=== PATIENT | female | born 1950 | race Caucasian/White ===

== ENCOUNTER → 2016-03-19 | Outpatient (CLI) | payer OTHER, BC ==
[~2016-03-19] MED LIST: ATOR-14 PO; CALC500C3 PO; CLON1TAB3 PO; GLC/500 PO; LOSA100T2 PO; MULT-190 PO; MULTTAB58 PO; OMEP40CA PO; PRED20TA2 PO; ROPI0.5T15 PO; VENL75CA73 PO
--- NOTE | 2016-03-20 06:54 | PAP/PSG TECHNICIAN REPORT ---
[facility] Maintenance Chief Polysomnogram Report Study name: None Report date: 03/20/2016 Study date: 03/19/2016 Referring Physician: JENNIFER CAPUTO M.D. Name: SHAYNA PADRON Interpreting Physician: Johann Pittman M.D. Date of : 1950 Maintenance Chief: Tamika Wood, PSGT. Sex: Female Age: 65 StudyType: PSG/C-PAP Weight: 257.4 lbs Height: 65 years, Height 5' 8" BMI: 39.13 Medications: Clonazepam 1 mg, Omeprazole 40 mg, Atorvastatin 10 mg, Venlafaxine ER 75 mg, Losartan HCTZ 100-25 mg, Metformin 500 mg, Tums. Patient History 65 yr. old female presents [facility] for a diagnostic titration sleep study, pt. has been using c-pap for 15 years. Pt. is on the pressure of 18 cm h20 and is still feeling fatigue and daytime sleepiness. Parameters Monitored NPSG: E1-M2, E2-M1, Fp1-M2, Fp2-M1, F3-M2, F4-M2, F4-M1, C3-M2, C4-M2, C4-M1, O1-M2, O2-M2, O2-M1, T3-M2, T4-M1, P3-M2, P4-M1, CHIN1, CHIN2, HR, EKG, Legs, PFLOW, SNOR, FLOW, CFLOW, Tidal Volume, THOR, ABDO, SpO2, PLTH, CPRESS, ETCO2 Wave, ETCO2, pH Sleep Architecture Sleep Stages Time at Lights Off 10:44:15 PM STAGES Time (min.) TST (%) Time at Lights On 5:33:45 AM Wake 154.5 -- Total Recording Time (TRT) 410.50 min. N1 83.0 33 Total Sleep Period (TSP) 382.5 min. N2 157.5 62 Total Sleep Time (TST) 255.0min. N3 0.0 0 Awake Time 154.5 min. REM 14.5 6 Wake after Sleep Onset 127.5 min. Sleep Efficiency (SE) 62 % Sleep Onset Latency (SHAWN) 27.0 min. Number of Stage 1 Shifts None Awakenings 17 Stage Changes 54 Number of REM periods 2 REM 14.5 6 REM Latency 305.5 min. NREM 240.5 94 Body Position Analysis Supine Right Left Side Prone Vertical Total Sleep Time (min.) 80.0 75.8 139.2 214.97 0.0 0.0 Total Sleep Time (%) 16% 30% 55% 84 0% N/A% Total Sleep Time REM (min.) 0.0 0.0 14.5 None 0.0 0.0 Total Sleep Time NREM (min.) 40.0 75.8 124.7 None 0.0 0.0 Intermittent Wake (min.) 40.0 35.9 78.6 None 0.0 0.0 Total Sleep Period (%) 20% None None None None None Arousals Myoclonus (PLM) * Events Count Index Events Count Index Spontaneous 40 9 Events Awake (PLMW) 6 2.3 Respiratory 10 2.4 Events Asleep w/ Arousal (PLMA) 47 11.1 PLM 46 11 Events Asleep w/o Arousal (PLMS) 312 73.4 Snoring 15 4 Total Asleep 359 84.5 Total 109 26 Total 365 53 Respiratory Analysis * CA OA MA CH H RERA Total Count 0 0 0 0 39 0 39 Index 0.0 0.0 0.0 0 9.2 0 9.2 Mean Duration 0.0 0.0 0.0 0.00 25.7 0.0 25.7 Longest Duration 0.0 0.0 0.0 0.00 0.0 0.0 48.8 Respiratory Event Summary Total Supine ~Supine Right Left Prone REM NREM Apneas Count 0 0 0 0 0 N/A 0 0 Index 0.0 0 0 0.0 0.0 N/A 0 0 Hypopneas (4% Desat) Count 39 29 10 6 4 N/A 0 39 Index 9.2 43.5 3 4.8 1.7 N/A 0.0 9.7 Apneas & All Hypopneas Count 39 29 10 6 4 N/A 0 39 Index 9.2 43 3 5 2 N/A 0.0 9.7 Respiratory Events (Forest Pathology Professor+All Hyp+RERA) Count 39 29 10 6 4 N/A 0 39 Index 9.2 43 3 4.8 1.7 N/A 0.0 9.7 Respiratory Related Arousal Count 10 29 4 4 0 N/A 0 10 Index 2.4 9 1 3 0 N/A 0 2 Snoring Analysis Supine Right Left Prone REM NREM Total Snore duration 11.0 min Snores count 243 143 55 N/A 0 441 441 Snore mean duration 1.5 Sec Snores index 364 113 24 N/A 0.0 110.0 103.8 TST with snoring (%) 4.3% Desaturation Event Summary: Minimum %SpO2 Event Count Mean/Min/Max Duration(sec.) Desaturation Index % Time In Bed > 90 43 29.7 / 9.3 / 59.3 6.6 98.1 86 - 90 0 N/A 0.0 1.8 81 - 85 0 N/A 0.0 0.1 76 - 80 0 N/A 0.0 0.0 71 - 75 0 N/A 0.0 0.0 66 - 70 0 N/A 0.0 0.0 61 - 65 0 N/A 0.0 0.0 56 - 60 0 N/A 0.0 0.0 51 - 55 0 N/A 0.0 0.0 < 50 0 N/A 0.0 0.0 Total REM NREM Awake <50% 0.0 min. 0.0 min. 0.0 min. 0.0 min. 51 - 60% 0.0 min. 0.0 min. 0.0 min. 0.0 min. 61 - 70% 0.0 min. 0.0 min. 0.0 min. 0.0 min. 71 - 80% 0.0 min. 0.0 min. 0.0 min. 0.0 min. 81 - 90% 7.6 min. 0.0 min. 1.1 min. 6.6 min. 91 - 100% 392.5 min. 14.5 min. 238.3 min. 139.7 min. Average 94 95 94 94 Minimum SpO2 81 94 89 81 Desaturation Event Index 6.3 0.0 10.7 0.4 # Desat. Events below 89% N/A N/A N/A N/A Time(%) with Saturation below 89% 0.5 0.0 0.0 0.5 Time(min.) with Saturation below 89% 1.9 0.0 0.0 1.9 Heart Rate Analysis End Tidal CO2 Analysis Min (bpm) Max (bpm) Average (bpm) TSP (mins) % of TSP Awake 68 167 80 Above 55 mmHg 0.0 0.0 NREM 66 92 80 50-55 mmHg 0.0 0.0 REM 74 88 79 45-50 mmHg 255.0 100.0 Overall 66 92 80 40-45 mmHg 0.0 0.0 35-40 mmHg 0.0 0.0 30-35 mmHg 0.0 0.0 Average ETCO2 0.0 Supplemental O2 Values Minimum O2 level: None Value Start Time End Time Maintenance Chief Comments PAP Study: Mrs. Padron slept in the right, left, and supine positions. No cardiac arrhythmia, PLM's noted. No bruxism noted. CPAP was initiated at +4 CMH2O and up-titrated to an optimal level of +[id number], which nearly eliminated all respiratory events and snoring. Pt. was up to use the restroom once.Pt. was restless and moved legs throughput study, her sleep was very fragmented. She was increased often when test started for comfort and snoring. may benefit another test after her leg medication is adjusted. rolled to her back the last 45 minutes of the test she started to snore and have respiratory events at that time. The final report will be interpreted and signed by a sleep physician. The completed physician report will then be placed in the patient medical record. Therapy Event: Therapy (cm H20) 0 8 10 12 14 15 Total Time at Pressure (min.) 0.9 6.5 9.5 74.1 292.0 26.4 TST at Pressure (min.) 0.0 0.0 0.0 45.6 183.0 26.4 # Periods 1 1 1 1 1 1 Sleep Onset (min.) N/A N/A N/A 10.0 0.0 0.0 REM Onset (min.) N/A N/A N/A N/A 241.4 N/A Sleep Efficiency % 0 0 0 61 62 100 Wakefulness (%) 100.0 100.0 100.0 38.4 37.3 0.0 Wakefulness (min.) 0.9 6.5 9.5 28.5 109.0 0.0 NREM 1 (%) 0.0 0.0 0.0 6.1 24.0 31.8 NREM 1 (min.) 0.0 0.0 0.0 4.5 70.1 8.4 NREM 2 (%) 0.0 0.0 0.0 55.5 33.7 68.2 NREM 2 (min.) 0.0 0.0 0.0 41.1 98.4 18.0 NREM 3 (%) 0.0 0.0 0.0 0.0 0.0 0.0 NREM 3 (min.) 0.0 0.0 0.0 0.0 0.0 0.0 REM (%) 0.0 0.0 0.0 0.0 5.0 0.0 REM (min.) 0.0 0.0 0.0 0.0 14.5 0.0 # Arousals N/A N/A N/A 34 58 17 Arousal Index N/A N/A N/A 44.7 19.0 38.6 # Snore N/A N/A N/A 143 98 200 Snore Index N/A N/A N/A 188.1 32.1 454.4 AHI N/A N/A N/A 7.9 6.2 31.8 AHI Supine N/A N/A N/A N/A 66.1 31.8 AHI Non-Supine N/A N/A N/A 7.9 1.4 N/A NREM AHI N/A N/A N/A 7.9 6.8 31.8 REM AHI N/A N/A N/A N/A 0.0 N/A RDI N/A N/A N/A 7.9 6.2 31.8 # Obstructive N/A N/A N/A 0 0 0 # Central Ap N/A N/A N/A 0 0 0 # Mixed N/A N/A N/A 0 0 0 # Hypopneas N/A N/A N/A 6 19 14 RERAS N/A N/A N/A 0 0 0 Total Respiratory Events N/A N/A N/A 6 19 14 Time Below SpO2 89.00% (min.) 0.0 0.0 0.0 0.0 0.0 0.0 Mean NREM SpO2 (%) N/A N/A N/A 94 94 94 Mean REM SpO2 (%) N/A N/A N/A N/A 95 N/A Mean Sleep SpO2 (%) N/A N/A N/A 94 94 94 Min NREM SpO2 (%) N/A N/A N/A 90 89 90 Min REM SpO2 (%) N/A N/A N/A N/A 94 N/A Position Supine (min.) 0.0 0.0 0.0 0.0 13.6 26.4 Position Non-supine (min.) 0.0 0.0 0.0 45.6 169.3 0.0 LM Index Sleep N/A N/A N/A 144.7 72.5 63.6 LM Index NREM N/A N/A N/A 144.7 72.7 63.6 LM Index REM N/A N/A N/A N/A 70.3 N/A Mean Heart Rate (bpm) N/A N/A N/A 85 79 75 Min Heart Rate (bpm) N/A N/A N/A 77 66 68
--- NOTE | 2016-03-24 01:45 | POLYSOMNOGRAPH REPORT ---
CLINICAL DATA: A 65-year-old female with a BMI of 39.13, referred by Dr. Levar Acosta for CPAP titration study. She has been on the CPAP for 15 years at 18 cm of water pressure and is still feeling fatigue and daytime sleepiness. SLEEP ARCHITECTURE: Total sleep period was 382.5 minutes. Total sleep time was 255 minutes divided between 240.5 minutes of non-REM sleep and 14.5 minutes of REM sleep. Sleep onset latency was 27 minutes. REM latency was delayed at 305.5 minutes. Sleep efficiency was reduced at 62%. Wake after sleep onset was elevated at 127.5 minutes. Sleep consisted of stage N1 33%, N2 62%, and REM 6%. AROUSAL DATA: 109 arousals were recorded for an index of 26 per hour. PLM DATA: Markedly elevated limb movements during sleep were noted. There were 359 limb movements during sleep noted for an index of 84.5 per hour with arousal index of 11.1 per hour. RESPIRATORY DATA: AHI was 9.2. There were 39 hypopneic episodes. The mean duration of hypopnea was 25.7 seconds. OXIMETRY DATA: No significant hypoxemia was seen but oxygen daniel was 89% during non-REM sleep. Mean saturation was 94%. EKG: Heart rates ranged from 66-92 beats per minute. No arrhythmias were noted. DRAPERY CUTTER MACHINE'S COMMENTS AND TREATMENT SUMMARY: The patient was started on CPAP at 4 cm of water pressure and was titrated incrementally up to 15 cm of water pressure. She had leg movements throughout the entire study and her sleep was very fragmented. She slept for 183 minutes with her CPAP at 14 cm of water pressure with an AHI of 6.2. However, then she rolled over onto her back and began having apneic episodes again. Her CPAP was taken up to 15 cm of water pressure but she had a residual AHI of 31.8 at the end of the study. It was felt that her sleep was very disrupted because of leg movements. IMPRESSION: Obstructive sleep apnea with incomplete CPAP titration. The patient was taken up to 14 cm of water pressure. However, she rolled over onto her back at the end of the study and had recurrent apneic episodes. There was not enough time to adjust her CPAP at that time. She also had very frequent arousals and awakenings through the night due to severe periodic limb movement disorder which may need to be addressed. RECOMMENDATIONS: The patient should be considered for treatment of PLMD and workup for causes of PLMD. After that has been controlled clinically, a repeat CPAP titration study could be considered to see if her pressure needs adjusted any further. SUADD
== END | disposition home or self-care (01) ==
LOC: C.NEUR 21:00
PROVIDERS: ATTEND Internal Medicine Geriatric Medicine
DX: G47.33 Obstructive sleep apnea (adult) (pediatric) (principal)

== ENCOUNTER → 2016-04-12 | Outpatient (CLI) | payer OTHER, BC ==
[~2016-04-12] MED LIST changes: -PRED20TA2 PO
--- NOTE | 2016-04-12 16:42 | MAMMOGRAPHY REPORT ---
BILATERAL DIGITAL SCREENING MAMMOGRAM WITH CAD: 04/12/2016 CLINICAL HISTORY: Routine screening examination. TECHNIQUE: Bilateral CC, MLO and left cleavage views were obtained. Current study was also evaluat ed with a Computer Aided Detection (CAD) system. COMPARISON: Comparison is made to exams dated: 04/03/2015 mammogram, 04/02/2014 mammogram, 02/12/2013 mammogram, and 02/02/2011 mammogram - [facility]. BREAST COMPOSITION: The tissue of both breasts is almost entirely fatty. FINDINGS: There are minimal vascular calcifications in the breasts. Stable intramammary lymph nodes in each upper outer quadrant. No suspicious mass, architectural distortion or cluster of microcalc ifications is seen. IMPRESSION: ACR BI-RADS CATEGORY 1: NEGATIVE There is no mammographic evidence of malignancy. A 1 year screening mammogram is recommended. The p atient will receive written notification of the results. Approximately 10% of breast cancers are not detected with mammography. A negative mammographic repor t should not delay biopsy if a clinically suggestive mass is present. Sheila Garcia M.D. ay/:04/12/2016 15:40:30 Livestock Speculator: Cyndi ANDUJAR(Fadia)([employer]), [facility] letter sent: Normal 1/2 BI-RADS Code: ACR BI-RADS Category 1: Negative
== END | disposition home or self-care (01) ==
LOC: C.MAMM 10:15
PROVIDERS: ATTEND Internal Medicine Geriatric Medicine
DX: Z12.31 Encounter for screening mammogram for malignant neoplasm of breast (principal)

== ENCOUNTER → 2016-04-15 | Day surgery (SDC) | payer OTHER, BC ==
[2016-04-05 14:48] VITALS: Ht 175.3 cm; Wt 118.2 kg
[~2016-04-15] VITALS: Ht 175.3 cm; Wt 118.2 kg
[~2016-04-15] MED LIST changes: +LIDOCAINE HCL 2% 2 ML VIAL (20MG/ML) ONE; +PROPOFOL IV EMULSION 10 MG/ML 20 ML VIAL IV ONE; +SODIUM CHLORIDE 0.9% 500ML 500 ML IV ONE
[2016-04-15 12:34] VITALS: TEMP 36.5
--- NOTE | 2016-04-15 12:52 | Endo History and Physical ---
History & Physical Date of Service: Apr 15, 2016. Chief Complaint: Crohn's, Hx polyps Referring Physician: Levar Acosta History of Present Illness 65 yo CF who presents for colonoscopy secondary to Crohn's disease and history of colon polyps. Past Medical History Diabetes, Arthritis, Reflux, Sleep Apnea, Hypertension, Depression Past Surgical History Hx Cardiac Surgery: No Hx Internal Defibrillator: No Hx Pacemaker: No Hx Abdominal Surgery: No Hx of Implantable Prosthesis: No Hx Post-Op Nausea and Vomiting: No Hx Cancer Surgery: No Hx Thoracic Surgery: No Hx Orthopedic: Yes (L/R CTR, RT FOOT SURGERY) Hx Urinary Tract Surgery: No Family History Polyp Social History Smoking Status: Never Smoker Hx Substance Use: No Hx Alcohol Use: No Allergies Coded Allergies: Sulfamethoxazole w/Trimethoprim (Verified Allergy, Intermediate, BROKE OUT IN HIVES, 04/05/16) Lisinopril (Verified Allergy, Unknown, UNKNOWN, 04/05/16) Liver (Verified Allergy, Unknown, REDNESS, ITCHING, SWELLING, 04/05/16) Phenylmercuric Nitrate (Verified Allergy, Unknown, REDNESS, ITCHING, SWELLING, 04/05/16) Raloxifene (Verified Allergy, Unknown, UNKNOWN, 04/05/16) Shark Liver Oil (Verified Allergy, Unknown, REDNESS, ITCHING, SWELLING, ) Yeast (Verified Allergy, Unknown, REDNESS, ITCHING, SWELLING, 04/05/16) Azithromycin (Verified Adverse Reaction, Mild, VOMIT, 04/05/16) Amoxicillin (Verified Adverse Reaction, Unknown, GAVE PATIENT C-DIFF, 04/05) Current Medications Reported Home Medications Medications Dose Route/Sig Max Daily Dose Days Date Category Dose Instructions Requip (Ropinirole HCl) 0.5 Mg Tab 0.5 Mg PO HS 04/05/16 Reported Tums (Calcium Carbonate) 500 Mg Chew 2 Tabs PO QAM 04/23/14 Reported Ocuvite Preservision (Multivitamins/Minerals) 1 Tab Tab 1 Tab PO QAM 04/23/14 Reported Prilosec (Omeprazole) 40 Mg Capcr 40 Mg PO QAM 12/02/12 Reported Hyzaar (Losartan Potassium & Hydrochlo) 1 Tab Tab 1 Tab PO QAM 12/02/12 Reported 100/25 MG DOSE Multivitamin (Multiple Vitamin) 1 Tab Tab 1 Tab PO QAM 01/09/12 Reported Glucophage (Metformin Hcl) 500 Mg Tab 500 Mg PO BID 01/09/12 Reported Venlafaxine Extended Rel (Venlafaxine Hcl) 75 Mg Cap 75 Mg PO QPM 01/09/12 Reported Lipitor (Atorvastatin) 10 Mg Tab 10 Mg PO QPM 01/09/12 Reported Klonopin (Clonazepam) 1 Mg Tab 1 Mg PO HS 12/20/10 Reported Vital Signs Weight (Kilograms): 118.18 Height (Feet): 5 Height (Inches): 9 Date Time Temp Pulse Resp B/P Pulse Ox O2 Delivery O2 Flow Rate FiO2 04/15/16 12:34 36.5 86 20 131/57 96 Room Air Physical Exam General Appearance: WD/WN, no apparent distress Respiratory/Chest: Auscultation: breath sounds normal Cardiovascular: Heart Auscultation: RRR Abdomen: Bowel Sounds: normal Inspection & Palpation: soft, non-distended, no tenderness, guarding & rebound Assessment and Plan Assessment: 65 yo CF who presents for colonoscopy secondary to Crohn's disease and history of colon polyps. Plan: Proceed with colonoscopy.
--- NOTE | 2016-04-15 13:37 | GI REPORT ---
Procedure Date: 04/15/2016 12:49 PM Procedure: Colonoscopy Indications: Follow-up of Crohn's disease Medicines: Monitored Anesthesia Care Complications: No immediate complications. Estimated Blood Loss: Estimated blood loss: none. Procedure: Pre-Anesthesia Assessment: - Prior to the procedure, a History and Physical was performed, and patient medications and allergies were reviewed. The patient's tolerance of previous anesthesia was also reviewed. The risks and benefits of the procedure and the sedation options and risks were discussed with the patient. All questions were answered, and informed consent was obtained. Prior Anticoagulants: The patient has taken no previous anticoagulant or antiplatelet agents. ASA Grade Assessment: III - A patient with severe systemic disease. After reviewing the risks and benefits, the patient was deemed in satisfactory condition to undergo the procedure. After I obtained informed consent, the scope was passed under direct vision. Throughout the procedure, the patient's blood pressure, pulse, and oxygen saturations were monitored continuously. The scope was introduced through the anus and advanced to the terminal ileum. The colonoscopy was performed without difficulty. The patient tolerated the procedure well. The quality of the bowel preparation was good. The ileocecal valve, appendiceal orifice, and rectum were photographed. Findings: Non-bleeding internal hemorrhoids were found during retroflexion. The hemorrhoids were small. The exam was otherwise without abnormality. Impression: - Non-bleeding internal hemorrhoids. - The examination was otherwise normal. - No specimens collected. Recommendation: - Resume previous diet. - Continue present medications. - Repeat colonoscopy in 3 years for surveillance. - Return to primary care physician as previously scheduled. Del Ulrich DO 04/15/2016 1:37:52 PM This report has been signed electronically. Note Initiated On: 04/15/2016 12:49 PM
--- NOTE | 2016-04-15 13:54 | Anesthesiology Progress Note ---
Anesthesia Post Op Note Date & Time Apr 15, 2016 at 13:54 Vital Signs Vital Signs Past 12 Hours Date Time Temp Pulse Resp B/P Pulse Ox O2 Delivery O2 Flow Rate FiO2 04/15/16 13:35 74 18 116/54 96 Room Air 04/15/16 12:34 36.5 86 20 131/57 96 Room Air Notes Mental Status: alert / awake / arousable, participated in evaluation Pt Amnestic to Procedure: Yes Nausea / Vomiting: adequately controlled Pain: adequately controlled Airway Patency, RR, SpO2: stable & adequate BP & HR: stable & adequate Hydration State: stable & adequate Anesthetic Complications: no major complications apparent
--- NOTE | 2016-04-15 14:13 | Discharge Instructions ---
Endoscopy Patient Instructions Date / Procedure(s) Performed Apr 15, 2016. Colonoscopy Allergy Information Coded Allergies: Sulfamethoxazole w/Trimethoprim (Verified Allergy, Intermediate, BROKE OUT IN HIVES, 04/05/16) Lisinopril (Verified Allergy, Unknown, UNKNOWN, 04/05/16) Liver (Verified Allergy, Unknown, REDNESS, ITCHING, SWELLING, 04/05/16) Phenylmercuric Nitrate (Verified Allergy, Unknown, REDNESS, ITCHING, SWELLING, 04/05/16) Raloxifene (Verified Allergy, Unknown, UNKNOWN, 04/05/16) Shark Liver Oil (Verified Allergy, Unknown, REDNESS, ITCHING, SWELLING, ) Yeast (Verified Allergy, Unknown, REDNESS, ITCHING, SWELLING, 04/05/16) Azithromycin (Verified Adverse Reaction, Mild, VOMIT, 04/05/16) Amoxicillin (Verified Adverse Reaction, Unknown, GAVE PATIENT C-DIFF, 04/05) Discharge Date / Findings Apr 15, 2016. Internal hemorrhoids Medication Instructions OK to resume all medications today as prescribed Reported Home Medications Medications Dose Route/Sig Max Daily Dose Days Date Category Dose Instructions Requip (Ropinirole HCl) 0.5 Mg Tab 0.5 Mg PO HS 04/05/16 Reported Tums (Calcium Carbonate) 500 Mg Chew 2 Tabs PO QAM 04/23/14 Reported Ocuvite Preservision (Multivitamins/Minerals) 1 Tab Tab 1 Tab PO QAM 04/23/14 Reported Prilosec (Omeprazole) 40 Mg Capcr 40 Mg PO QAM 12/02/12 Reported Hyzaar (Losartan Potassium & Hydrochlo) 1 Tab Tab 1 Tab PO QAM 12/02/12 Reported 100/25 MG DOSE Multivitamin (Multiple Vitamin) 1 Tab Tab 1 Tab PO QAM 01/09/12 Reported Glucophage (Metformin Hcl) 500 Mg Tab 500 Mg PO BID 01/09/12 Reported Venlafaxine Extended Rel (Venlafaxine Hcl) 75 Mg Cap 75 Mg PO QPM 01/09/12 Reported Lipitor (Atorvastatin) 10 Mg Tab 10 Mg PO QPM 01/09/12 Reported Klonopin (Clonazepam) 1 Mg Tab 1 Mg PO HS 12/20/10 Reported Provider Instructions Activity Restrictions - No exercising or heavy lifting for 24 hours. - Do not drink alcohol the day of the procedure. - Do not drive a car or operate machinery until the day after the procedure. - Do not make any important decisions or sign important papers in 24 hours after the procedure. Following Day: - Return to full activity which may include returning to work/school. Diet Start your diet with liquids and light foods (jello, soup, juice, toast). Then eat your usual diet if not nauseated. Treatment For Common After Affects For mild abdominal pain, bloating, or excessive gas: - Rest - Eat lightly - Lie on right side Follow-Up Information Follow-up with Levar Acosta as scheduled Anesthesia Information What You Should Know You have had a procedure that required some medicine to reduce anxiety and discomfort. This treatment is called moderate sedation. After receiving the treatment, you may be sleepy, but you will be able to breathe on your own. The effects of the treatment may last for several hours. Follow these instructions along with Activity/Diet recommendations noted above: * Do NOT do anything where dizziness or clumsiness would be dangerous. * Rest quietly at home today, then you can be up and about tomorrow. * Have a responsible person stay with you the rest of today. * You may have had an I.V. today. If so, you may take the dressing off later today. Recommendations Call your doctor if: * Trouble breathing * Continuous vomiting for more than 24 hours * Temperature above 101 degrees * Severe abdominal pain or bloating * Pain not relieved by pain medicine ordered * There is increased drainage or redness from any incision * A large amount of rectal bleeding greater than 2-3 tablespoons. (If you had a polyp/s removed or have hemorrhoids, a small amount of blood - from the rectum is to be expected.) * You have any unanswered questions or concerns. IN THE EVENT OF A SERIOUS EMERGENCY, GO TO THE NEAREST EMERGENCY ROOM Your discharge instructions were prepared by provider Del Ulrich. Patient Instructions Signature Page Jane Padron Patient (or Guardian) Signature/Date: I have read and understand the instructions given to me by my caregivers. Caregiver/RN/Doctor Signature/Date: The above-named patient and/or guardian has received patient instructions on this date. + Original Patient Signature Page (only) stays with chart. Please make copy for patient.
[2016-04-15 14:15] VITALS: BP 163/69; PULSE 74; O2SAT 98
== END | disposition home or self-care (01) ==
LOC: C.GI 12:07
PROVIDERS: ATTEND Internal Medicine
DX: K50.90 Crohn's disease, unspecified, without complications (principal); Z86.010 Personal history of colon polyps; K64.8 Other hemorrhoids; K21.9 Gastro-esophageal reflux disease without esophagitis; E11.9 Type 2 diabetes mellitus without complications; I10 Essential (primary) hypertension; F32.9 Major depressive disorder, single episode, unspecified; G47.30 Sleep apnea, unspecified; Z88.1 Allergy status to other antibiotic agents; Z88.2 Allergy status to sulfonamides; Z88.8 Allergy status to other drugs, medicaments and biological substances

== ENCOUNTER → 2016-05-05 | Outpatient (CLI) | payer OTHER, BC ==
[~2016-05-05] VITALS: Ht 172.7 cm; Wt 119.7 kg
[~2016-05-05] MED LIST changes: -LIDOCAINE HCL 2% 2 ML VIAL (20MG/ML) ONE; -PROPOFOL IV EMULSION 10 MG/ML 20 ML VIAL IV ONE; -SODIUM CHLORIDE 0.9% 500ML 500 ML IV ONE
[2016-05-05 10:35] VITALS: BP 148/81; PULSE 93; Ht 172.7 cm; Wt 119.7 kg
== END | disposition home or self-care (01) ==
LOC: C.NEUR 10:16
PROVIDERS: ATTEND Internal Medicine Pulmonary Disease
DX: G47.33 Obstructive sleep apnea (adult) (pediatric) (principal); G25.81 Restless legs syndrome

== ENCOUNTER → 2016-07-01 | Outpatient (CLI) | payer OTHER, BC ==
[2016-07-01 12:36] LABS: ESTIMATED AVERAGE GLUCOSE 140 mg/dl; HA1C FLAG Normal (Normal)
[2016-07-01 13:07] LABS: BLOOD UREA NITROGEN 14 mg/dl (7-18); BUN/CREATININE RATIO 16.4 (10-20); CARBON DIOXIDE 28 mmol/L (21-32); CHLORIDE 105 mmol/L (98-107); CREATININE 0.86 mg/dl (0.60-1.20); GLUCOSE 109 mg/dl (70-99); POTASSIUM 3.8 mmol/L (3.5-5.1); SODIUM 141 mmol/L (136-145)
[2016-07-01 13:14] LABS: CALCIUM 9.3 mg/dl (8.5-10.1)
== END | disposition home or self-care (01) ==
LOC: C.LAB 10:06
PROVIDERS: ATTEND Internal Medicine Geriatric Medicine
DX: M19.90 Unspecified osteoarthritis, unspecified site (principal); I10 Essential (primary) hypertension; E11.9 Type 2 diabetes mellitus without complications; G25.81 Restless legs syndrome; R91.8 Other nonspecific abnormal finding of lung field; K21.9 Gastro-esophageal reflux disease without esophagitis; Z11.59 Encounter for screening for other viral diseases

== ENCOUNTER → 2016-07-07 | Outpatient (CLI) | payer OTHER, BC ==
[~2016-07-07] VITALS: Ht 175.3 cm; Wt 121.0 kg
[2016-07-07 11:38] VITALS: BP 134/82; PULSE 80; Ht 175.3 cm; Wt 121.0 kg
== END | disposition home or self-care (01) ==
LOC: C.NEUR 10:26
PROVIDERS: ATTEND Internal Medicine Pulmonary Disease
DX: G47.33 Obstructive sleep apnea (adult) (pediatric) (principal); G25.81 Restless legs syndrome

== ENCOUNTER → 2017-02-08 | Outpatient (CLI) | payer OTHER, BC ==
[2017-02-08 14:43] LABS: MANUAL MICROSCOPIC REQUIRED? NO; REVIEW REQ? NO; URINE APPEARANCE CLEAR (CLEAR); URINE BILIRUBIN NEG (NEG); URINE COLOR YELLOW; URINE EPITHELIAL CELL AUTO >30 /lpf (0-5); URINE NITRITE NEG (NEG); URINE PH 5.5 (4.5-7.5); URINE SPECIFIC GRAVITY 1.017 (1.000-1.030); UROBILINOGEN NEG (NEG); ZZUR CULT IF INDIC CLEAN CATCH NO
== END | disposition home or self-care (01) ==
LOC: C.LAB 12:50
PROVIDERS: ATTEND Internal Medicine Geriatric Medicine
DX: R31.0 Gross hematuria (principal)

== ENCOUNTER → 2017-02-14 | Outpatient (CLI) | payer OTHER, BC ==
[2017-02-14 11:11] LABS: BASO % 0.3 %; BASO ABS # 0.04 K/uL (0-0.2); COMPLETE YES; HEMATOCRIT 41.8 % (37-47); IG% 0.4 %; LYMPH % 20.9 %; LYMPH ABS # 3.02 K/uL (1.2-3.4); MEAN CELL VOLUME 89.9 fL (80-100); MEAN CORPUSCULAR HEMOGLOBIN 30.1 pg (25-34); MEAN CORPUSCULAR HGB CONC 33.5 g/dl (32-36); MEAN PLATELET VOLUME 9.2 fL (7.4-10.4); MONO % 10.4 %; PLATELET COUNT 418 K/uL (130-400); RED BLOOD COUNT 4.65 M/uL (4.2-5.4); WHITE BLOOD COUNT 14.42 K/uL (4.8-10.8)
[2017-02-14 11:40] LABS: ESTIMATED AVERAGE GLUCOSE 137 mg/dl; HA1C FLAG Normal (Normal)
[2017-02-14 12:47] LABS: ALB/GLOB RATIO 0.8 (0.9-2); ALT/SGPT 26 U/L (12-78); AST/SGOT 10 U/L (15-37); BLOOD UREA NITROGEN 22 mg/dl (7-18); BUN/CREATININE RATIO 22.9 (10-20); CALCIUM 8.8 mg/dl (8.5-10.1); CARBON DIOXIDE 28 mmol/L (21-32); CHLORIDE 102 mmol/L (98-107); CREATININE 0.96 mg/dl (0.60-1.20); GLUCOSE 135 mg/dl (70-99); POTASSIUM 3.7 mmol/L (3.5-5.1); SODIUM 135 mmol/L (136-145)
[2017-02-14 12:58] LABS: ALKALINE PHOSPHATASE 102 U/L (45-117); CHOLESTEROL 152 mg/dl (0-200); CHOLESTEROL/HDL RATIO 2.8; HDL CHOLESTEROL 54 mg/dl; LDL CHOLESTEROL CALCULATED 52 mg/dl; TRIGLYCERIDES 228 mg/dl (0-150); VERY LOW DENSITY LIPOPROT CALC 46 mg/dl
== END | disposition home or self-care (01) ==
LOC: C.LAB 10:30
PROVIDERS: ATTEND Internal Medicine Geriatric Medicine
DX: M19.90 Unspecified osteoarthritis, unspecified site (principal); I10 Essential (primary) hypertension; K50.90 Crohn's disease, unspecified, without complications; E78.5 Hyperlipidemia, unspecified; E11.9 Type 2 diabetes mellitus without complications

== ENCOUNTER → 2017-02-17 | Outpatient (CLI) | payer OTHER, BC ==
[~2017-02-17] MED LIST changes: +OPTIRAY 320 IV PRN
--- NOTE | 2017-02-17 08:59 | DIAGNOSTIC IMAGING REPORT ---
CT ABD/PELVIS COMBO CLINICAL HISTORY: R31.0 Gross hematuria COMPARISON STUDY: 12/18/2012 TECHNIQUE: Unenhanced images were obtained through the abdomen and pelvis. The patient was injected with 50 cc of Optiray 320. After and September, the patient was reimaged in a dynamic helical fashion during the additional intravenous administration of 69 cc of Optiray 320. A dose lowering technique was utilized adhering to the principles of ALARA. CT DOSE: 2154.84 mGycm FINDINGS: Lower chest: The heart is mildly enlarged. There is no focal basilar pulmonary consolidation. There is a low suspicion 4 millimeter right lower lobe pulmonary nodule. In a low risk patient, no further follow-up is indicated. Liver: There are relatively stable hypodense hepatic lesions, most consistent with cysts. The portal vein appears patent. Gallbladder: Unremarkable. Spleen: Normal in size and attenuation. Pancreas: Unremarkable. Adrenal glands: Unremarkable. Kidneys: No renal, ureteral, or bladder calculi are visualized. There is a 1 cm right renal cyst. 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 There is a to small to characterize 4 mm mid pole left renal hypodense lesion likely representing a cyst. No collecting system filling defects are visualized. No ureteral lesions are delineated. Bowel: There are no transition zones to indicate bowel obstruction. There is no acute diverticulitis. There is no evidence of acute appendicitis. Peritoneum: There is no intraperitoneal free air or abdominal ascites. There is a fat-containing of focal hernia Vasculature: The abdominal aorta is normal in course and caliber. There is a retroaortic left renal vein Adenopathy: None. Pelvic viscera: There is a nabothian gland cyst present. No bladder lesions are visualized. Skeletal structures: No destructive osseous lesions are seen. IMPRESSION: 1. No renal, ureteral, or bladder calculi identified 2. No uroepithelial lesions are visualized 3. 1 cm right renal cyst. 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 Stable hepatic hypodense lesions, consistent with cysts Electronically signed by: Zackary Aponte M.D. 02/17/2017 8:58 AM Dictated Date/Time: 02/17/2017 8:49 AM
== END | disposition home or self-care (01) ==
LOC: C.CTS 08:12
PROVIDERS: ATTEND Internal Medicine Geriatric Medicine
DX: R31.0 Gross hematuria (principal); N28.1 Cyst of kidney, acquired; D30.02 Benign neoplasm of left kidney; K76.9 Liver disease, unspecified

== ENCOUNTER → 2017-03-10 | Outpatient (CLI) | payer OTHER, BC ==
[~2017-03-10] MED LIST changes: +CLON1TAB10 PO; -CLON1TAB3 PO; -OPTIRAY 320 IV PRN
== END | disposition home or self-care (01) ==
LOC: C.PAPS 13:24
PROVIDERS: ATTEND Obstetrics & Gynecology
DX: Z12.4 Encounter for screening for malignant neoplasm of cervix (principal)

== ENCOUNTER → 2017-03-16 | Outpatient (CLI) | payer OTHER, BC ==
[~2017-03-16] MED LIST changes: -CLON1TAB10 PO; +CLON1TAB3 PO
--- NOTE | 2017-03-17 06:01 | PAP/PSG TECHNICIAN REPORT ---
[facility] Lawn Specialist Polysomnogram Report Study name: None Report date: 03/17/2017 Study date: 03/16/2017 Referring Physician: JENNIFER CAPUTO M.D. Name: SHAYNA PADRON Interpreting Physician: Johann Pittman M.D. Date of : 1950 Lawn Specialist: Suad Moon RPSGT. Sex: Female Age: 66 Study Type: PSG PAP Weight: 237 lbs Height: 66 years, Height 5' 9" Neck Circum: BMI: 34.99 Medications: CLONAZEPAM 1 MG, VENLAFAXINE 75 MG, PEG 3350/ELECTROLYTES 240 GM, ATORVASTATIN 10 MG, OMEPRAZOLE 40 MG, MULTI VIT, LOSARTAN-HCTZ 100-25 MG, VOLTAREN, DOXYCYCLINE HYCLATE 100 MG, FLONASE, NITROFURANTOIN MONOHYD MACRO, METFORMIN 500 MG, OCUVITE, TUMS Patient History 66 yr-old female here for a CPAP update study. She has been using CPAP for about 15 years. She is still experiencing daytime sleepiness and fatigue. She is back to assess pressure settings. Her [place] scale is 15. The test was started on room air and 4 CMH2O. ETCO2 testing was not utilized during this study. Room 1 Parameters Monitored NPSG: E1-M2, E2-M1, Fp1-M2, Fp2-M1, F3-M2, F4-M2, F4-M1, C3-M2, C4-M2, C4-M1, O1-M2, O2-M2, O2-M1, T3-M2, T4-M1, P3-M2, P4-M1, CHIN1, CHIN2, HR, EKG, Legs, PFLOW, SNOR, FLOW, CFLOW, Tidal Volume, THOR, ABDO, SpO2, PLTH, CPRESS, ETCO2 Wave, ETCO2, pH Sleep Architecture Sleep Stages Time at Lights Off 10:38:48 PM STAGES Time (min.) TST (%) Time at Lights On 5:35:48 AM Wake 56.5 -- Total Recording Time (TRT) 416.50 min. N1 75.0 21 Total Sleep Period (TSP) 414.5 min. N2 202.0 56 Total Sleep Time (TST) 360.0min. N3 0.0 0 Awake Time 56.5 min. REM 83.0 23 Wake after Sleep Onset 54.5 min. Sleep Efficiency (SE) 86 % Sleep Onset Latency (SHAWN) 2.5 min. Number of Stage 1 Shifts None Awakenings 29 Stage Changes 137 Number of REM periods 5 REM 83.0 23 REM Latency 183.5 min. NREM 277.0 77 Body Position Analysis Supine Right Left Side Prone Vertical Total Sleep Time (min.) 40.4 233.1 87.5 320.57 0.0 0.0 Total Sleep Time (%) 11% 65% 24% 89 0% N/A% Total Sleep Time REM (min.) 32.5 50.5 0.0 None 0.0 0.0 Total Sleep Time NREM (min.) 6.9 182.6 87.5 None 0.0 0.0 Intermittent Wake (min.) 0.9 20.8 34.8 None 0.0 0.0 Total Sleep Period (%) 10% None None None None None Arousals Myoclonus (PLM) * Events Count Index Events Count Index Spontaneous 26 4 Events Awake (PLMW) 70 74.3 Respiratory 30 5.2 Events Asleep w/ Arousal (PLMA) 63 10.5 PLM 63 11 Events Asleep w/o Arousal (PLMS) 513 85.5 Snoring 11 2 Total Asleep 576 96.0 Total 130 22 Total 646 93 Respiratory Analysis * CA OA MA CH H RERA Total Count 3 0 0 0 37 6 40 Index 0.5 0.0 0.0 0 6.2 1 7.7 Mean Duration 11.1 0.0 0.0 0.00 21.2 16.3 19.9 Longest Duration 13.1 0.0 0.0 0.00 0.0 19.0 46.7 Respiratory Event Summary Total Supine ~Supine Right Left Prone REM NREM Apneas Count 3 1 2 2 0 N/A 3 0 Index 0.5 2 0 0.5 0.0 N/A 2 0 Hypopneas (4% Desat) Count 37 4 33 29 4 N/A 0 37 Index 6.2 6.1 6 7.5 2.7 N/A 0.0 8.0 Apneas & All Hypopneas Count 40 5 35 31 4 N/A 3 37 Index 6.7 8 7 8 3 N/A 2.2 8.0 Respiratory Events (Cooler Servicer+All Hyp+RERA) Count 40 5 41 37 4 N/A 3 37 Index 7.7 8 8 9.5 2.7 N/A 2.2 9.3 Respiratory Related Arousal Count 30 5 29 26 3 N/A 0 31 Index 5.2 3 5 7 2 N/A 0 7 Snoring Analysis Supine Right Left Prone REM NREM Total Snore duration 16.0 min Snores count 23 550 57 N/A 7 623 630 Snore mean duration 1.5 Sec Snores index 35 142 39 N/A 5.1 134.9 105.0 TST with snoring (%) 4.4% Desaturation Event Summary: Minimum %SpO2 Event Count Mean/Min/Max Duration(sec.) Desaturation Index % Time In Bed > 90 74 25.5 / 5.8 / 52.3 11.6 94.6 86 - 90 2 9.8 / 5.8 / 13.8 5.5 5.4 81 - 85 0 N/A 0.0 0.0 76 - 80 0 N/A 0.0 0.0 71 - 75 0 N/A 0.0 0.0 66 - 70 0 N/A 0.0 0.0 61 - 65 0 N/A 0.0 0.0 56 - 60 0 N/A 0.0 0.0 51 - 55 0 N/A 0.0 0.0 < 50 0 N/A 0.0 0.0 Total REM NREM Awake <50% 0.0 min. 0.0 min. 0.0 min. 0.0 min. 51 - 60% 0.0 min. 0.0 min. 0.0 min. 0.0 min. 61 - 70% 0.0 min. 0.0 min. 0.0 min. 0.0 min. 71 - 80% 0.0 min. 0.0 min. 0.0 min. 0.0 min. 81 - 90% 21.7 min. 0.1 min. 16.7 min. 4.9 min. 91 - 100% 382.8 min. 82.9 min. 259.9 min. 39.9 min. Average 93 94 93 93 Minimum SpO2 85 90 85 86 Desaturation Event Index 10.7 1.4 10.4 26.5 # Desat. Events below 89% 10 N/A 6 4 Time(%) with Saturation below 89% 0.5 0.0 0.2 0.3 Time(min.) with Saturation below 89% 1.9 0.0 0.9 1.0 Time (mins) REM (mins) NREM (mins) % of TST SpO2 Below 90% 25 1 N24 1.3 SpO2 Below 88% 3 0 0 0 Heart Rate Analysis Min (bpm) Max (bpm) Average (bpm) Awake 51 93 77 NREM 60 91 76 REM 62 95 76 Overall 60 95 76 Supplemental O2 Values Minimum O2 level: None Value Start Time End Time Lawn Specialist Comments Ms. Padron slept in the right, supine, and left positions. No cardiac arrhythmias were noted. Many PLMs and many arousals from leg movements were noted. No bruxism noted. CPAP was initiated at +4 CMH2O and up-titrated to a level of +14 CMH2O, Cflex 2. She started the test using her older style [employer] full face mask that fits under the chin. Due to high mask leak, she was then switched to a Quattro Air full face mask size medium from [employer]. She awoke to use the restroom two times during the night. Ms. Padron stated that she slept ok. The final report will be interpreted and signed by a sleep physician. The completed physician report will then be placed in the patient medical record. Therapy Event: Therapy (cm H20) 4 7 9 10 11 12 14 Total Time at Pressure (min.) 0.1 102.7 62.3 22.5 173.2 20.6 35.1 TST at Pressure (min.) 0.0 83.8 58.8 21.0 143.2 18.6 34.6 # Periods 1 1 1 1 1 1 1 Sleep Onset (min.) N/A 2.4 0.0 0.0 0.0 0.0 0.0 REM Onset (min.) N/A N/A N/A 20.4 0.0 N/A 0.1 Sleep Efficiency % 0 81 94 93 82 90 98 Wakefulness (%) 100.0 18.4 5.6 6.7 17.3 9.7 1.4 Wakefulness (min.) 0.1 18.9 3.5 1.5 30.0 2.0 0.5 NREM 1 (%) 0.0 20.2 14.0 31.1 18.3 27.8 2.8 NREM 1 (min.) 0.0 20.8 8.7 7.0 31.8 5.7 1.0 NREM 2 (%) 0.0 61.4 80.4 53.0 36.4 62.5 3.2 NREM 2 (min.) 0.0 63.0 50.1 11.9 63.0 12.9 1.1 NREM 3 (%) 0.0 0.0 0.0 0.0 0.0 0.0 0.0 NREM 3 (min.) 0.0 0.0 0.0 0.0 0.0 0.0 0.0 REM (%) 0.0 0.0 0.0 9.3 28.0 0.0 92.5 REM (min.) 0.0 0.0 0.0 2.1 48.4 0.0 32.5 # Arousals N/A 31 20 21 46 11 1 Arousal Index N/A 22.2 20.4 59.9 19.3 35.5 1.7 # Snore N/A 293 206 50 53 21 7 Snore Index N/A 209.9 210.2 142.7 22.2 67.7 12.1 AHI N/A 7.9 8.2 11.4 4.6 16.1 1.7 AHI Supine N/A N/A N/A N/A 138.3 41.1 1.7 AHI Non-Supine N/A 7.9 8.2 11.4 4.2 8.4 N/A NREM AHI N/A 7.9 8.2 12.7 5.7 16.1 0.0 REM AHI N/A N/A N/A 0.0 2.5 N/A 1.8 RDI N/A 10.7 9.2 14.3 4.6 16.1 1.7 # Obstructive N/A 0 0 0 0 0 0 # Central Ap N/A 0 0 0 2 0 1 # Mixed N/A 0 0 0 0 0 0 # Hypopneas N/A 11 8 4 9 5 0 RERAS N/A 4 1 1 0 0 0 Total Respiratory Events N/A 15 9 5 11 5 1 Time Below SpO2 89.00% (min.) 0.0 0.1 0.3 0.0 0.0 0.5 0.0 Mean NREM SpO2 (%) N/A 92 93 94 94 93 95 Mean REM SpO2 (%) N/A N/A N/A 92 94 N/A 94 Mean Sleep SpO2 (%) N/A 92 93 94 94 93 94 Min NREM SpO2 (%) N/A 86 85 89 88 86 92 Min REM SpO2 (%) N/A N/A N/A 91 90 N/A 91 Position Supine (min.) 0.0 0.0 0.0 0.0 0.4 4.4 34.6 Position Non-supine (min.) 0.0 83.8 58.8 21.0 142.8 14.2 0.0 LM Index Sleep N/A 164.7 79.6 174.1 67.0 141.8 5.2 LM Index NREM N/A 164.7 79.6 190.1 95.6 141.8 0.0 LM Index REM N/A N/A N/A 28.8 11.2 N/A 5.5 Mean Heart Rate (bpm) N/A 79 78 80 73 73 74 Min Heart Rate (bpm) N/A 68 69 68 60 62 63 CPAP REPORT Therapy Detail Time / Page # Comment CPAP 4 cm H2O Full Face Mask Flex Pressure Relief Humidifier on 10:35:26 PM / pg. 173 CPAP 7 cm H2O Full Face Mask Flex Pressure Relief Humidifier on 10:38:54 PM / pg. 180 INCREASED PRESSURE AT HER REQUEST FOR MORE AIR. SHE IS USED TO A HIGH CPAP PRESSURE AT HOME. CPAP 9 cm H2O Full Face Mask Flex Pressure Relief Humidifier on 12:21:34 AM / pg. 385 INCREASED FOR HYPOPNEAS AND SNORING CPAP 10 cm H2O Full Face Mask Flex Pressure Relief Humidifier on 1:24:22 AM / pg. 511 INCREASED FOR HYPOPNEAS CPAP 11 cm H2O Full Face Mask Flex Pressure Relief Humidifier on 1:46:53 AM / pg. 556 INCREASED FOR HYPOPNEAS CPAP 12 cm H2O Full Face Mask Flex Pressure Relief Humidifier on 4:40:04 AM / pg. 902 INCREASED FOR HYPOPNEAS CPAP 14 cm H2O Full Face Mask Flex Pressure Relief Humidifier on 5:00:41 AM / pg. 943 INCREASED FOR HYPOPNEAS WHILE SUPINE
--- NOTE | 2017-03-17 16:08 | POLYSOMNOGRAPH REPORT ---
CLINICAL DATA: A 66-year-old female with a BMI of [address] Levar Acosta for a CPAP titration study. She has been on CPAP for 15 years and is still having excessive daytime sleepiness and fatigue. Her [place] sleepiness score is 15/24. SLEEP ARCHITECTURE: Total sleep period was 414.5 minutes. Total sleep time was 360 minutes divided between 277 minutes of non-REM sleep and 83 minutes of REM sleep. Sleep onset latency was 2.5 minutes. REM latency was 182.5 minutes. Sleep efficiency was 86%. Wake after sleep onset was 54.5 minutes. Sleep consisted of stage N1 21%, stage N2 56%, and REM 23%. AROUSAL DATA: One hundred and thirty arousals were recorded for an index of 22 per hour. Sixty three were due to PLMs. PERIODIC LIMB MOVEMENT DATA: Severe PLMD was noted. There were 576 limb movements during sleep noted for an index of 96 per hour with arousal index of 10.5 per hour. RESPIRATORY DATA: The AHI was 6.7. There were 3 central apneic episodes. The longest duration of apnea was 13.1 seconds. There were 37 hypopneic episodes. The mean duration of hypopnea was 21 seconds. OXIMETRY DATA: Mild nocturnal hypoxemia was seen. Oxygen daniel was 85% during non-REM sleep and mean saturation 93%. Time below 88% was 3 minutes. ECHOCARDIOGRAM: Heart rates ranged from 60-95 beats per minute. No arrhythmias were noted. PSYCHIATRIC SOCIAL WORKER SUPERVISOR'S COMMENTS AND TREATMENT SUMMARY: The patient slept in the right, left, and supine positions. Many arousals were seen through the night due to PLM events. The patient started with her previous facemask but it was then switched to a Quattro full face mask size medium from [employer]. She was titrated up to 14 cm of water pressure, C-Flex setting 2. At her final pressure setting, she slept for 34.6 minutes with an AHI of 1.7. IMPRESSION: 1. Obstructive sleep apnea/hypopnea corrected with CPAP 14 cm of water, C-flex 2 Quattro Air full facemask size medium from [employer]. 2. Severe periodic limb movement disorder with frequent arousals. RECOMMENDATIONS: The patient's CPAP should be changed to 14 cm of water pressure, C-Flex setting 2 with the current facemask. If she continues to have sleep-related symptoms, evaluation and treatment for periodic limb movement disorder of sleep (PLMD) may be of benefit. Clinical correlation is needed. MTDD
== END | disposition home or self-care (01) ==
LOC: C.NEUR 21:00
PROVIDERS: ATTEND Internal Medicine Geriatric Medicine
DX: G47.33 Obstructive sleep apnea (adult) (pediatric) (principal); G47.61 Periodic limb movement disorder

== ENCOUNTER → 2017-03-24 | Outpatient (CLI) | payer OTHER, BC | END | disposition home or self-care (01) | LOC: C.PATHSPEC 16:52 | PROVIDERS: ATTEND Urology | DX: R31.9 Hematuria, unspecified (principal) ==

== ENCOUNTER → 2017-04-14 | Outpatient (CLI) | payer OTHER, BC ==
--- NOTE | 2017-04-14 14:34 | MAMMOGRAPHY REPORT ---
BILATERAL DIGITAL SCREENING MAMMOGRAM TOMOSYNTHESIS WITH CAD: 04/14/2017 CLINICAL HISTORY: Routine screening. Patient has no complaints. TECHNIQUE: Breast tomosynthesis in addition to standard 2D mammography was performed. Current study was also evaluated with a Computer Aided Detection (CAD) system. COMPARISON: Comparison is made to exams dated: 04/12/2016 mammogram, 04/03/2015 mammogram, 04/02/2014 m ammogram, 02/12/2013 mammogram, 02/10/2012 mammogram, and 02/02/2011 mammogram - [facility]. BREAST COMPOSITION: The tissue of both breasts is almost entirely fatty. FINDINGS: No suspicious masses, calcifications, or areas of architectural distortion are noted in ei ther breast. There has been no significant interval change compared to prior exams. IMPRESSION: ACR BI-RADS CATEGORY 1: NEGATIVE There is no mammographic evidence of malignancy. A 1 year screening mammogram is recommended. The pa tient will receive written notification of the results. Approximately 10% of breast cancers are not detected with mammography. A negative mammographic report should not delay biopsy if a clinically suggestive mass is present. Valery Figueroa M.D. ah/:04/14/2017 13:16:01 [employer]ault Worker: Anh ANDUJAR(Fadia)(M), [facility] letter sent: Normal 1/2 BI-RADS Code: ACR BI-RADS Category 1: Negative
== END | disposition home or self-care (01) ==
LOC: C.MAMM 10:50
PROVIDERS: ATTEND Internal Medicine Geriatric Medicine
DX: Z12.31 Encounter for screening mammogram for malignant neoplasm of breast (principal)

== ENCOUNTER → 2017-05-03 | Outpatient (CLI) | payer OTHER, BC ==
--- NOTE | 2017-05-03 14:49 | DIAGNOSTIC IMAGING REPORT ---
R KNEE 1 OR 2 VIEWS ROUTINE, L KNEE 1 OR 2 VIEWS ROUTINE CLINICAL HISTORY: Bilateral knee pain. COMPARISON STUDY: Right knee 08/01/2014. FINDINGS: Moderate cartilage space narrowing within the medial compartment of the right knee. Large tricompartmental marginal osteophytes within the right knee. Severe cartilage space narrowing with [id number] articulation within the right patellofemoral compartment. There is associated subchondral cystic change at this location. Small right knee effusion. Mild cartilage space narrowing within the lateral compartment of the left knee. Moderate sized tricompartmental osteophytes within the left knee. No significant left knee effusion. IMPRESSION: 1. No fractures within the right or left knee. 2. Bilateral knee osteoarthritis, right greater than left, as described above. 3. Small right knee effusion. Electronically signed by: Tiago Hodge M.D. 05/03/2017 2:48 PM Dictated Date/Time: 05/03/2017 2:45 PM
--- NOTE | 2017-05-03 14:49 | DIAGNOSTIC IMAGING REPORT ---
R KNEE 1 OR 2 VIEWS ROUTINE, L KNEE 1 OR 2 VIEWS ROUTINE CLINICAL HISTORY: Bilateral knee pain. COMPARISON STUDY: Right knee 08/01/2014. FINDINGS: Moderate cartilage space narrowing within the medial compartment of the right knee. Large tricompartmental marginal osteophytes within the right knee. Severe cartilage space narrowing with apsa-kw-qgoy articulation within the right patellofemoral compartment. There is associated subchondral cystic change at this location. Small right knee effusion. Mild cartilage space narrowing within the lateral compartment of the left knee. Moderate sized tricompartmental osteophytes within the left knee. No significant left knee effusion. IMPRESSION: 1. No fractures within the right or left knee. 2. Bilateral knee osteoarthritis, right greater than left, as described above. 3. Small right knee effusion. Electronically signed by: Tiago Hodge M.D. 05/03/2017 2:48 PM Dictated Date/Time: 05/03/2017 2:45 PM
== END | disposition home or self-care (01) ==
LOC: C.RAD 14:10
PROVIDERS: ATTEND Internal Medicine Geriatric Medicine
DX: M25.561 Pain in right knee (principal); M25.562 Pain in left knee; M17.0 Bilateral primary osteoarthritis of knee; M25.461 Effusion, right knee

== ENCOUNTER → 2017-05-10 | Outpatient (CLI) | payer OTHER, BC | END | disposition home or self-care (01) | LOC: C.LABSPEC 10:45 | PROVIDERS: ATTEND Urology | DX: R31.29 Other microscopic hematuria (principal) ==

== ENCOUNTER → 2017-06-17 | Outpatient (CLI) | payer OTHER, BC ==
[2017-06-17 12:24] LABS: BASO % 0.6 %; BASO ABS # 0.06 K/uL (0-0.2); EOS ABS # 2.15 K/uL (0-0.5); HEMATOCRIT 39.7 % (37-47); HEMOGLOBIN 13.2 g/dL (12.0-16.0); IG# 0.02 K/uL (0.00-0.02); LYMPH % 23.2 %; LYMPH ABS # 2.16 K/uL (1.2-3.4); MEAN CELL VOLUME 87.8 fL (80-100); MEAN CORPUSCULAR HEMOGLOBIN 29.2 pg (25-34); MEAN CORPUSCULAR HGB CONC 33.2 g/dl (32-36); MEAN PLATELET VOLUME 9.2 fL (7.4-10.4); MONO % 9.1 %; MONO ABS # 0.85 K/uL (0.11-0.59); NEUT % 43.9 %; NEUT ABS # 4.09 K/uL (1.4-6.5); PLATELET COUNT 298 K/uL (130-400); RED CELL DISTRIBUTION WIDTH CV 13.8 % (11.5-14.5); RED CELL DISTRIBUTION WIDTH SD 44.4 fL (36.4-46.3); WHITE BLOOD COUNT 9.33 K/uL (4.8-10.8)
== END | disposition home or self-care (01) ==
LOC: C.LAB 10:57
PROVIDERS: ATTEND Physician Assistant Medical
DX: R19.7 Diarrhea, unspecified (principal); G25.81 Restless legs syndrome; R53.83 Other fatigue; D72.829 Elevated white blood cell count, unspecified; R74.8 Abnormal levels of other serum enzymes

== ENCOUNTER → 2017-06-18 | Outpatient (CLI) | payer OTHER, BC | END | disposition home or self-care (01) | LOC: C.LAB 10:17 | PROVIDERS: ATTEND Psychiatry & Neurology Neurology | DX: R19.7 Diarrhea, unspecified (principal); D72.829 Elevated white blood cell count, unspecified ==

== ENCOUNTER → 2017-06-21 | Outpatient (CLI) | payer OTHER, BC ==
--- NOTE | 2017-06-21 09:22 | DIAGNOSTIC IMAGING REPORT ---
ABDOMINAL ULTRASOUND, RIGHT UPPER QUADRANT HISTORY: R10.13 Abdominal pain, epigastric [id number]. COMPARISON: Abdomen and pelvis CT 12/18/2012. FINDINGS: Pancreas: The pancreas demonstrates a normal echotexture. Liver: A 2.1 cm cyst within the left hepatic lobe. The main portal vein is patent. Gallbladder: No gallbladder wall thickening. No gallstones. CBD: 2 mm. Right kidney: No hydronephrosis. IMPRESSION: 1. Normal gallbladder. No gallstones. 2. A 2.1 cm left hepatic lobe cyst. Electronically signed by: Tiago Hodge M.D. 06/21/2017 9:21 AM Dictated Date/Time: 06/21/2017 9:19 AM
== END | disposition home or self-care (01) ==
LOC: C.ULTR 08:06
PROVIDERS: ATTEND Physician Assistant Medical
DX: R10.13 Epigastric pain (principal); K76.89 Other specified diseases of liver

== ENCOUNTER → 2017-07-04 | Outpatient (CLI) | payer OTHER, BC ==
[2017-07-04 13:20] LABS: HEMATOCRIT 39.8 % (37-47); HEMOGLOBIN 13.1 g/dL (12.0-16.0); MEAN CELL VOLUME 88.6 fL (80-100); MEAN CORPUSCULAR HEMOGLOBIN 29.2 pg (25-34); MEAN CORPUSCULAR HGB CONC 32.9 g/dl (32-36); MEAN PLATELET VOLUME 10.2 fL (7.4-10.4); PLATELET COUNT 327 K/uL (130-400); RED CELL DISTRIBUTION WIDTH CV 14.2 % (11.5-14.5); RED CELL DISTRIBUTION WIDTH SD 45.8 fL (36.4-46.3); WHITE BLOOD COUNT 9.24 K/uL (4.8-10.8)
[2017-07-04 13:21] LABS: BASO % 0.9 %; BASO ABS # 0.08 K/uL (0-0.2); EOS % 8.9 %; EOS ABS # 0.82 K/uL (0-0.5); IG# 0.01 K/uL (0.00-0.02); LYMPH % 24.2 %; LYMPH ABS # 2.24 K/uL (1.2-3.4); MONO % 8.5 %; MONO ABS # 0.79 K/uL (0.11-0.59); NEUT % 57.4 %
== END ==
LOC: C.LAB 10:52
PROVIDERS: ATTEND Physician Assistant Medical
DX: D72.829 Elevated white blood cell count, unspecified (principal)

== ENCOUNTER → 2017-07-15 | Outpatient (CLI) | payer OTHER, BC ==
--- NOTE | 2017-07-15 14:43 | DIAGNOSTIC IMAGING REPORT ---
BONE SCAN WHOLE BODY CLINICAL HISTORY: 67 years-old Female presenting with Elevated serum alkaline phosphatase level. TECHNIQUE: Planar anterior and posterior imaging of the whole body was performed 3 hours following the intravenous administration of 25.2 mCi Tc-99m MDP. COMPARISON: Plain radiographs of the bilateral knees from 05/03/[address] of abdomen pelvis from 02/17/2017.. FINDINGS: Radiotracer uptake noted bilaterally at the knee joints, right greater than left. This is most pronounced laterally in the left knee and medial and patellofemoral compartments in the right knee. This correlates to the sites of osteophytic changes on radiograph. Bilateral uptake in the midfoot-forefoot articulations. No prior imaging comparisons of the feet are available. Focal radiotracer uptake along the right lateral aspect of the mid cervical spine with lesser uptake focally at a level below on the left. Focal uptake also noted eccentrically on the right at the L5-S1 level. More diffuse degenerative changes evident in the lower lumbar spine on prior CT. Otherwise expected distribution of radiotracer throughout the axial and appendicular skeleton and genitourinary tract. IMPRESSION: 1. Bilateral radiotracer uptake in the knees consistent with osteoarthritic changes as detailed above. 2. Radiotracer uptake in the midfoot-forefoot articulations also suggests degenerative change. 3. Multifocal uptake in the cervical and lower lumbar spine. This is nonspecific. In the absence of a history of malignancy, this could represent degenerative change. Mild degenerative change was apparent in the lumbar spine on abdomen and pelvis CT from 2016. Correlation with anatomic imaging in the cervical spine may be helpful if there is clinical concern. Electronically signed by: Ashok Castillo M.D. 07/15/2017 2:41 PM Dictated Date/Time: 07/15/2017 2:35 PM
== END | disposition home or self-care (01) ==
LOC: C.NUCL 11:04
PROVIDERS: ATTEND Physician Assistant Medical
DX: R74.8 Abnormal levels of other serum enzymes (principal)

== ENCOUNTER → 2017-07-20 | Outpatient (CLI) | payer OTHER, BC ==
--- NOTE | 2017-07-20 16:27 | DIAGNOSTIC IMAGING REPORT ---
C-SPINE ROUTINE 4 OR 5 VIEWS CLINICAL HISTORY: 67 years-old Female presenting with CHRONIC OSTEOARTHRITIS. TECHNIQUE: Lateral, bilateral oblique, frontal, open-mouth odontoid, and submental views of the cervical spine were obtained. COMPARISON: None. FINDINGS: Normal cervical lordosis. Vertebral bodies maintain normal height and alignment. Intervertebral disc heights are essentially preserved with minimal height loss at C4-5. Mild multilevel degenerative changes with small disc complexes, uncovertebral hypertrophy, and facet arthropathy. No radiographic evidence of fracture or subluxation. The C7 vertebral body is incompletely visualized limiting evaluation in this region. Varying degrees of osseous neural foraminal narrowing at every level, right greater than left. Normal predental interval. The lateral masses of C1 articulate normally with CT though degenerative changes evident. Lung apices clear. IMPRESSION: 1. Multilevel degenerative changes with right greater than left osseous neural foraminal narrowing to varying degrees at every level. This is even better quantified with cross-sectional imaging. 2. No radiographic evidence of acute osseous injury. Electronically signed by: Ashok Castillo M.D. 07/20/2017 4:26 PM Dictated Date/Time: 07/20/2017 4:23 PM
== END | disposition home or self-care (01) ==
LOC: C.RAD 15:28
PROVIDERS: ATTEND Physician Assistant Medical
DX: M19.90 Unspecified osteoarthritis, unspecified site (principal); M50.30 Other cervical disc degeneration, unspecified cervical region; M48.02 Spinal stenosis, cervical region

== ENCOUNTER → 2017-10-05 | Outpatient (CLI) | payer OTHER, BC ==
[~2017-10-05] MED LIST changes: -CLON1TAB3 PO; +CLON1TAB5 PO
--- NOTE | 2017-10-05 13:54 | DIAGNOSTIC IMAGING REPORT ---
CHEST 2 VIEWS ROUTINE HISTORY: 67 years-old Female R05 [id number] acute cough COMPARISON: Chest radiographs 05/25/2014 TECHNIQUE: PA and lateral views of the chest FINDINGS: Cardiac silhouette is within normal limits in size. Mild chronic bilateral interstitial coarsening without pneumothorax, pleural effusion or overt pulmonary edema. Lungs appear mildly hyperinflated. Degenerative changes of the shoulders and spine. IMPRESSION: No acute process. The above report was generated using voice recognition software. It may contain grammatical, syntax or spelling errors. Electronically signed by: Arvin Woodall M.D. 10/05/2017 1:53 PM Dictated Date/Time: 10/05/2017 1:50 PM
== END | disposition home or self-care (01) ==
LOC: C.RAD 13:27
PROVIDERS: ATTEND Physician Assistant Medical
DX: R05 Cough (principal)

== ENCOUNTER 2018-07-21 10:39 | Inpatient (IN) ==
--- NOTE | 2018-07-05 14:08 | PAT Medication Instructions ---
Medication Instructions Date of Service July 05, 2018 Home Medications C,E,zinc,copper [id number] 1 cap PO QAM apple cider vinegar 500 mg PO DAILY atorvastatin 10 mg PO QPM calcium carbonate [Tums] 500 mg PO QAM cholecalciferol (vitamin D3) 2,000 unit PO QAM clonazepam 1 mg PO HS diclofenac sodium [Voltaren] 2 g TOPICAL QID PRN fluocinonide 1 applic TOPICAL UD PRN fluticasone propionate 1 spray INTRANASAL DAILY PRN losartan-hydrochlorothiazide 1 tab PO QAM metformin 500 mg PO BID omeprazole 40 mg PO QAM venlafaxine 37.5 mg PO QPM venlafaxine 75 mg PO QPM STOP taking 2 weeks before surgery (or as soon as possible if surgery is within 2 weeks) C,E,zinc,copper [id number] 1 cap PO QAM apple cider vinegar 500 mg PO DAILY STOP taking 24 hours before surgery diclofenac sodium [Voltaren] 2 g TOPICAL QID PRN fluocinonide 1 applic TOPICAL UD PRN DO NOT take the morning of surgery calcium carbonate [Tums] 500 mg PO QAM cholecalciferol (vitamin D3) 2,000 unit PO QAM losartan-hydrochlorothiazide 1 tab PO QAM metformin 500 mg PO BID fluticasone propionate 1 spray INTRANASAL DAILY PRN Take morning of surgery With a small sip of water, OTHERWISE NOTHING TO EAT OR DRINK AFTER MIDNIGHT: omeprazole 40 mg PO QAM Take evening before surgery atorvastatin 10 mg PO QPM clonazepam 1 mg PO HS fluticasone propionate 1 spray INTRANASAL DAILY PRN (if needed) metformin 500 mg PO BID venlafaxine 37.5 mg PO QPM venlafaxine 75 mg PO QPM Other Notes If you have any questions please call us at [phone] or [phone] or [phone] or [phone]
--- NOTE | 2018-07-05 14:29 | Anesthesiology Consultation ---
Date of Service July 05, 2018 Assessment & Plan (1) Encounter for pre-operative examination: Chart Review Chart Review: Patient seen in Pre Admission Testing Consults Requested medical (Sheila Acosta (07/10 @ 10:30)) Patient was seen by PCPs office on 07/10/18. Per note from the visit, "Preoperative lab work, chest x-ray, EKG, and urinalysis reviewed. Using the revised cardiac risk index, patient is estimated at low risk of adverse outcome with noncardiac surgery." Teaching & Discussion Pre-Anesthesia Teaching/Discussion Notes: Instructed NPO after midnight before surgery, except medications with 15 cc of water. Medication instructions provided according to the PAT guidelines. History Surgery Operation Date: 07/21/18 13:30 Proposed Procedures p Right Total Knee Arthroplasty - Ashok Ross MD Height/Weight Height: 5 ft 7 in Weight: 120.2 kg Allergies Allergy/AdvReac Type Severity Reaction Status Date / Time cocoa butter Allergy Severe Rash Verified 07/05/18 13:39 [From Preparation H] glycerin [From Preparation H] Allergy Severe Rash Verified 07/05/18 13:39 mineral oil Allergy Severe Rash Verified 07/05/18 13:39 [From Preparation H] petrolatum,white Allergy Severe Rash Verified 07/05/18 13:39 [From Preparation H] phenylephrine Allergy Severe Rash Verified 07/05/18 13:39 [From Preparation H] Bactrim Allergy Intermediate BROKE OUT Verified 04/05/16 14:42 IN HIVES sulfamethoxazole Allergy Intermediate BROKE OUT Verified 07/05/18 13:38 IN HIVES trimethoprim Allergy Intermediate BROKE OUT Verified 07/05/18 13:38 IN HIVES raloxifene Allergy Unknown UNKNOWN Verified 04/05/16 14:42 shark liver oil Allergy Unknown REDNESS, Verified 04/05/16 14:43 ITCHING, SWELLING Yeast Allergy Unknown REDNESS, Verified 04/05/16 14:43 ITCHING, SWELLING mivacurium AdvReac Mild VOMIT Verified 04/05/16 14:42 amoxicillin AdvReac Unknown GAVE Verified 04/05/16 14:42 PATIENT C-DIFF azithromycin [From Zithromax] AdvReac Unknown nausea/vomi Verified 07/05/18 13:40 ting benzonatate AdvReac Unknown Vomiting Verified 07/05/18 13:38 [From Tessalon Perles] lisinopril AdvReac Unknown dry cough Verified 07/05/18 13:38 ropinirole AdvReac Unknown unable to Verified 07/05/18 13:39 tolerate Liver Allergy Unknown REDNESS, Uncoded 04/05/16 14:43 ITCHING, SWELLING Phenylmercuric Nitrate Allergy Unknown REDNESS, Uncoded 04/05/16 14:43 ITCHING, SWELLING Medications Home Medications Medication Instructions Recorded Confirmed Last Taken C,E,zinc,copper [id number] 1 cap PO QAM 07/05/18 07/05/18 Unknown [Ocuvite Adult 50 Plus] apple cider vinegar 500 mg PO DAILY 07/05/18 07/05/18 Unknown atorvastatin 10 mg PO QPM 07/05/18 07/05/18 Unknown calcium carbonate [Tums] 500 mg PO QAM 07/05/18 07/05/18 Unknown cholecalciferol (vitamin D3) 2,000 unit PO QAM 07/05/18 07/05/18 Unknown [Vitamin D3] clonazepam 1 mg PO HS 07/05/18 07/05/18 Unknown diclofenac sodium [Voltaren] 2 g TOPICAL QID PRN 07/05/18 07/05/18 Unknown fluocinonide 1 applic TOPICAL UD PRN 07/05/18 07/05/18 Unknown fluticasone propionate 1 spray INTRANASAL DAILY PRN 07/05/18 07/05/18 Unknown losartan-hydrochlorothiazide 1 tab PO QAM 07/05/18 07/05/18 Unknown metformin 500 mg PO BID 07/05/18 07/05/18 Unknown omeprazole 40 mg PO QAM 07/05/18 07/05/18 Unknown venlafaxine 37.5 mg PO QPM 07/05/18 07/05/18 Unknown venlafaxine 75 mg PO QPM 07/05/18 07/05/18 Unknown Past Medical History Medical History Depression Osteoarthritis Diabetes TYPE 2, NIDDM Crohns disease HTN (hypertension) GENESIS (obstructive sleep apnea) CPAP Pneumonia (Resolved) ~6 YEARS AGO Chronic back pain Gout H/O Patella fracture RIGHT PATELLA (JULY 2014) Restless leg syndrome Past Family History Family History Daughter No problems noted. Brother FHx: myocardial infarction, Onset Age: 64 Stroke, Onset Age: 64 Sister FHx: breast cancer Mother FHx: breast cancer Past Surgical History Surgical History History of carpal tunnel release BILATERAL History of cataract surgery BILATERAL History of colonoscopy History of esophagogastroduodenoscopy (EGD) History of tonsillectomy S/P foot surgery, right REPAIR OF MYKEL'S FRACTURE Past Anesthesia History No Hx of Anesthesia Complications and No Family Hx of Anesthesia Complications History of PONV No Motion Sickness Screening History of Motion Sickness: Yes Social History Smoking Status: Never smoker Do You Dip or Chew Tobacco: No Hx Alcohol Use: No Hx Substance Use: No substance use type: does not use Exercise / Class Metabolic Activity III < 4 Walking/Shop/Light housework (Much less due to knee pain. Avoiding stairs. Does get some SOB with activity since gaining weight. Denies CP.) Review of Systems Patient denies chest pain, shortness of breath, cough, wheezing, palpitations. +LEYVA (since increased knee pain and weight gain) +Joint Pain Pain (Knees, Back, Neck, Fingers, Feet, etc) +Acid Reflux (Controlled with medications) Physical Exam Vital Signs BP: 129/75 P: 80 R: 18 T: 97.4 SPO2: 98% on RA Constitutional + morbidly obese ENMT Mouth: + small oral opening Mallampati Class: III Neck normal visual inspection and trachea midline; neck extension not limited Respiratory normal respiratory effort Auscultation: lungs clear to auscultation bilaterally Cardiovascular Rate/Rhythm: regular rate and regular rhythm Heart Sounds: no murmur Vessels: no carotid bruit Neurologic moves all extremities Psychiatric Orientation: alert and oriented x 3 Testing Electrocardiogram Date: 07/05/18 Findings: + NSR @ (72) and + RBBB When compared with ECG of 04/23/14, QRS duration has increased and T wave inversion is no longer evident in lateral leads. Chest X-Ray Date: 07/05/18 Findings: + NAD FINDINGS: Mild stable cardiomegaly. Slight bronchovascular prominence considered chronic. No focal infiltrate. IMPRESSION: Chronic change. No acute process. Laboratory Results 07/05/18 14:44 07/05/18 14:44 Blood Type O Negative 07/05/18 14:44 Antibody Screen NEGATIVE 07/05/18 14:44 PT 10.0 Seconds (9.0-12.0) 07/05/18 14:44 INR 1.0 (0.9-1.1) 07/05/18 14:44 APTT 27.3 Seconds (21.0-31.0) 07/05/18 14:44 Hemoglobin A1c 6.4 % (4.5-5.6) H 07/05/18 14:44 Urine Color Yellow 07/05/18 Unknown Urine Appearance Clear (Clear) 07/05/18 Unknown Urine pH 7.0 (4.5-7.5) 07/05/18 Unknown Ur Specific [place] 1.017 (1.000-1.030) 07/05/18 Unknown Urine Protein Negative (Negative) 07/05/18 Unknown Urine Glucose (UA) Negative (Negative) 07/05/18 Unknown Urine Ketones Negative (Negative) 07/05/18 Unknown Urine Nitrite Negative (Negative) 07/05/18 Unknown Ur Leukocyte Esterase Negative (Negative) 07/05/18 Unknown
--- NOTE | 2018-07-05 15:18 | XRay Report ---
XR chest 2V routine CLINICAL HISTORY: PREOP COMPARISON STUDY: 04/23/2014 FINDINGS: Mild stable cardiomegaly. Slight bronchovascular prominence considered chronic. No focal in filtrate. IMPRESSION: Chronic change. No acute process. The above report was generated using voice recognition software. It may contain grammatical, syntax or spelling errors. Electronically signed by: Ritchie Johnson M.D. 07/05/2018 3:17 PM
[2018-07-05 15:43] LABS: Basophils # (auto) 0.06 K/uL (0-0.2); Basophils % (auto) 0.7 %; Eosinophils # (auto) 0.49 K/uL (0-0.5); Eosinophils % (auto) 5.9 %; Hematocrit (blood only) 40.5 % (37-47); Hemoglobin 13.5 g/dL (12.0-16.0); Immature Granulocytes # (auto) 0.02 K/uL (0.00-0.02); Immature Granulocytes % (auto) 0.2 %; Lymphocytes # (auto) 2.28 K/uL (1.2-3.4); Lymphocytes % (auto) 27.3 %; Mean Corpuscular Hgb Conc 33.3 g/dL (32-36); Mean Corpuscular Volume 89.8 fL (80-100); Mean Platelet Volume 9.4 fL (7.4-10.4); Monocytes # (auto) 0.82 K/uL (0.11-0.59); Monocytes % (auto) 9.8 %; Neutrophils # (auto) 4.67 K/uL (1.4-6.5); Neutrophils % (auto) 56.1 %; Platelet Count 346 K/uL (130-400); RDW Coefficient of Variation 14.6 % (11.5-14.5); RDW Standard Deviation 48.1 fL (36.4-46.3); Red Blood Count 4.51 M/uL (4.2-5.4); White Blood Count 8.34 K/uL (4.8-10.8)
[2018-07-05 15:43] LABS: Appearance Urine Clear (Clear); Bilirubin Urine Negative (Negative); Blood Urine Negative (Negative); Color Urine Yellow; Glucose Urine UA Negative (Negative); Ketones Urine Negative (Negative); Leukocyte Esterase Urine Negative (Negative); Nitrite Urine Negative (Negative); Protein Urine Negative (Negative); Specific Gravity Urine 1.017 (1.000-1.030); Urobilinogen Urine Negative (Negative)
[2018-07-05 15:53] LABS: Partial Thromboplastin Time 27.3 Seconds (21.0-31.0)
[2018-07-05 16:08] LABS: Albumin Level 3.7 gm/dl (3.4-5.0); BUN Creatinine Ratio 16.4 (10-20); Calcium 9.2 mg/dl (8.5-10.1); Creatinine Clr Calc Pharmacy 84.9 ml/min; Est GFR (African American) 82.2; Est GFR (Non-African American) 70.9; Potassium 3.9 mmol/L (3.5-5.1)
[2018-07-06 05:49] LABS: Estimated Average Glucose 137 mg/dl; Hemoglobin A1C 6.4 % (4.5-5.6)
--- NOTE | 2018-07-12 14:20 | History & Physical Report ---
Date of Service July 12, 2018 Assessment & Plan (1) Primary osteoarthritis of right knee: Patient has chronic right knee pain. She has tried and failed multiple conservative measures including cortisone injections and anti-inflammatory medications. Treatment options were discussed and she would like to proceed with surgical intervention. Risks, benefits and alternatives to surgery including but not limited to infection, DVT, pain, stiffness, need for revision surgery, damage to blood vessels, damage to nerves, PE, , were discussed with the patient and they wish to proceed. Plan will be for right total knee arthroplasty. She will plan on going home with home therapy upon discharge from the hospital. She will be on Aspirin 81mg BID x 30 days post operatively for DVT prophylaxis. All questions were answered. She will follow up post operatively. History of Present Illness Chief Complaint: Right knee pain Primary Care Provider: MATA Timmons Patient is a 68 year old female with PMHx significant for HTN, DMII, GENESIS, and GERD who presents with longstanding right knee pain. She was previously a patient of Dr. Acevedo. She has failed conservative measures including corticosteroid injections and anti-inflammatory medications. She would like to proceed with right knee replacement with Dr. Ross. Patient denies headaches, sweats, fevers, chills, double vision, blurred vision, cough, sore throat, dysphagia, chest pain, sob, wheezing, n/v/d/c, numbness, tingling, fatigue, urinary symptoms, mood disorders. ROS positive for right knee pain and stiffness. Allergies Allergy/AdvReac Type Severity Reaction Status Date / Time cocoa butter Allergy Severe Rash Verified 07/05/18 13:39 [From Preparation H] glycerin [From Preparation H] Allergy Severe Rash Verified 07/05/18 13:39 mineral oil Allergy Severe Rash Verified 07/05/18 13:39 [From Preparation H] petrolatum,white Allergy Severe Rash Verified 07/05/18 13:39 [From Preparation H] phenylephrine Allergy Severe Rash Verified 07/05/18 13:39 [From Preparation H] Bactrim Allergy Intermediate BROKE OUT Verified 04/05/16 14:42 IN HIVES sulfamethoxazole Allergy Intermediate BROKE OUT Verified 07/05/18 13:38 IN HIVES trimethoprim Allergy Intermediate BROKE OUT Verified 07/05/18 13:38 IN HIVES raloxifene Allergy Unknown UNKNOWN Verified 04/05/16 14:42 shark liver oil Allergy Unknown REDNESS, Verified 04/05/16 14:43 ITCHING, SWELLING Yeast Allergy Unknown REDNESS, Verified 04/05/16 14:43 ITCHING, SWELLING mivacurium AdvReac Mild VOMIT Verified 04/05/16 14:42 amoxicillin AdvReac Unknown GAVE Verified 04/05/16 14:42 PATIENT C-DIFF azithromycin [From Zithromax] AdvReac Unknown nausea/vomi Verified 07/05/18 13:40 ting benzonatate AdvReac Unknown Vomiting Verified 07/05/18 13:38 [From Tessalon Perles] lisinopril AdvReac Unknown dry cough Verified 07/05/18 13:38 ropinirole AdvReac Unknown unable to Verified 07/05/18 13:39 tolerate Liver Allergy Unknown REDNESS, Uncoded 04/05/16 14:43 ITCHING, SWELLING Phenylmercuric Nitrate Allergy Unknown REDNESS, Uncoded 04/05/16 14:43 ITCHING, SWELLING Home Medications Home Medications Medication Instructions Recorded Confirmed Type C,E,zinc,copper [id number] 1 cap PO QAM 07/05/18 07/05/18 History [Ocuvite Adult 50 Plus] apple cider vinegar 500 mg PO DAILY 07/05/18 07/05/18 History atorvastatin 10 mg PO QPM 07/05/18 07/05/18 History calcium carbonate [Tums] 500 mg PO QAM 07/05/18 07/05/18 History cholecalciferol (vitamin D3) 2,000 unit PO QAM 07/05/18 07/05/18 History [Vitamin D3] clonazepam 1 mg PO HS 07/05/18 07/05/18 History diclofenac sodium [Voltaren] 2 g TOPICAL QID PRN 07/05/18 07/05/18 History fluocinonide 1 applic TOPICAL UD PRN 07/05/18 07/05/18 History fluticasone propionate 1 spray INTRANASAL DAILY PRN 07/05/18 07/05/18 History losartan-hydrochlorothiazide 1 tab PO QAM 07/05/18 07/05/18 History metformin 500 mg PO BID 07/05/18 07/05/18 History omeprazole 40 mg PO QAM 07/05/18 07/05/18 History venlafaxine 37.5 mg PO QPM 07/05/18 07/05/18 History venlafaxine 75 mg PO QPM 07/05/18 07/05/18 History Past Med/Surg History Medical History Depression Osteoarthritis Diabetes TYPE 2, NIDDM Crohns disease HTN (hypertension) GENESIS (obstructive sleep apnea) CPAP Pneumonia (Resolved) ~6 YEARS AGO Chronic back pain Gout H/O Patella fracture RIGHT PATELLA (JULY 2014) Restless leg syndrome Surgical History History of carpal tunnel release BILATERAL History of cataract surgery BILATERAL History of colonoscopy History of esophagogastroduodenoscopy (EGD) History of tonsillectomy S/P foot surgery, right REPAIR OF MYKEL'S FRACTURE Family History Daughter No problems noted. Brother FHx: myocardial infarction, Onset Age: 64 Stroke, Onset Age: 64 Sister FHx: breast cancer Mother FHx: breast cancer Social History Preferred Language: Croatian Communication Ability: Effective Final Inspector Required: No Beliefs That Will Affect Care: None Current Living Situation: Spouse Other Information That Helps Us Care for You: No Feels Safe at Home: Yes Safety Concerns: Feels Safe At This Time Smoking Status: Never smoker Do You Dip or Chew Tobacco: No Second Hand Exposure: No Tobacco Cessation Education Requested by Patient: No Hx Alcohol Use: No Hx Substance Use: No Review of Systems All systems reviewed & are unremarkable except as noted in HPI & below Physical Exam Constitutional: well developed and well nourished; no acute distress Eyes: PERRL, conjunctivae normal, anicteric sclerae ENMT: external ear and nose normal, oropharynx normal Neck: trachea midline, no thyromegaly Respiratory: normal respiratory effort, lungs clear to auscultation Cardiovascular: RRR, no murmur, no edema Musculoskeletal: Right knee: Tenderness to palpation medial joint line. ROM mildly decreased with crepitus on ROM. Stable to valgus and varus stress Skin: no rashes, warm and dry Neurologic: patellar DTR's 2+ bilat, sensation intact Psychiatric: A+Ox3, euthymic affect Results & Data Laboratory Results Lab Results 07/05/18 07/05/18 07/05/18 Range/Units 14:44 14:44 14:44 WBC 8.34 (4.8-10.8) K/uL RBC 4.51 (4.2-5.4) M/uL Hgb 13.5 (12.0-16.0) g/dL Hct 40.5 (37-47) % MCV 89.8 (80-100) fL MCH 29.9 (25-34) pg MCHC 33.3 (32-36) g/dL RDW Std Deviation 48.1 H (36.4-46.3) fL RDW Coeff of Antonino 14.6 H (11.5-14.5) % Plt Count 346 (130-400) K/uL MPV 9.4 (7.4-10.4) fL Immature Gran % (Auto) 0.2 % Neut % (Auto) 56.1 % Lymph % (Auto) 27.3 % [place] % (Auto) 9.8 % Eos % (Auto) 5.9 % Baso % (Auto) 0.7 % Immature Gran # (Auto) 0.02 (0.00-0.02) K/uL Neut # (Auto) 4.67 (1.4-6.5) K/uL Lymph # (Auto) 2.28 (1.2-3.4) K/uL [place] # (Auto) 0.82 H (0.11-0.59) K/uL Eos # (Auto) 0.49 (0-0.5) K/uL Baso # (Auto) 0.06 (0-0.2) K/uL PT 10.0 (9.0-12.0) Seconds INR 1.0 (0.9-1.1) APTT 27.3 (21.0-31.0) Seconds PTT Ratio 1.0 Sodium 142 (136-145) mmol/L Potassium 3.9 (3.5-5.1) mmol/L Chloride 106 (98-107) mmol/L Carbon Dioxide 31 (21-32) mmol/L Anion Gap 5.0 (3-11) BUN 14 (7-18) mg/dl Creatinine 0.84 (0.6-1.2) mg/dl Est Cr Clr Drug Dosing 84.9 ml/min Est GFR ( Amer) 82.2 Est GFR (Non-Af Amer) 70.9 BUN/Creatinine Ratio 16.4 (10-20) Glucose 95 (70-99) mg/dl Estimat Average Glucose mg/dl Hemoglobin A1c (4.5-5.6) % Calcium 9.2 (8.5-10.1) mg/dl Albumin 3.7 (3.4-5.0) gm/dl Urine Color Urine Appearance (Clear) Urine pH (4.5-7.5) Ur Specific [place] (1.000-1.030) Urine Protein (Negative) Urine Glucose (UA) (Negative) Urine Ketones (Negative) Urine Blood (Negative) Urine Nitrite (Negative) Urine Bilirubin (Negative) Urine Urobilinogen (Negative) Ur Leukocyte Esterase (Negative) Blood Type Antibody Screen 07/05/18 07/05/18 07/05/18 Range/Units 14:44 14:44 Unknown WBC (4.8-10.8) K/uL RBC (4.2-5.4) M/uL Hgb (12.0-16.0) g/dL Hct (37-47) % MCV (80-100) fL MCH (25-34) pg MCHC (32-36) g/dL RDW Std Deviation (36.4-46.3) fL RDW Coeff of Antonino (11.5-14.5) % Plt Count (130-400) K/uL MPV (7.4-10.4) fL Immature Gran % (Auto) % Neut % (Auto) % Lymph % (Auto) % [place] % (Auto) % Eos % (Auto) % Baso % (Auto) % Immature Gran # (Auto) (0.00-0.02) K/uL Neut # (Auto) (1.4-6.5) K/uL Lymph # (Auto) (1.2-3.4) K/uL [place] # (Auto) (0.11-0.59) K/uL Eos # (Auto) (0-0.5) K/uL Baso # (Auto) (0-0.2) K/uL PT (9.0-12.0) Seconds INR (0.9-1.1) APTT (21.0-31.0) Seconds PTT Ratio Sodium (136-145) mmol/L Potassium (3.5-5.1) mmol/L Chloride (98-107) mmol/L Carbon Dioxide (21-32) mmol/L Anion Gap (3-11) BUN (7-18) mg/dl Creatinine (0.6-1.2) mg/dl Est Cr Clr Drug Dosing ml/min Est GFR ( Amer) Est GFR (Non-Af Amer) BUN/Creatinine Ratio (10-20) Glucose (70-99) mg/dl Estimat Average Glucose 137 mg/dl Hemoglobin A1c 6.4 H (4.5-5.6) % Calcium (8.5-10.1) mg/dl Albumin (3.4-5.0) gm/dl Urine Color Yellow Urine Appearance Clear (Clear) Urine pH 7.0 (4.5-7.5) Ur Specific [place] 1.017 (1.000-1.030) Urine Protein Negative (Negative) Urine Glucose (UA) Negative (Negative) Urine Ketones Negative (Negative) Urine Blood Negative (Negative) Urine Nitrite Negative (Negative) Urine Bilirubin Negative (Negative) Urine Urobilinogen Negative (Negative) Ur Leukocyte Esterase Negative (Negative) Blood Type O Negative Antibody Screen NEGATIVE Diagnostic Findings Right knee pain: [id number] medial compartment and lateral patellofemoral joint. Periarticular osteophyte formation and subchondral sclerosis noted.
[~2018-07-21 10:39] MED LIST changes: +ACETAMINOPHEN 500 MG TAB PO SCH; -ATOR-14 PO; +BUPIVACAINE 0.5 % 5 MG/1 ML PF 10ML VIAL ONE; -CALC500C3 PO; -CLON1TAB5 PO; +CeleBREX 200 MG CAP PO SCH; +FAMOTIDINE 20 MG TAB PO SCH; +GABAPENTIN 300 MG PO SCH; -GLC/500 PO; -LOSA100T2 PO; +LR 500ML BOLUS, THEN 15ML/HR IV SCH; -MULT-190 PO; -MULTTAB58 PO; -OMEP40CA PO; -ROPI0.5T15 PO; +ROPIVACAINE 0.5% 5 MG/ML 30 ML VIAL ONE; +ROPIVACAINE 0.5% HCL/PF 150 MG, BUPIVACAINE 0.5% MPF 30 ML, EPINEPHrine 30MG/30ML (OR U... INFIL SCH; +TRANEXAMIC ACID 1,000 MG **IV Intra-op IV SCH; +TRANEXAMIC ACID 1,000 MG **IV Pre-op IV SCH; -VENL75CA73 PO; +dexAMETHasone 4 MG TAB PO SCH
--- OUTSIDE RECORDS SUMMARY | 2018-07-21 10:43 | External Medical Summary | Continuity of Care Document ---
:1950 Author Name Jarett Lozano, Provider Address Unavailable Unavailable , Care Team Providers Name Role Phone Dave Lozano, Levar Unavailable [email or web address] Dave Lozano, Ashok Unavailable [email or web address] Sebastián SHARP, Janice [email or web address] Sheila Sims Unavailable [email or web address] Arias PA-C, Lacey Uribe Unavailable [email or web address] DAVE Lozano, LEVAR Unavailable Unavailable Unavailable Unavailable Unavailable Problems History of Intestinal infection due to Clostridium difficile (008.45) (A04.72) Status: Resolved PLMD (periodic limb movement disorder) (327.51) (G47.61) Restless legs syndrome (333.94) (G25.81) Crohn's disease (555.9) (K50.90) Depression with anxiety (300.4) (F41.8) Diabetic retinopathy, nonproliferative (250.50) (E11.3299) Esophageal dysmotility (530.5) (K22.4) Hematuria, microscopic (599.72) (R31.29) Multiple pulmonary nodules (793.19) (R91.8) Elevated serum alkaline phosphatase level (790.5) (R74.8) Patella-femoral syndrome (719.46) (M22.2X9) Right knee pain (719.46) (M25.561) Chronic osteoarthritis (715.90) (M19.90) Preop examination (V72.84) (Z01.818) Hypertension (401.9) (I10) Obstructive sleep apnea (327.23) (G47.33) Gastroesophageal reflux disease (530.81) (K21.9) Type 2 diabetes mellitus (250.00) (E11.9) Dyslipidemia (272.4) (E78.5) Vitamin D deficiency (268.9) (E55.9) BMI 40.0-44.9, adult (V85.41) (Z68.41) Allergies and Adverse Reactions Augmentin TABS (Allergy) EQL Medicated Wipes PADS (Allergy) Evista TABS (Allergy) Reaction: Other Lisinopril TABS (Allergy) Reaction: Coug h ropinirole (Allergy) Sulfa Drugs (Allergy) Reaction: Rash Tessalon Perles CAPS (Adverse Event) Kelly ction: Vomiting Zithromax TABS (Allergy) Reaction: Nause a, Vomiting Medications Tdap; INJECT 0.5 ML Intramuscular Blake Acosta Start : 09-Mar-2018 Quantity: 1 Refills: 0 Vitamin D3 2000 UNIT Oral Capsule; TAKE 1 CAPSULE Daily Blake Zuñiga Start: 02-Mar-2017 Refills: 0 100 Capsule Bottle Losartan Potassium-HCTZ 100-25 MG Oral Tablet; TAKE 1 TABLET EVERY DAY ARON Lowery Start: 23-Sep-2017 Quantity: 90 Refills: 3 clonazePAM 1 MG Oral Tablet; TAKE ONE TABLET BY MOUTH ONCE DAILY AT BEDTIME Blake Acosta Start: 29-Nov-2012 Quantity: 90 Refills: 1 Fluticasone Propionate 50 MCG/ACT Nasal Suspension; USE 2 SPRAYS IN EACH NOSTRIL ONCE DAILY Blake Acosta Start: 08-Jul-2015 Quantity: 1 Refills: 3 Voltaren 1 % Transdermal Gel; apply 4 grams up to four times daily. [place] Lowery Start: 30-Sep-2014 Quantity: 1 100 GM Tube (3 Tubes ) Refills: 2 Ocuvite Adult 50+ Oral Capsule; TAKE 1 CAPSULE DAILY. Start: 25-Jun-2014 Refills: 0 Atorvastatin Calcium 10 MG Oral Tablet; TAKE 1 TABLET EVERY DAY Blake Acosta Start: 18-Apr-2017 Quantity: 90 Refills: 3 metFORMIN HCl - 500 MG Oral Tablet; TAKE 1 TABLET TWIC E A DAY WITH MEALS Blake Acosta Start: 31-Jan-2012 Quantity: 180 Refills: 3 Tums 500 MG Oral Tablet Chewable; Take 1 tablet daily Refills: 0 Venlafaxine HCl ER 75 MG Oral Capsule Ex tended Release 24 Hour; TAKE 1 CAPSULE EVERY DAY IN ADDITION TO A 37.5MG TABLET ARON Lowery Start: Quantity: 90 Refills: 3 Omeprazole 40 MG Oral Capsule Delayed Re lease; TAKE 1 CAPSULE EVERY MORNING BEFORE A MEAL ARON Arias Start: 17-Jul-2018 Quantity: 90 Refills: 3 Fluocinonide 0.05 % External Ointment; A PPLY SPARINGLY TO AFFECTED AREA(S) TWICE DAILY ARON Lowery Start: 10-Aug-2017 Quantity: 1 30 GM Tube Refills: 1 Venlafaxine HCl - 37.5 MG Oral Tablet; T ASTRID 1 CAPSULE EVERY DAY IN ADDITION TO A 75MG TABLET ARON Lowery Start: 10-Aug-2017 Quantity: 90 Refills: 2 Procedures Lipid Profile - Fasting Date: 10-Jul-2018 Comp Metabolic Panel Date: 10-Jul-2018 Vitamin D, 25-Hydroxy Date: 10-Jul-2018 History of Tubal Ligation Status: Comple robert History of Colonoscopy (Fiberoptic) Stat us: Completed Immunizations Influenza On: 23-Nov-2010 0:00 Influenza On: 22-Nov-2011 16:44 Lot #: [id number], SANOFI PASTEUR Influenza On: 28-Nov-2012 Lot #: [id number], SANOFI PASTEUR Influenza On: 19-Dec-2013 Lot #: [id number], SANOFI PASTEUR Pneumococcal polysaccharide vaccine, 23 valent On: 26-Jun-19 15 11:44 Lot #: [id number], MERCK SHARP & DOHME Influenza On: 18-Dec-2014 11:02 Lot #: [id number], SANOFI PASTEUR Influenza On: 27-Dec-2015 Lot #: [id number], SANOFI PASTEUR Prevnar 13 Intramuscular Suspension On: 10-Mar-2016 17:03 Lot #: [id number], WYETH Fluzone High-Dose 0.5 ML Intramuscular Suspension Pref illed Syringe On: 27-Nov-2016 9:29 Lot #: [id number], SANOFI PASTEUR Fluzone High-Dose Intramuscular Suspension On: 07-Dec-2017 1 0:57 Lot #: [id number], SANOFI PASTEUR Tdap On: 11-Mar-2018 Family History Unknown Family Member Family history of Breast Cancer (V16.3) Status: Active Comments: Family History Father Family history of Reported Family History Of Heart Disease S tatus: Active Mother Family history of Arthritis (V17.7) Status: Active Family history of Obstructive Sleep Apnea Status: Active Social History - Smoking Status Never smoker Plan of Treatment Planned Encounters Appointment; Sheila Acosta CRNP Start: 04-Aug-2018 10:3 0 Request Planned Observations Planned Goals not documented Results X-ray Chest, PA and Laboratory: [facility] Diagnostic Lateral Routine (Pending) Imaging [address] [facility] [place] 05-Jul-2018 15:16 [facility] [phone] XRay Report Patient: SHAYNA ASHBY Admit Date: 9 MR#: [id number] Address1: [address] [place] [address] Acct ID:[id number] Address2: Date: 1950 [facility] Zip: [place] [address] Age: 68 Location: [facility] Sex: F Room/Bed: Att Phy: Ashok Ross M.D. Diagnosis: U nilateral Primary Osteoarthritis, Right Knee Maritza Phy: Sheila Acosta CRNP Service D ate: 07/05/18 Fam Phy: Interpreting Phy: Ritchie Johnson MD Admit Phy: Ordering Phy: Brenna Espinoza PA-C cc: XR chest 2V routine CLINICAL HISTORY: PREOP COMPARISON STUDY: 04/23/2014 FINDINGS: Mild stable cardiomegaly. Slight bronchovascular prominence considered chronic. No focal infiltrate. IMPRESSION: Chronic change. No acute process. The above report was generated using voice recognition software. It may contain grammatical, syntax or spelling errors. Electronically signed by: Ritchie Johnson M.D. 07/05/2018 3:17 PM Dictated: 07/05/18 1516 Transcribed: 07/05/18 1516 Urine rflx Micros+Cult if Laboratory: [facility] Laboratory Comme nts: Reason for Exam per Ind (Pending) [address] [facility] [place] [address] tel: 05-Jul-2018 0:00 Urine Color Yellow Urine Appearance Clear Range: Clear Urine Specific [place] 1.017 Range: 1.0 00-1.030 Urine Ph 7.0 Range: 4.5-7.5 Urine Protein(Dipstick) Range: Negative Negative Urine Glucose(Dipstick) Range: Negative Negative Urine Ketones Negative Range: Negative Urine Bilirubin Negative Range: Negativ e URINE BLOOD HGB Negative Range: Negativ e Urobilinogen Negative Range: Negative Nitrite Urine Negative Range: Negative Urine Leukocyte Esterase Range: Negativ e Negative CBC With DIFF (Pending) Laboratory: [facility] Laboratory [address] [facility] [address] tel: 05-Jul-2018 14:44 WBC 8.34 K/uL Range: 4.8-10.8 K/u L RBC 4.51 {M/uL} Range: 4.2-5.4 M/uL HEMOGLOBIN 13.5 g/dL Range: 12.0-16.0 g /dL HEMATOCRIT 40.5 % Range: 37-47 % MCV 89.8 fL Range: 80-100 fL MCH 29.9 pg Range: 25-34 pg MEAN CORPUSCULAR HGB CONC Range: 32-36 g/dL 33.3 g/dL RED CELL DISTRIBUTION WIDTH Range: 36.4 -46.3 fL SD 48.1 fL (above high threshold) RED CELL DISTRIBUTION WIDTH Range: 11.5 -14.5 % CV 14.6 % (above high threshold) PLATELET COUNT 346 K/uL Range: 130-400 K/uL MEAN PLATELET VOLUME 9.4 fL Range: 7.4- 10.4 fL NEUT % 56.1 % Range: % LYMPH % 27.3 % Range: % MONO % 9.8 % Range: % EOS % 5.9 % Range: % BASO % 0.7 % Range: % IG% 0.2 % Range: % Comments: IG paramet er reflects the combination of Metas, Myelos andPromyelocytes. Neutrophils (Auto) 4.67 K/uL Range: 1. 4-6.5 K/uL LYMPH ABS # 2.28 K/uL Range: 1.2-3.4 K/ uL MONO ABS # 0.82 K/uL (above Range: 0.11 -0.59 K/uL high threshold) EOS ABS # 0.49 K/uL Range: 0-0.5 K/uL BASO ABS # 0.06 K/uL Range: 0-0.2 K/uL IG# 0.02 K/uL Range: 0.00-0.02 K/ uL PT/INR (Pending) Laboratory: [facility] Laboratory [address] [place] [address] tel: 05-Jul-2018 14:44 Prothrombin Time 10.0 Range: 9.0-12.0 S econds {Seconds} INR 1.0 Range: 0.9-1.1 PTT (Pending) Laboratory: [facility] Laboratory [address] [place] [address] tel: 05-Jul-2018 14:44 PTT PATIENT 27.3 {Seconds} Range: 21.0- 31.0 Seconds Comments: Therapeuti c APTT range is 46.0 - 66.4 seconds PARTIAL THROMBOPLASTIN RATIO 1.0 Basic Metabolic Panel Laboratory: [facility] Laboratory (Pending) [address] [place] [address] tel: 05-Jul-2018 14:44 SODIUM 142 mmol/L Range: 136-145 mmol /L POTASSIUM 3.9 mmol/L Range: 3.5-5.1 mmo l/L CHLORIDE 106 mmol/L Range: 98-107 mmol/ L CARBON DIOXIDE 31 mmol/L Range: 21-32 m mol/L ANION GAP 5.0 Range: 3-11 BLOOD UREA NITROGEN 14 mg/dl Range: 7-1 8 mg/dl CREATININE 0.84 mg/dl Range: 0.6-1.2 mg /dl Estimated Creatinine Range: ml/min Clearance 84.9 ml/min Comments: Est. Cre atinine Clearance (Mod Cockcroft-Gault) for pharmacydosing purposes. Estimated GFR ( Comments: Units: ml/min per Kazakh) 82.2 1.73 meters squaredT he estimated GFR (CKD-E PI equation) has not be en validatedfor inpatie nt settings and may not be an accurate reflectiono f renal function in critical ly ill patients or those wi thrapidly changing renal funct ion (e.g. SILVINO). Estimated GFR (Non- Comments: Uni ts: ml/min per [place]) 70.9 1.73 meters squaredT he estimated GFR (CKD-E PI equation) has not be en validatedfor inpatie nt settings and may not be an accurate reflectiono f renal function in critical ly ill patients or those wi thrapidly changing renal funct ion (e.g. SILVINO). BUN/CREATININE RATIO 16.4 Range: 10-20 GLUCOSE 95 mg/dl Range: 70-99 mg/dl CALCIUM 9.2 mg/dl Range: 8.5-10.1 mg/ dl Albumin (Pending) Laboratory: [facility] Laboratory [address] [place] [address] tel: 05-Jul-2018 14:44 ALBUMIN 3.7 {gm/dl} Range: 3.4-5.0 gm/d l Hemoglobin A1C (Pending) Laboratory: [facility] Laboratory [address] [facility] [address] tel: 05-Jul-2018 14:44 Hemoglobin A1C 6.4 % (above Range: 4.5- 5.6 % high threshold) Comments: A1C Value Interpretation-------- < 5.7 Normal5.7 - 6.0 Abnormal - High Risk of Diabetes6.1 - 6.4 Abnormal - Very High Ri sk of Diabetes> or = 6.5 Consistent with DiabetesInitial values of greater than or equal to 6.5 should berepeated to confirm diagnosis of diabetes. Glucose criteriafor diagnosis of diabetes should be used in andanemic patients. Estimated Average Glucose Range: mg/dl mg/dl 137 mg/dl Vital Signs 10-Jul-2018 10:22 Systolic 133 mm[Hg] Comments: [place] [facility] [place] Position: Sitting Diastolic 84 mm[Hg] Comments: [place] [facility] [place] Position: Sitting Weight 263 lb BSA Calculated 2.27 m2 BMI Calculated 41.19 kg/m2 O2 Saturation 95 % Comments: Source: RA Heart Rate 93 /min Respiration 16 /min 22-Jun-2018 9:52 Systolic 115 mm[Hg] Diastolic 77 mm[Hg] O2 Saturation 92 % Heart Rate 86 /min Encounters Appointment; Sheila Acosta CRNP 10-Jul-2018 10:30 Encounter Diagnosis: Problem not documented Appointment; Lacey Arias PA-C 22-Jun-2018 9:30 Encounter Diagnosis: Problem not documented Appointment; Levar Acosta M.D. 09-Mar-2018 9:30 Encounter Diagnosis: Problem not documented Appointment; Janice Lowery PA-C 10-Jan-2018 13:30 Encounter Diagnosis: Problem not documented Appointment; Levar Acosta M.D. 07-Dec-2017 10:15 Encounter Diagnosis: Problem not documented Appointment; Janice Lowery PA-C 05-Oct-2017 9:45 Encounter Diagnosis: Problem not documented Appointment; Janice Lowery PA-C 10-Aug-2017 14:30 Encounter Diagnosis: Problem not documented Appointment; Janice Lowery PA-C 15-Jun-2017 13:45 Encounter Diagnosis: Problem not documented Appointment; Evangelist Regan M.D. 10-May-2017 14:20 Encounter Diagnosis: Problem not documented Appointment; Urology, Room 7 10-May-2017 14:10 Encounter Diagnosis: Problem not documented Appointment; Bill Holt DO 18-Apr-2017 14:00 Encounter Diagnosis: Problem not documented Appointment; Evangelist Regan M.D. 24-Mar-2017 14:20 Encounter Diagnosis: Problem not documented Appointment; Carter Tovar M.D. 10-Mar-2017 11:20 Encounter Diagnosis: Problem not documented Appointment; Levar Acosta M.D. 02-Mar-2017 13:15 Encounter Diagnosis: Problem not documented Appointment; Janice Lowery PA-C 10-Feb-2017 9:30 Encounter Diagnosis: Problem not documented Appointment; Janice Lowery PA-C 27-Jan-2017 14:00 Encounter Diagnosis: Problem not documented Appointment; Ana Sarah PA-C 24-Jan-2017 11:15 Encounter Diagnosis: Problem not documented Appointment; [facility]urse 27-Nov-2016 10:45 Encounter Diagnosis: Problem not documented Appointment; Ana Sarah PA-C 21-Sep-2016 14:45 Encounter Diagnosis: Problem not documented Appointment; Sheila Acosta CRNP 04-Aug-2018 10:30 Encounter Diagnosis: Problem not documented
--- NOTE | 2018-07-21 11:01 | History & Physical Bridge Note ---
Date of Service July 21, 2018 History & Physical Bridge Note I have examined the patient, reviewed the History & Physical and in the interval since the performance of the History & Physical I have noted the following changes of clinical significance: no changes noted
[2018-07-21] MEDS ORDERED: MIDAZOLAM HCL 1 MG/ML 2ML VIAL ONE ×2 (11:21→12:30)
[2018-07-21] MEDS ORDERED: PROPOFOL IV EMULSION 10 MG/ML 20 ML VIAL IV ONE ×2 (11:21→13:23)
[2018-07-21] MEDS ORDERED: LIDOCAINE HCL 2% 2 ML VIAL/AMP(20MG/ML) INFIL ONE (11:21)
[2018-07-21] MEDS ORDERED: ONDANSETRON INJ 2 MG/ML 2 ML VIAL IV PRN ×2 (11:37→17:03)
[2018-07-21] MEDS ORDERED: ATROPINE SULFATE 0.1 MG/ML 10ML SYR IV PRN (11:37)
[2018-07-21] MEDS ORDERED: BACITRACIN INJ 50,000 UNIT VIAL ONE (11:40)
[2018-07-21] MEDS ORDERED: POVIDONE-IODINE OP SOLN 30 ML BTL ONE (11:40)
[2018-07-21] MEDS ORDERED: ORTHO JOINT ANESTHETIC ONE (11:40)
[2018-07-21] MEDS: CLINDAMYCIN 600 MG/54 ML BAG IV SCH (12:04)
[2018-07-21] MEDS ORDERED: fentaNYL citrate 100 MCG/2 ML VIAL ONE (13:35)
--- NOTE | 2018-07-21 14:01 | Operative Report ---
Post Operative Report Pre & Post Diagnosis Operation Date: 07/21/18 12:45 Pre-Op Diagnosis: Primary osteoarthritis of right knee Post-Op Diagnosis: Primary osteoarthritis of right knee Procedure Operation Date: 07/21/18 12:45 Actual Procedures p Right Total Knee Arthroplasty(Right) - Ashok Ross MD Surgeon Ashok Ross MD Peeled Potato Inspector Johann Perez PA-C Estimated Blood Loss 10 Findings Consistent with Post-Op Diagnosis Specimens Bone and tissue Drains 2 Hemovac Anesthesia Type Spinal MAC Disposition Disposition: Recovery Room Indications The patient is a 68-year-old female long-standing arthritic change of the right knee. She is failed conservative measures with injection, anti-inflammatories, rehab. She is kktj-[id number] in the in the patellofemoral as well as lateral compartment and wishes to proceed with a total knee replacement Description of Procedure Risks benefits and alternatives of surgery including but not limited to infection, DVT, pain, stiffness, need for surgery, damage to blood vessels, damage to nerves or risks of anesthesia were discussed with the patient and they wished to proceed. The patient was identified and the laterality was confirmed and marked. They received a preoperative antibiotic as well as a spinal anesthetic and an abductor canal block. A well-padded tourniquet was applied and then the limb was prepped and draped in standard manner with ChloraPrep. The limb was exsanguinated and the tourniquet was inflated. I made a standard anterior incision. I sharply incised the skin then utilized Bovie electrocautery to achieve hemostasis. I made a medial parapatellar arthrotomy and mobilized the patella laterally. I then excised the anterior horns of the medial and lateral meniscus as well as the infrapatellar fat pad. I elevated a portion of the MCL off of the tibia. I then pinned into place a patient-matched distal femoral cutting guide and made my distal femoral resection. I then pinned into place the 5 in 1 femoral cutting guide. I made my anterior, posterior and chamfer cuts. I then excised the cruciates and the remaining portions of the menisci. I then pinned into place a patient- matched tibial cutting guide and made my tibial resection. I then pinned into place the tibial plate a utilizing alignment marvin to confirm rotation. I then cut for the post. Utilizing a lamina customer experience specialist and I then removed posterior osteophytes off the femur. I then placed a trial femur into position and cut for the trochlear component. I then sequentially trialed to size the polyethylene until there was good soft tissue balancing and range of motion. I then prepared the patella with a freehand cut utilizing sagittal saw. There was evidence of her prior patella fracture but this had healed well. I sized and drilled for the patella. There was good tracking to the patella no lateral release was needed. All the trial components were removed. The deep tissues were anesthetized with an ortho mix solution. Then with Simplex HV with gentamicin cement, I cemented my definitive components. Definitive components, [facility] 2: Femur 6 Tibia 4 Poly 9 Patella 35 oval A betadine soak was performed. A deep drain was placed. The arthrotomy was closed with interrupted #1 Vicryl suture subcutaneous tissue was closed with interrupted 2-0 Vicryl suture. The skin was closed with with gaurav. An Acticoat and Fátima dressing were placed. Sterile dressings were applied. All needle and sponge counts were correct at the end of the procedure patient was transferred to the PACU in stable condition without apparent complication. The PA-C was necessary for assistance with procedure for assistance in positioning, prepping, draping, retraction and closure. I attest to the content of the Intraoperative Record and any orders documented therein. Any exceptions are noted below.
[2018-07-21] MEDS ORDERED: METOPROLOL TARTRATE 1 MG/ML VIAL IV ONE (14:24)
--- NOTE | 2018-07-21 15:05 | Anesthesiology Progress Note ---
Date of Service July 21, 2018 Anesthesia Post Procedure Vital Signs Vital Signs: Temp Pulse Pulse Resp BP Pulse Ox 07/21/18 14:41 36.7 C 72 21 120/62 100 07/21/18 11:04 36.5 C 80 20 135/65 98 Pain Intensity Right Knee: Pain Intensity: 0 Transfer of Care Handoff Completed per policy Notes Mental Status: alert / awake / arousable Patient Amnestic to Procedure: Yes Nausea / Vomiting: adequately controlled Pain: adequately controlled Airway Patency, RR, SpO2: stable & adequate BP & HR: stable & adequate Hydration State: stable & adequate Neuraxial Anesthesia: was administered and sensory block is resolving Anesthetic Complications: no major complications apparent and Pt Satisfied with anesthetic care Notes: Patient had periods of tachycardia but appears to be sinus in nature. BP did not change during this episodes. In recovery, we did not witness this but I did express to the primary surgical team that she should be placed on telemetry for continued monitoring and they also stated they would consult internal medicine. ECG done in PACU largely unchanged when compared to preop ECG. Sinus rhythm with PAC's and her RBBB (which she had before). Patient awake, conversant and without complaints of pain/SOB/palpitations/dizziness/lightheadedness.
--- NOTE | 2018-07-21 15:19 | XRay Report ---
XR knee RT 2V routine CLINICAL HISTORY: Surgical Post Op COMPARISON: 05/03/2017 DISCUSSION: Anatomic alignment post total right knee arthroplasty. Good contact between prosthetic an d underlying bone. Expected soft tissue postoperative change. IMPRESSION: Anatomic alignment post total right knee arthroplasty. The above report was generated using voice recognition software. It may contain grammatical, syntax or spelling errors. Electronically signed by: Ritchie Johnson M.D. 07/21/2018 3:18 PM
[2018-07-21] MEDS ORDERED: FLUTICASONE PROPIONATE NA SPR 16 GM BTL PRN (17:03)
[2018-07-21] MEDS ORDERED: NALOXONE HCL 0.4 MG/1 ML VIAL/CARP IV PRN (17:03)
[2018-07-21] MEDS ORDERED: METOCLOPRAMIDE HCL INJ 5 MG/ML 2 ML VIAL IV PRN (17:03)
[2018-07-21] MEDS ORDERED: HYDROmorphone INJ 0.5 MG/0.5 ML SYR IV PRN (17:03)
[2018-07-21] MEDS ORDERED: MAGNESIUM HYDROXIDE SUSP 30 ML UDC PO PRN (17:03)
[2018-07-21] MEDS ORDERED: OXYCODONE HCL IR 5 MG TAB (IMMEDIATE RELEASE) PO PRN (17:03)
[2018-07-21] MEDS ORDERED: BISACODYL 10 MG SUPP PR PRN (17:03)
[2018-07-21] MEDS ORDERED: GLUCOSE 10 TABS/TUBE PO PRN (17:45)
[2018-07-21] MEDS ORDERED: CARBOHYDRATES FOR HYPOGLYCEMIA PO PRN (17:45)
[2018-07-21] MEDS ORDERED: GLUCAGON FOR INJ 1 MG VIAL SQ PRN (17:45)
[2018-07-21] MEDS ORDERED: DEXTROSE 50% 50 ML SYRINGE IV PRN (17:45)
[2018-07-21] MEDS ORDERED: GLUCOSE 40% GEL 15 GM TUBE PO PRN (17:45)
[2018-07-21] MEDS ORDERED: PHARMACY GLYCEMIC MGMT CONSULT PRN (17:52)
[2018-07-21] MEDS: SODIUM CHLORIDE 0.9% 1000ML 1,000 ML IV SCH (18:03)
[2018-07-21] MEDS: INSULIN ASPART 100 UNITS/ML 3 ML PEN SC SCH ×2 (18:07→20:38)
--- NOTE | 2018-07-21 18:32 | Hospitalist Consultation ---
Date of Consultation July 21, 2018 Assessment & Plan (1) Sinus tachycardia: The patient was noted to have transient tachycardia During her operative procedure on the right knee. She currently is asymptomatic in normal sinus rhythm. She has baseline right bundle branch block which is not new. She denies any chest pain or shortness of breath. Serial troponin series has been ordered. EKG will be repeated in the morning. Continue telemetry overnight Present on Admission?: No (2) Primary osteoarthritis of right knee: The patient is status post elective right total knee arthroplasty without complication Present on Admission?: Yes (3) Diabetes: ADA diet ordered. She takes metformin at home for diabetic control Thank you for the consultation. The hospitalist service will follow and manage any medical problems should they occur. Present on Admission?: Yes (4) HTN (hypertension): History of Present Illness Reason for Consultation: Intraoperative tachycardia Noted during elective right total knee arthroplasty.The patient is alert and oriented currently and asymptomatic. Postoperative EKG reveals normal Sinus rhythm with complete right bundle branch block which is not new. She denies chest discomfort or shortness of breath. No acute EKG changes. Serial troponins have been ordered with repeat EKG in the morning. She is currently on telemetry. Attending Physician: Ashok Ross MD Allergies Allergy/AdvReac Type Severity Reaction Status Date / Time cocoa butter Allergy Severe Rash Verified 07/21/18 10:56 [From Preparation H] glycerin [From Preparation H] Allergy Severe Rash Verified 07/21/18 10:56 mineral oil Allergy Severe Rash Verified 07/21/18 10:56 [From Preparation H] petrolatum,white Allergy Severe Rash Verified 07/21/18 10:56 [From Preparation H] phenylephrine Allergy Severe Rash Verified 07/21/18 10:56 [From Preparation H] Bactrim Allergy Intermediate BROKE OUT Verified 04/05/16 14:42 IN HIVES sulfamethoxazole Allergy Intermediate BROKE OUT Verified 07/21/18 10:56 IN HIVES trimethoprim Allergy Intermediate BROKE OUT Verified 07/21/18 10:56 IN HIVES raloxifene Allergy Unknown UNKNOWN Verified 07/21/18 10:56 shark liver oil Allergy Unknown REDNESS, Verified 07/21/18 10:56 ITCHING, SWELLING Yeast Allergy Unknown REDNESS, Verified 07/21/18 10:56 ITCHING, SWELLING mivacurium AdvReac Mild VOMIT Verified 07/21/18 10:56 amoxicillin AdvReac Unknown GAVE Verified 07/21/18 10:56 PATIENT C-DIFF azithromycin [From Zithromax] AdvReac Unknown nausea/vomi Verified 07/21/18 10:56 ting benzonatate AdvReac Unknown Vomiting Verified 07/21/18 10:56 [From Nu Gannon] lisinopril AdvReac Unknown dry cough Verified 07/21/18 10:56 ropinirole AdvReac Unknown unable to Verified 07/21/18 10:56 tolerate Liver Allergy Unknown REDNESS, Uncoded 07/21/18 10:56 ITCHING, SWELLING Phenylmercuric Nitrate Allergy Unknown REDNESS, Uncoded 07/21/18 10:56 ITCHING, SWELLING Home Medications Home Medications Medication Instructions Recorded Confirmed Type C,E,zinc,copper [id number] 1 cap PO QAM 07/05/18 07/21/18 History [Ocuvite Adult 50 Plus] apple cider vinegar 500 mg PO DAILY 07/05/18 07/21/18 History atorvastatin 10 mg PO QPM 07/05/18 07/21/18 History calcium carbonate [Tums] 500 mg PO QAM 07/05/18 07/21/18 History cholecalciferol (vitamin D3) 2,000 unit PO QAM 07/05/18 07/21/18 History [Vitamin D3] clonazepam 1 mg PO HS 07/05/18 07/21/18 History diclofenac sodium [Voltaren] 2 g TOPICAL QID PRN 07/05/18 07/21/18 History fluocinonide 1 applic TOPICAL UD PRN 07/05/18 07/21/18 History fluticasone propionate 1 spray INTRANASAL DAILY PRN 07/05/18 07/21/18 History losartan-hydrochlorothiazide 1 tab PO QAM 07/05/18 07/21/18 History metformin 500 mg PO BID 07/05/18 07/21/18 History omeprazole 40 mg PO QAM 07/05/18 07/21/18 History venlafaxine 37.5 mg PO QPM 07/05/18 07/21/18 History venlafaxine 75 mg PO QPM 07/05/18 07/21/18 History Patient History Medical History Depression Osteoarthritis Diabetes TYPE 2, NIDDM Crohns disease HTN (hypertension) GENESIS (obstructive sleep apnea) CPAP Pneumonia (Resolved) ~6 YEARS AGO Chronic back pain Gout H/O Patella fracture RIGHT PATELLA (JULY 2014) Restless leg syndrome Surgical History History of carpal tunnel release BILATERAL History of cataract surgery BILATERAL History of colonoscopy History of esophagogastroduodenoscopy (EGD) History of tonsillectomy S/P foot surgery, right REPAIR OF MYKEL'S FRACTURE Family History Daughter No problems noted. Brother FHx: myocardial infarction, Onset Age: 64 Stroke, Onset Age: 64 Sister FHx: breast cancer Mother FHx: breast cancer Social History Preferred Language: Swedish Communication Ability: Effective Bench Worker Binding Required: No Beliefs That Will Affect Care: None Current Living Situation: Spouse Other Information That Helps Us Care for You: No Feels Safe at Home: Yes Safety Concerns: Feels Safe At This Time Smoking Status: Unknown if ever smoked Hx Alcohol Use: No Hx Substance Use: No Review of Systems Review of Systems: All systems reviewed & are unremarkable except as noted in HPI & below Musculoskeletal: The right knee is bandaged and immobilized postoperatively Physical Exam Constitutional: WD/WN, vitals as above Eyes: PERRL, conjunctivae normal, anicteric sclerae ENMT: external ear and nose normal, oropharynx normal Neck: trachea midline, no thyromegaly Respiratory: normal respiratory effort, lungs clear to auscultation Cardiovascular: RRR, no murmur, no edema Split S1 Gastrointestinal (Abdomen): normal bowel sounds, soft, nontender, no hepatosplenomegaly Skin: no rashes, warm and dry Neurologic: CN's II-XI intact bilaterally; no focal motor deficits Results & Data Vital Signs (Past 12 Hours) Vital Signs Temp Pulse Pulse Resp BP Pulse Ox 07/21/18 17:33 36.5 C 79 18 126/72 95 07/21/18 17:12 36.7 C 77 18 120/72 98 07/21/18 17:03 36.7 C 77 18 120/72 98 07/21/18 16:15 78 21 126/69 94 07/21/18 16:00 96 H 18 136/72 93 07/21/18 15:50 94 H 18 134/71 94 07/21/18 15:40 83 18 121/64 92 07/21/18 15:30 36.3 C L 77 21 134/62 92 07/21/18 15:20 72 14 130/59 L 98 07/21/18 15:10 83 18 120/75 98 07/21/18 15:00 75 20 123/71 94 07/21/18 14:50 73 17 121/67 96 07/21/18 14:41 36.7 C 72 21 120/62 100 07/21/18 13:00 71 16 123/71 95 07/21/18 11:04 36.5 C 80 20 135/65 98 Laboratory Results 07/05/18 14:44 07/05/18 14:44
[2018-07-21] MEDS: CeleBREX 200 MG CAP PO SCH (20:16)
[2018-07-21] MEDS: CLINDAMYCIN 600 MG in DEXTROSE 5% 50 ML IV SCH (20:16)
[2018-07-21] MEDS: DOCUSATE SODIUM 100 MG CAP PO SCH (20:17)
[2018-07-21] MEDS: VENLAFAXINE HCL 37.5 MG TAB PO SCH (20:17)
[2018-07-21] MEDS: ASPIRIN 81 MG ECTAB PO SCH (20:17)
[2018-07-21] MEDS: VENLAFAXINE HCL XR 75 MG CAPXR PO SCH (20:18)
[2018-07-21] MEDS: ATORVASTATIN 10 MG TAB PO SCH (20:19)
[2018-07-21] MEDS: SENNA 8.6 MG TAB PO SCH (20:19)
[2018-07-21] MEDS: clonazePAM 1 MG TAB PO SCH (20:22)
[2018-07-21] MEDS ORDERED: INSULIN GLARGINE SOLOSTAR 100 UNITS/ML 3 ML PEN SC SCH (21:00)
[2018-07-21] MEDS: ACETAMINOPHEN 500 MG TAB PO SCH (22:08)
[2018-07-22] MEDS: CLINDAMYCIN 600 MG in DEXTROSE 5% 50 ML IV SCH (03:02)
[2018-07-22] MEDS: SODIUM CHLORIDE 0.9% 1000ML 1,000 ML IV SCH (03:02)
[2018-07-22 03:03] LABS: Hematocrit (blood only) 35.5 % (37-47); Hemoglobin 11.7 g/dL (12.0-16.0); Mean Corpuscular Volume 87.9 fL (80-100); Mean Platelet Volume 8.9 fL (7.4-10.4); Platelet Count 278 K/uL (130-400); RDW Coefficient of Variation 14.2 % (11.5-14.5); RDW Standard Deviation 45.5 fL (36.4-46.3); Red Blood Count 4.04 M/uL (4.2-5.4); White Blood Count 17.38 K/uL (4.8-10.8)
[2018-07-22 03:20] LABS: BUN Creatinine Ratio 19.1 (10-20); Calcium 8.2 mg/dl (8.5-10.1); Creatinine Clr Calc Pharmacy 65.2 ml/min; Est GFR (Non-African American) 51.8; Potassium 3.7 mmol/L (3.5-5.1)
[2018-07-22] MEDS: ACETAMINOPHEN 500 MG TAB PO SCH ×3 (05:06→22:04)
[2018-07-22] MEDS: DOCUSATE SODIUM 100 MG CAP PO SCH ×2 (08:14→20:49)
[2018-07-22] MEDS: PANTOprazole 40 MG TAB PO SCH (08:15)
[2018-07-22] MEDS: CHOLECALCIFEROL 1,000 UNITS TAB PO SCH (08:15)
[2018-07-22] MEDS: CeleBREX 200 MG CAP PO SCH ×2 (08:15→20:49)
[2018-07-22] MEDS: CEROVITE ADV FORMULA TAB PO SCH (08:15)
[2018-07-22] MEDS: CALCIUM CARBONATE 500 MG CHEWABLE TAB PO SCH (08:16)
[2018-07-22] MEDS: MULTIVITAMIN TAB PO SCH (08:16)
[2018-07-22] MEDS: LOSARTAN/HCTZ 50/12.5MG TAB PO SCH (08:16)
[2018-07-22] MEDS: ASPIRIN 81 MG ECTAB PO SCH ×2 (08:16→20:49)
[2018-07-22] MEDS: INSULIN ASPART 100 UNITS/ML 3 ML PEN SC SCH ×4 (08:18→21:06)
[2018-07-22] MEDS ORDERED: APPLE CIDER VINEGAR PO SCH (09:00)
--- NOTE | 2018-07-22 09:05 | Anesthesiology Progress Note ---
Date of Service July 22, 2018 Anesthesia Post Procedure Vital Signs Vital Signs: Temp Pulse Pulse Pulse Resp BP Pulse Ox 07/22/18 08:00 36.3 C L 66 18 112/70 95 07/22/18 04:00 36.4 C L 61 18 108/67 95 07/21/18 23:12 36.7 C 69 18 121/73 92 07/21/18 20:00 36.5 C 90 20 137/83 96 07/21/18 19:33 37 C 90 18 136/82 95 07/21/18 18:33 36.4 C L 88 20 135/79 96 07/21/18 17:33 36.5 C 79 18 126/72 95 07/21/18 17:12 36.7 C 77 18 120/72 98 07/21/18 17:03 36.7 C 77 18 120/72 98 07/21/18 16:15 78 21 126/69 94 07/21/18 16:00 96 H 18 136/72 93 07/21/18 15:50 94 H 18 134/71 94 07/21/18 15:40 83 18 121/64 92 07/21/18 15:30 36.3 C L 77 21 134/62 92 07/21/18 15:20 72 14 130/59 L 98 07/21/18 15:10 83 18 120/75 98 07/21/18 15:00 75 20 123/71 94 07/21/18 14:50 73 17 121/67 96 07/21/18 14:41 36.7 C 72 21 120/62 100 07/21/18 13:00 71 16 123/71 95 07/21/18 11:04 36.5 C 80 20 135/65 98 Pain Intensity Right Knee: Pain Intensity: 0 Notes Mental Status: alert / awake / arousable and participated in evaluation Patient Amnestic to Procedure: Yes Nausea / Vomiting: adequately controlled Pain: adequately controlled Airway Patency, RR, SpO2: stable & adequate BP & HR: stable & adequate Hydration State: stable & adequate Neuraxial Anesthesia: was administered and sensory block resolved Anesthetic Complications: no major complications apparent and Pt Satisfied with anesthetic care
--- NOTE | 2018-07-22 09:49 | Orthopedic Progress Note ---
Date of Service July 22, 2018 Assessment & Plan (1) Primary osteoarthritis of right knee: s/p R TKA POD#1 -ancef x 24 -DVT ppx: SCDs, TEDS, 81mg ASA BID -WBAT RLE -Monitor drain output - 125 shift -PT/OT -am labs - 11.7 -DC planning - home with HH Subjective Post Operative Progress Note Patient seen sitting up in bed, comfortable, denies complaints, pain well controlled, no acute issues. Review of Systems Review of Systems: All systems reviewed & are unremarkable except as noted in HPI & below Constitutional: as per Subjective / HPI Physical Exam Constitutional: WD/WN, vitals as above Results & Data Vital Signs (Past 12 Hours) Vital Signs Temp Pulse Resp BP Pulse Ox 07/22/18 08:00 36.3 C L 66 18 112/70 95 07/22/18 04:00 36.4 C L 61 18 108/67 95 07/21/18 23:12 36.7 C 69 18 121/73 92
[2018-07-22 12:18] LABS: Magnesium 1.9 mg/dl (1.8-2.4); Phosphorus 3.1 mg/dl (2.5-4.9)
--- NOTE | 2018-07-22 13:43 | Pharmacy Report ---
Pharmacy Glycemic Short Note 2 - Date of Service July 22, 2018 - Glycemic Short BSG Results (Last 24 hours): 07/21/18 07/21/18 07/21/18 14:44 17:27 20:37 Glucose POC Glucose 103 H 136 H 141 H 07/22/18 07/22/18 07/22/18 02:57 08:10 12:10 Glucose 151 H POC Glucose 127 H 105 H OUTPATIENT ANTIDIABETIC REGIMEN: * metformin 500 mg PO BID * A1c 6.4% (07/05/18) ASSESSMENT: * 68 yr old T2DM female POD #1 s/p R-TKA. Well controlled on metformin as an outpatient. * Patient was given a one time dose of Lantus 20 units last evening due to administration of dexamethasone nicola-op. * Patient is tolerating an oral diet with evidence of renal function near baseline - will resume metformin starting with dinner. * I do not anticipate the patient needing any further Lantus. I will loosen Novolog CF/CR once metformin is on board. PLAN FOR INPATIENT GLYCEMIC CONTROL: * Resume metformin 500 mg PO BID with meals * Basal insulin * none * Bolus insulin * NovoLog per scale ACHS or Q6hrs while NPO * Goal Range: Low 110 mg/dL - High 140 mg/dL * Loosen Correction Factor: 25 mg/dL/unit * Loosen Nutritional / Prandial insulin per carb ratio of 1 unit per 10 grams CHO consumed PLAN FOR DISCHARGE: * Resume home regimen of metformin on discharge
--- NOTE | 2018-07-22 14:33 | Hospitalist Progress Note ---
Date of Service July 22, 2018 Assessment & Plan (1) Ventricular tachyarrhythmia: episode of NSTVT and Sinus tachycardia yesterday: check labs, mag, phos WNL, tsh pending, cont tele, cardio consulted Echo Primary osteoarthritis of right knee:, s/P right TKA, this will be management by primary team Diabetes: ADA diet ordered. She takes metformin at home for diabetic control, ISS Hospitalist will follow up (2) Sinus tachycardia: see above (3) Primary osteoarthritis of right knee: see abvoe (4) Diabetes: see above (5) HTN (hypertension): (6) GENESIS (obstructive sleep apnea): Subjective Nursing staff reported was having 14 beats of nonsustained V. tach, patient was asymptomatic, When I reviewed with the patient she has no complaint, Review of Systems Review of Systems: Review of Systems Constitutional: negative weakness, or fatigue, denies dizziness, Respiratory: no cough, sputum, wheezing, or dyspnea on exertion Cardiac: No chest pain, No orthopnea, No PND, No claudication, No palpitations, Abdomen: No pain, No nausea, No vomiting, No diarrhea, No constipation, No GI bleeding Musculoskeletal: No joint pain, : No dysuria, No urinary frequency, No incontinence, No hematuria Neurologic: No paralysis, No weakness, No numbness/tingling, No vertigo, No balance problems Psychiatric: No depression symptoms, No anhedonism, No anxiety, No insomnia, No substance abuse Heme: No abnormal bleeding/bruising, No clotting problems, No swollen lymph nodes, No night sweats Skin: No rash, No itch, No new/changing skin lesions, No color change, No bleeding Physical Exam Physical Exam: General Appearance: Pleasant conversational, obesity, WD/WN, no apparent distress, Eyes: normal inspection, PERRL, EOMI, sclerae normal ENT: normal ENT inspection, hearing grossly normal, pharynx normal Neck: supple, no adenopathy, thyroid normal, no JVD, no carotid bruits, trachea midline Respiratory/Chest: chest non-tender, decreased breath sounds, no respiratory distress, no accessory muscle use, rales, wheezing Cardiovascular: regular rate, rhythm, no JVD, no murmur Abdomen: normal bowel sounds, non tender, soft, no organomegaly, Extremities: non-tender, normal inspection, no pedal edema, no calf tenderness, normal capillary refill, pelvis stable, Neurologic/Psychiatric: finance mgr II-XII nml as tested, no motor/sensory deficits, alert, normal mood/affect, oriented x 3 Skin: normal color, warm/dry, no rash Lymphatic: no adenopathy Results & Data Vital Signs (Past 12 Hours) Vital Signs Temp Pulse Pulse Resp BP Pulse Ox 07/22/18 11:45 36.7 C 71 20 118/59 L 95 07/22/18 08:00 36.3 C L 66 18 112/70 95 07/22/18 07:00 82 07/22/18 04:00 36.4 C L 61 18 108/67 95 Laboratory Results - last 24 hr 07/21/18 07/21/18 07/21/18 14:44 17:27 19:07 WBC RBC Hgb Hct MCV MCH MCHC RDW Std Deviation RDW Coeff of Antonino Plt Count MPV Sodium Potassium Chloride Carbon Dioxide Anion Gap BUN Creatinine Est Cr Clr Drug Dosing Est GFR ( Amer) Est GFR (Non-Af Amer) BUN/Creatinine Ratio Glucose POC Glucose 103 H 136 H Calcium Phosphorus Magnesium Troponin I < 0.015 07/21/18 07/22/18 07/22/18 20:37 02:57 02:57 WBC 17.38 H RBC 4.04 L Hgb 11.7 L Hct 35.5 L MCV 87.9 MCH 29.0 MCHC 33.0 RDW Std Deviation 45.5 RDW Coeff of Antonino 14.2 Plt Count 278 MPV 8.9 Sodium 138 Potassium 3.7 Chloride 107 Carbon Dioxide 25 Anion Gap 6.0 BUN 21 H Creatinine 1.09 Est Cr Clr Drug Dosing 65.2 Est GFR ( Amer) 60.0 Est GFR (Non-Af Amer) 51.8 BUN/Creatinine Ratio 19.1 Glucose 151 H POC Glucose 141 H Calcium 8.2 L Phosphorus Magnesium Troponin I 07/22/18 07/22/18 07/22/18 02:57 08:10 10:45 WBC RBC Hgb Hct MCV MCH MCHC RDW Std Deviation RDW Coeff of Antonino Plt Count MPV Sodium Potassium Chloride Carbon Dioxide Anion Gap BUN Creatinine Est Cr Clr Drug Dosing Est GFR ( Amer) Est GFR (Non-Af Amer) BUN/Creatinine Ratio Glucose POC Glucose 127 H Calcium Phosphorus Magnesium Troponin I < 0.015 < 0.015 07/22/18 07/22/18 10:45 12:10 WBC RBC Hgb Hct MCV MCH MCHC RDW Std Deviation RDW Coeff of Antonino Plt Count MPV Sodium Potassium Chloride Carbon Dioxide Anion Gap BUN Creatinine Est Cr Clr Drug Dosing Est GFR ( Amer) Est GFR (Non-Af Amer) BUN/Creatinine Ratio Glucose POC Glucose 105 H Calcium Phosphorus 3.1 Magnesium 1.9 Troponin I
--- NOTE | 2018-07-22 16:06 | Cardiology Consultation ---
Date of Consultation July 22, 2018 Assessment & Plan (1) Ventricular tachyarrhythmia: The rhythm recorded on telemetry does appear to be ventricular tachycardia. Is quite wide complex with a very long intrinsic cord deflection. Patient not appear to be symptomatic. She was likely in bed at the time. The rhythm only lasted a couple of seconds. It is unclear if this was the same rhythm identified yesterday although the description of the rhythm during her operation was different. She is not known to have cardiac disease. She has not had symptoms consistent with ventricular arrhythmias. I think we will obtain an echocardiogram. If her left ventricular function is normal and there is no other evidence of structural heart disease, I think she can be discharged without any additional evaluation. If indeed she has some form of cardiac disease she may require a more thorough evaluation to include testing for ischemic heart disease. History of Present Illness Reason for Consultation: Ventricular tachycardia Requesting Physician: Jenny Attending Physician: Ashok Ross MD History of Present Illness Patient is a 68-year-old woman without a known history of cardiac disease who underwent a right total knee replacement yesterday. During her operation the patient was noted on telemetry to have brief periods of tachycardia. These were interpreted as a sinus tachycardia due to the presence of P-waves. The patient was subsequently admitted to telemetry chan for observation. During the course of the morning patient did have 15 beats of a wide complex rhythm. The patient was not symptomatic during that episode. Patient has been limited recently by orthopedic disease. In the past she reported ambulating approximately 3 miles for exercise. She has not report limiting dyspnea during that type of activity but gradually began to experience worsening right knee discomfort. This eventually limited her activity. She has not report exertional chest pain. She denies symptoms of dizziness or lightheadedness. She has never suffered syncope. She has not been aware of palpitations in the past. Currently she is feeling well. She has some mild right knee discomfort. However, she did ambulate twice already today. She denies any other symptoms with ambulation. Allergies Allergy/AdvReac Type Severity Reaction Status Date / Time cocoa butter Allergy Severe Rash Verified 07/21/18 10:56 [From Preparation H] glycerin [From Preparation H] Allergy Severe Rash Verified 07/21/18 10:56 mineral oil Allergy Severe Rash Verified 07/21/18 10:56 [From Preparation H] petrolatum,white Allergy Severe Rash Verified 07/21/18 10:56 [From Preparation H] phenylephrine Allergy Severe Rash Verified 07/21/18 10:56 [From Preparation H] Bactrim Allergy Intermediate BROKE OUT Verified 04/05/16 14:42 IN HIVES sulfamethoxazole Allergy Intermediate BROKE OUT Verified 07/21/18 10:56 IN HIVES trimethoprim Allergy Intermediate BROKE OUT Verified 07/21/18 10:56 IN HIVES raloxifene Allergy Unknown UNKNOWN Verified 07/21/18 10:56 shark liver oil Allergy Unknown REDNESS, Verified 07/21/18 10:56 ITCHING, SWELLING Yeast Allergy Unknown REDNESS, Verified 07/21/18 10:56 ITCHING, SWELLING mivacurium AdvReac Mild VOMIT Verified 07/21/18 10:56 amoxicillin AdvReac Unknown GAVE Verified 07/21/18 10:56 PATIENT C-DIFF azithromycin [From Zithromax] AdvReac Unknown nausea/vomi Verified 07/21/18 10:56 ting benzonatate AdvReac Unknown Vomiting Verified 07/21/18 10:56 [From Nu Gannon] lisinopril AdvReac Unknown dry cough Verified 07/21/18 10:56 ropinirole AdvReac Unknown unable to Verified 07/21/18 10:56 tolerate Liver Allergy Unknown REDNESS, Uncoded 07/21/18 10:56 ITCHING, SWELLING Phenylmercuric Nitrate Allergy Unknown REDNESS, Uncoded 07/21/18 10:56 ITCHING, SWELLING Home Medications Home Medications Medication Instructions Recorded Confirmed Type C,E,zinc,copper [id number] 1 cap PO QAM 07/05/18 07/21/18 History [Ocuvite Adult 50 Plus] apple cider vinegar 500 mg PO DAILY 07/05/18 07/21/18 History atorvastatin 10 mg PO QPM 07/05/18 07/21/18 History calcium carbonate [Tums] 500 mg PO QAM 07/05/18 07/21/18 History cholecalciferol (vitamin D3) 2,000 unit PO QAM 07/05/18 07/21/18 History [Vitamin D3] clonazepam 1 mg PO HS 07/05/18 07/21/18 History diclofenac sodium [Voltaren] 2 g TOPICAL QID PRN 07/05/18 07/21/18 History fluocinonide 1 applic TOPICAL UD PRN 07/05/18 07/21/18 History fluticasone propionate 1 spray INTRANASAL DAILY PRN 07/05/18 07/21/18 History losartan-hydrochlorothiazide 1 tab PO QAM 07/05/18 07/21/18 History metformin 500 mg PO BID 07/05/18 07/21/18 History omeprazole 40 mg PO QAM 07/05/18 07/21/18 History venlafaxine 37.5 mg PO QPM 07/05/18 07/21/18 History venlafaxine 75 mg PO QPM 07/05/18 07/21/18 History Patient History Medical History Sinus tachycardia (Acute) Depression Osteoarthritis Diabetes TYPE 2, NIDDM Crohns disease HTN (hypertension) GENESIS (obstructive sleep apnea) CPAP Pneumonia (Resolved) ~6 YEARS AGO Chronic back pain Gout H/O Patella fracture RIGHT PATELLA (JULY 2014) Restless leg syndrome Surgical History History of carpal tunnel release BILATERAL History of cataract surgery BILATERAL History of colonoscopy History of esophagogastroduodenoscopy (EGD) History of tonsillectomy S/P foot surgery, right REPAIR OF MYKEL'S FRACTURE Family History Daughter No problems noted. Brother FHx: myocardial infarction, Onset Age: 64 Stroke, Onset Age: 64 Sister FHx: breast cancer Mother FHx: breast cancer Social History Preferred Language: Bhutanese Communication Ability: Effective Economic Development Coordinator Required: No Beliefs That Will Affect Care: None Current Living Situation: Spouse Other Information That Helps Us Care for You: No Feels Safe at Home: Yes Safety Concerns: Feels Safe At This Time Smoking Status: Unknown if ever smoked Hx Alcohol Use: No Hx Substance Use: No Review of Systems Review of Systems: All systems reviewed & are unremarkable except as noted in HPI & below No recent constitutional symptoms such as fevers or chills. Physical Exam Physical Exam: She is alert and oriented x3. Mood affect appear normal. She answered all questions appropriately. Obese HEENT: Sclerae are anicteric. Pupils are equal and reactive to light and accommodation. Extraocular movements were intact. Neuro: Cranial nerves intact Neck: Examination of the submandibular region did not reveal any significant lymphadenopathy. Carotids are palpable bilaterally and free of bruits on auscultation. There was no evidence of jugular venous distention. The thyroid was not enlarged. Lungs: Lungs are clear to auscultation bilaterally. There are no rales wheezes or rhonchi. She has normal respiratory effort without use of accessory muscles. There is normal pulmonary excursion. Cardiac: The rhythm was regular. S1 and S2 were normal. There are no murmurs on examination. The PMI was not markedly displaced on palpation. Abdomen: The abdomen was soft and nontender. Extremities: Patient has bilateral radial pulses that are equal in intensity. There is no evidence cyanosis or clubbing. The right knee is bandaged with a drain in place. Skin: There are no rashes noted on examination today. Results & Data Vital Signs (Past 12 Hours) Vital Signs Temp Pulse Pulse Resp BP Pulse Ox 07/22/18 11:45 36.7 C 71 20 118/59 L 95 07/22/18 08:00 36.3 C L 66 18 112/70 95 07/22/18 07:00 82 Laboratory Results Abnormal Lab Results 07/21/18 07/21/18 07/21/18 17:27 19:07 20:37 WBC RBC Hgb Hct MCV MCH MCHC RDW Std Deviation RDW Coeff of Antonino Plt Count MPV Sodium Potassium Chloride Carbon Dioxide Anion Gap BUN Creatinine Est Cr Clr Drug Dosing Est GFR ( Amer) Est GFR (Non-Af Amer) BUN/Creatinine Ratio Glucose POC Glucose 136 H 141 H Calcium Phosphorus Magnesium Troponin I < 0.015 07/22/18 07/22/18 07/22/18 02:57 02:57 02:57 WBC 17.38 H RBC 4.04 L Hgb 11.7 L Hct 35.5 L MCV 87.9 MCH 29.0 MCHC 33.0 RDW Std Deviation 45.5 RDW Coeff of Antonino 14.2 Plt Count 278 MPV 8.9 Sodium 138 Potassium 3.7 Chloride 107 Carbon Dioxide 25 Anion Gap 6.0 BUN 21 H Creatinine 1.09 Est Cr Clr Drug Dosing 65.2 Est GFR ( Amer) 60.0 Est GFR (Non-Af Amer) 51.8 BUN/Creatinine Ratio 19.1 Glucose 151 H POC Glucose Calcium 8.2 L Phosphorus Magnesium Troponin I < 0.015 07/22/18 07/22/18 07/22/18 08:10 10:45 10:45 WBC RBC Hgb Hct MCV MCH MCHC RDW Std Deviation RDW Coeff of Antonino Plt Count MPV Sodium Potassium Chloride Carbon Dioxide Anion Gap BUN Creatinine Est Cr Clr Drug Dosing Est GFR ( Amer) Est GFR (Non-Af Amer) BUN/Creatinine Ratio Glucose POC Glucose 127 H Calcium Phosphorus 3.1 Magnesium 1.9 Troponin I < 0.015 07/22/18 12:10 WBC RBC Hgb Hct MCV MCH MCHC RDW Std Deviation RDW Coeff of Antonino Plt Count MPV Sodium Potassium Chloride Carbon Dioxide Anion Gap BUN Creatinine Est Cr Clr Drug Dosing Est GFR ( Amer) Est GFR (Non-Af Amer) BUN/Creatinine Ratio Glucose POC Glucose 105 H Calcium Phosphorus Magnesium Troponin I ECG Additional Comments: Normal sinus rhythm with right bundle branch block
[2018-07-22] MEDS ORDERED: METOPROLOL TARTRATE 1 MG/ML VIAL IV ONE (16:43)
[2018-07-22] MEDS ORDERED: METOPROLOL TARTRATE 1 MG/ML VIAL IV STA (16:45)
[2018-07-22] MEDS: METFORMIN HCL 500 MG TAB PO SCH (17:41)
[2018-07-22] MEDS: dilTIAZem HCl 125 MG in DEXTROSE 5% 100 ML IV SCH (18:50)
[2018-07-22] MEDS: VENLAFAXINE HCL 37.5 MG TAB PO SCH (20:49)
[2018-07-22] MEDS: METOPROLOL TARTRATE 25 MG TAB PO SCH (20:50)
[2018-07-22] MEDS: SENNA 8.6 MG TAB PO SCH (20:50)
[2018-07-22] MEDS: ATORVASTATIN 10 MG TAB PO SCH (20:50)
[2018-07-22] MEDS: VENLAFAXINE HCL XR 75 MG CAPXR PO SCH (20:50)
[2018-07-22] MEDS: clonazePAM 1 MG TAB PO SCH (22:04)
[2018-07-23] MEDS: ACETAMINOPHEN 500 MG TAB PO SCH ×4 (05:54→22:39)
[2018-07-23 06:59] LABS: BUN Creatinine Ratio 21.4 (10-20); Calcium 8.5 mg/dl (8.5-10.1); Creatinine Clr Calc Pharmacy 70.2 ml/min; Est GFR (African American) 64.2; Est GFR (Non-African American) 55.4; Potassium 3.7 mmol/L (3.5-5.1)
[2018-07-23 07:09] LABS: Phosphorus 3.5 mg/dl (2.5-4.9)
[2018-07-23] MEDS ORDERED: PERFLUTREN LIPID MICROSPHERE (DEFINITY) IV ONE (07:44)
[2018-07-23] MEDS: PANTOprazole 40 MG TAB PO SCH (07:47)
[2018-07-23] MEDS: DOCUSATE SODIUM 100 MG CAP PO SCH ×2 (07:47→20:34)
[2018-07-23] MEDS: MULTIVITAMIN TAB PO SCH (07:47)
[2018-07-23] MEDS: METOPROLOL TARTRATE 25 MG TAB PO SCH ×2 (07:48→20:27)
[2018-07-23] MEDS: CEROVITE ADV FORMULA TAB PO SCH (07:48)
[2018-07-23] MEDS: CALCIUM CARBONATE 500 MG CHEWABLE TAB PO SCH (07:48)
[2018-07-23] MEDS: METFORMIN HCL 500 MG TAB PO SCH ×2 (07:48→16:33)
[2018-07-23] MEDS: ASPIRIN 81 MG ECTAB PO SCH ×2 (07:49→20:29)
[2018-07-23] MEDS: CeleBREX 200 MG CAP PO SCH ×2 (07:49→20:28)
[2018-07-23] MEDS: CHOLECALCIFEROL 1,000 UNITS TAB PO SCH (07:49)
[2018-07-23] MEDS: LOSARTAN/HCTZ 50/12.5MG TAB PO SCH (07:49)
[2018-07-23] MEDS: INSULIN ASPART 100 UNITS/ML 3 ML PEN SC SCH ×4 (08:34→20:42)
[2018-07-23] MEDS: dilTIAZem HCl 125 MG in DEXTROSE 5% 100 ML IV SCH (09:33)
--- NOTE | 2018-07-23 09:46 | Orthopedic Progress Note ---
Date of Service July 23, 2018 Assessment & Plan (1) Primary osteoarthritis of right knee: s/p R TKA POD#2 -ancef x 24 -DVT ppx: SCDs, TEDS, 81mg ASA BID -WBAT RLE -Monitor drain output - 160 shift -PT/OT -am labs, hgb pending -a fib being monitored per medical team, converted overnight, stable -DC planning - home with HH Subjective Post Operative Progress Note Patient seen sitting up in bed, comfortable, denies complaints, pain well con trolled, no acute issues. Patient had episode of A. fib which auto converted overnight. Currently asymptomatic, denies chest pain shortness of breath, lightheaded or dizziness. Review of Systems Review of Systems: All systems reviewed & are unremarkable except as noted in HPI & below Constitutional: as per Subjective / HPI Physical Exam Physical Exam: RLE NVSI +EHL/FHL/TA/GS SILT grossly, +2 DP pulse, compartments soft NT, dressing cdi. Constitutional: WD/WN, vitals as above Results & Data Vital Signs (Past 12 Hours) Vital Signs Temp Pulse Pulse Resp BP Pulse Ox 07/23/18 08:00 36.8 C 61 72 20 122/73 98 07/23/18 04:10 36.5 C 64 16 109/73 92 07/23/18 02:20 90 139/102 H 07/23/18 01:20 113/78 07/23/18 00:20 82 115/76 07/23/18 00:17 83 95/70 L 07/22/18 23:50 94 H 118/72 07/22/18 23:14 36.4 C L 97 H 18 121/76 96 07/22/18 21:59 112 H 107/71 07/22/18 21:44 93 H 122/76
[2018-07-23 10:10] LABS: Basophils # (auto) 0.05 K/uL (0-0.2); Basophils % (auto) 0.4 %; Eosinophils # (auto) 0.42 K/uL (0-0.5); Eosinophils % (auto) 3.2 %; Hematocrit (blood only) 33.9 % (37-47); Hemoglobin 11.1 g/dL (12.0-16.0); Immature Granulocytes # (auto) 0.03 K/uL (0.00-0.02); Immature Granulocytes % (auto) 0.2 %; Lymphocytes # (auto) 3.43 K/uL (1.2-3.4); Lymphocytes % (auto) 26.1 %; Mean Corpuscular Volume 88.5 fL (80-100); Mean Platelet Volume 9.1 fL (7.4-10.4); Monocytes # (auto) 1.56 K/uL (0.11-0.59); Monocytes % (auto) 11.9 %; Neutrophils # (auto) 7.66 K/uL (1.4-6.5); Neutrophils % (auto) 58.2 %; Platelet Count 280 K/uL (130-400); RDW Coefficient of Variation 14.8 % (11.5-14.5); RDW Standard Deviation 47.9 fL (36.4-46.3); Red Blood Count 3.83 M/uL (4.2-5.4); White Blood Count 13.15 K/uL (4.8-10.8)
[2018-07-23 10:14] LABS: Mean Corpuscular Hgb Conc 32.7 g/dL (32-36)
--- NOTE | 2018-07-23 12:29 | Cardiology Progress Note ---
Date of Service July 23, 2018 Assessment & Plan (1) Ventricular tachyarrhythmia: Her overall cardiac function appeared adequate. There is no significant valvular heart disease. Do not think we need to pursue an ischemic evaluation at this time. (2) Atrial fibrillation: She had an episode of atrial fibrillation yesterday evening. She was not symptomatic. She certainly has multiple risk factors for atrial fibrillation. It is unclear whether this was the rhythm identified during her surgery or if it was just fortuitously discovered since she has been on telemetry. It is very likely that she has been having paroxysms of atrial fibrillation at home. Her rates were high during her episode. I think we should start a beta-rico and monitor her response. If her blood pressures are low on added beta-rico therapy perhaps we could discontinue her current antihypertensive and increase her beta blockade. We may be able to both control her blood pressure and heart rates with metoprolol. Her chads Vasc score is at least 3. She would benefit from systemic anticoagulation. I would recommend 1 of the novel agents, either Xarelto 20 milligrams daily or Eliquis 5 milligrams twice daily. Her normal renal function will allow us to prescribe the standard doses. This can be initiated as soon as the surgeons feel her risk of bleeding is low. Subjective Patient is feeling well today. She is unaware of any palpitations or racing heartbeats over the course of the evening. She has been ambulatory. She denies dizziness or lightheadedness. No symptoms of chest discomfort or breathing difficulty. Review of Systems Review of Systems: Per HPI Physical Exam Physical Exam: She is alert and oriented x3. Mood affect appear normal. She answered all questions appropriately. HEENT: Sclerae are anicteric. Pupils are equal and reactive to light and accommodation. Extraocular movements were intact. Neuro: Cranial nerves intact Lungs: Lungs are clear to auscultation bilaterally. There are no rales wheezes or rhonchi. She has normal respiratory effort without use of accessory muscles. There is normal pulmonary excursion. Cardiac: The rhythm was regular. S1 and S2 were normal. There are no murmurs on examination. The PMI was not markedly displaced on palpation. Extremities: Patient has bilateral radial pulses that are equal in intensity. There is no evidence cyanosis or clubbing. She is wearing sequential compression devices. Both legs are wrapped. Drain in the right knee Skin: There are no rashes noted on examination today. Results & Data Vital Signs (Past 12 Hours) Vital Signs Temp Pulse Pulse Resp BP Pulse Ox 07/23/18 12:00 36.9 C 76 20 114/66 95 07/23/18 08:00 36.8 C 61 72 20 122/73 98 07/23/18 04:10 36.5 C 64 16 109/73 92 07/23/18 02:20 90 139/102 H 07/23/18 01:20 113/78 Laboratory Results Abnormal Lab Results 07/22/18 07/22/18 07/23/18 16:50 20:46 05:38 WBC RBC Hgb Hct MCV MCH MCHC RDW Std Deviation RDW Coeff of Antonino Plt Count MPV Immature Gran % (Auto) Neut % (Auto) Lymph % (Auto) [place] % (Auto) Eos % (Auto) Baso % (Auto) Immature Gran # (Auto) Neut # (Auto) Lymph # (Auto) [place] # (Auto) Eos # (Auto) Baso # (Auto) Sodium 144 Potassium 3.7 Chloride 111 H Carbon Dioxide 27 Anion Gap 6.0 BUN 22 H Creatinine 1.03 Est Cr Clr Drug Dosing 70.2 Est GFR ( Amer) 64.2 Est GFR (Non-Af Amer) 55.4 BUN/Creatinine Ratio 21.4 H Glucose 94 POC Glucose 109 H 98 Calcium 8.5 Phosphorus 3.5 Magnesium 2.0 TSH 2.170 07/23/18 07/23/18 07/23/18 07:40 09:55 11:31 WBC 13.15 H RBC 3.83 L Hgb 11.1 L Hct 33.9 L MCV 88.5 MCH 29.0 MCHC 32.7 RDW Std Deviation 47.9 H RDW Coeff of Antonino 14.8 H Plt Count 280 MPV 9.1 Immature Gran % (Auto) 0.2 Neut % (Auto) 58.2 Lymph % (Auto) 26.1 [place] % (Auto) 11.9 Eos % (Auto) 3.2 Baso % (Auto) 0.4 Immature Gran # (Auto) 0.03 H Neut # (Auto) 7.66 H Lymph # (Auto) 3.43 H [place] # (Auto) 1.56 H Eos # (Auto) 0.42 Baso # (Auto) 0.05 Sodium Potassium Chloride Carbon Dioxide Anion Gap BUN Creatinine Est Cr Clr Drug Dosing Est GFR ( Amer) Est GFR (Non-Af Amer) BUN/Creatinine Ratio Glucose POC Glucose 105 H 100 H Calcium Phosphorus Magnesium TSH Diagnostic Findings Echocardiogram performed today revealed essentially preserved LV systolic function without significant valvular heart disease. ECG Additional Comments: Telemetry reveals an episode of atrial fibrillation with associated high ventricular rates. Spontaneous conversion normal sinus rhythm.
--- NOTE | 2018-07-23 15:22 | Hospitalist Progress Note ---
Date of Service July 23, 2018 Assessment & Plan (1) Atrial fibrillation: Episode of atrial fibrillation on 07/22. Magnesium, phosphate, & TSH were all normal. Echo on 07/23/2018 showed EF 50-55% without any valvular disease. - Converted to - Continue metoprolol 25mg PO BID - Start anticoagulation (Xarelto or Eliquis) when cleared by orthopedics (2) Primary osteoarthritis of right knee: S/p right TKA with Dr. Ross on 07/21. - Doing well with PT/OT - Post-operative care per surgery - Likely discharge on 07/24 (3) Diabetes: Sliding scale insulin (4) HTN (hypertension): BP under control with current regimen. - Continue HCTZ/losartan combo pill & beta-rico (5) GENESIS (obstructive sleep apnea): CPAP while inpatient Subjective Patient is feeling well today. Has been up walking around with minimal knee pain. Reports no fevers/chills, chest pain, shortness of breath, abdominal pain, nausea, or vomiting. Review of Systems Review of Systems: All systems reviewed & are unremarkable except as noted in HPI & below Physical Exam Constitutional: WD/WN, vitals as above Eyes: PERRL, conjunctivae normal, anicteric sclerae ENMT: external ear and nose normal, oropharynx normal Neck: trachea midline, no thyromegaly Respiratory: normal respiratory effort, lungs clear to auscultation Cardiovascular: RRR, no murmur, no edema Gastrointestinal (Abdomen): normal bowel sounds, soft, nontender, no hepatosplenomegaly Skin: no rashes, warm and dry Neurologic: CN's II-XI intact bilaterally; no focal motor deficits Results & Data Vital Signs (Past 12 Hours) Vital Signs Temp Pulse Pulse Resp BP Pulse Ox 07/23/18 12:00 36.9 C 76 20 114/66 95 07/23/18 08:00 36.8 C 61 72 20 122/73 98 07/23/18 04:10 36.5 C 64 16 109/73 92
[2018-07-23] MEDS: ATORVASTATIN 10 MG TAB PO SCH (20:27)
[2018-07-23] MEDS: VENLAFAXINE HCL 37.5 MG TAB PO SCH (20:27)
[2018-07-23] MEDS: VENLAFAXINE HCL XR 75 MG CAPXR PO SCH (20:28)
[2018-07-23] MEDS: SENNA 8.6 MG TAB PO SCH (20:29)
[2018-07-23] MEDS: clonazePAM 1 MG TAB PO SCH (23:12)
[2018-07-24] MEDS: ACETAMINOPHEN 500 MG TAB PO SCH ×2 (06:11→13:56)
--- NOTE | 2018-07-24 07:17 | Orthopedic Progress Note ---
Date of Service July 24, 2018 Assessment & Plan (1) Primary osteoarthritis of right knee: s/p R TKA POD#3 -ancef x 24 -DVT ppx: SCDs, TEDS, Aspirin 81mg BID -WBAT RLE -PT/OT -A- fib being monitored per medical team. Okay to start anticoagulation from ortho standpoint-choice per medical team. Will need script sent once choice is made. -DC planning - home with HH, likely today if cleared for discharge by medical team. Patient seen and examined, agree with above assessment plan. Subjective Patient is feeling well today. Seen resting in bedside chair. Reports no fevers/chills, chest pain, shortness of breath, abdominal pain, nausea, or vomiting. Review of Systems Review of Systems: All systems reviewed & are unremarkable except as noted in HPI & below Physical Exam Physical Exam: Dressing c/d/i. This was removed. ARVIN intact. Hemovac site intact, drains pulled with 7 holes in each. No eyrthema or drainage. Dressing applied to old hemovac site. No calf tenderness. Sensation and n/v status intact. Toes mobile Results & Data Vital Signs (Past 12 Hours) Vital Signs Temp Pulse Resp BP Pulse Ox 07/24/18 03:30 36.8 C 64 17 140/84 94 07/23/18 23:15 36.8 C 70 18 141/81 H 91
[2018-07-24] MEDS: MULTIVITAMIN TAB PO SCH (08:45)
[2018-07-24] MEDS: CeleBREX 200 MG CAP PO SCH (08:45)
[2018-07-24] MEDS: LOSARTAN/HCTZ 50/12.5MG TAB PO SCH (08:45)
[2018-07-24] MEDS: ASPIRIN 81 MG ECTAB PO SCH (08:45)
[2018-07-24] MEDS: PANTOprazole 40 MG TAB PO SCH (08:46)
[2018-07-24] MEDS: CEROVITE ADV FORMULA TAB PO SCH (08:46)
[2018-07-24] MEDS: CHOLECALCIFEROL 1,000 UNITS TAB PO SCH (08:46)
[2018-07-24] MEDS: INSULIN ASPART 100 UNITS/ML 3 ML PEN SC SCH ×2 (08:46→12:28)
[2018-07-24] MEDS: METFORMIN HCL 500 MG TAB PO SCH (08:47)
[2018-07-24] MEDS: DOCUSATE SODIUM 100 MG CAP PO SCH (08:55)
[2018-07-24] MEDS: CALCIUM CARBONATE 500 MG CHEWABLE TAB PO SCH (08:55)
[2018-07-24] MEDS: METOPROLOL TARTRATE 25 MG TAB PO SCH (09:45)
--- NOTE | 2018-07-24 13:12 | Hospitalist Progress Note ---
Date of Service July 24, 2018 Assessment & Plan (1) Atrial fibrillation: Episode of atrial fibrillation on 07/22. Magnesium, phosphate, & TSH were all normal. Echo on 07/23/2018 showed EF 50-55% without any valvular disease. - Converted to sinus on 07/23 - Discharged on metoprolol 25mg PO BID & apixaban 5 mg PO BID - Follow up with Dr. Zavala in clinic. (2) Primary osteoarthritis of right knee: S/p right TKA with Dr. Ross on 07/21. - Doing well with PT/OT - Post-operative care per surgery (3) Diabetes: Sliding scale insulin (4) HTN (hypertension): BP under control with current regimen. - Continue HCTZ/losartan combo pill & beta-rico (5) GENESIS (obstructive sleep apnea): CPAP while inpatient Subjective Feeling well. No major complaints. No hx of bleeding or anything. Review of Systems Review of Systems: All systems reviewed & are unremarkable except as noted in HPI & below Physical Exam Constitutional: WD/WN, vitals as above Eyes: PERRL, conjunctivae normal, anicteric sclerae ENMT: external ear and nose normal, oropharynx normal Neck: trachea midline, no thyromegaly Respiratory: normal respiratory effort, lungs clear to auscultation Cardiovascular: RRR, no murmur, no edema Gastrointestinal (Abdomen): normal bowel sounds, soft, nontender, no hepatosplenomegaly Skin: no rashes, warm and dry Neurologic: CN's II-XI intact bilaterally; no focal motor deficits Results & Data Vital Signs (Past 12 Hours) Vital Signs Temp Pulse Pulse Resp BP Pulse Ox 07/24/18 11:17 36.6 C 58 L 18 129/81 93 07/24/18 08:28 36.5 C 71 18 138/75 97 07/24/18 08:00 67 07/24/18 03:30 36.8 C 64 17 140/84 94
--- NOTE | 2018-07-24 16:35 | Discharge Summary ---
Date of Service July 24, 2018 Admission HPI Per Admitting Provider Patient is a 68 year old female with PMHx significant for HTN, DMII, GENESIS, and GERD who presents with longstanding right knee pain. She was previously a patient of Dr. Acevedo. She has failed conservative measures including corticosteroid injections and anti-inflammatory medications. She would like to proceed with right knee replacement with Dr. Ross. Patient denies headaches, sweats, fevers, chills, double vision, blurred vision, cough, sore throat, dysphagia, chest pain, sob, wheezing, n/v/d/c, numbness, tingling, fatigue, urinary symptoms, mood disorders. ROS positive for right knee pain and stiffness. Admission Exam Per Admitting Provider Constitutional: well developed and well nourished; no acute distress Eyes: PERRL, conjunctivae normal, anicteric sclerae ENMT: external ear and nose normal, oropharynx normal Neck: trachea midline, no thyromegaly Respiratory: normal respiratory effort, lungs clear to auscultation Cardiovascular: RRR, no murmur, no edema Musculoskeletal: Right knee: Tenderness to palpation medial joint line. ROM mildly decreased with crepitus on ROM. Stable to valgus and varus stress Skin: no rashes, warm and dry Neurologic: patellar DTR's 2+ bilat, sensation intact Psychiatric: A+Ox3, euthymic affect Principal Diagnosis Right knee osteoarthritis A-fib Discharge Exam Constitutional well developed and well nourished; no acute distress Eyes PERRL, conjunctivae normal, anicteric sclerae ENMT external ear and nose normal, oropharynx normal Neck trachea midline, no thyromegaly Respiratory normal respiratory effort, lungs clear to auscultation Cardiovascular RRR, no murmur, no edema Skin no rashes, warm and dry Neurologic patellar DTR's 2+ bilat, sensation intact Psychiatric A+Ox3, euthymic affect Discharge Data Allergies Allergy/AdvReac Type Severity Reaction Status Date / Time cocoa butter Allergy Severe Rash Verified 07/21/18 10:56 [From Preparation H] glycerin [From Preparation H] Allergy Severe Rash Verified 07/21/18 10:56 mineral oil Allergy Severe Rash Verified 07/21/18 10:56 [From Preparation H] petrolatum,white Allergy Severe Rash Verified 07/21/18 10:56 [From Preparation H] phenylephrine Allergy Severe Rash Verified 07/21/18 10:56 [From Preparation H] Bactrim Allergy Intermediate BROKE OUT Verified 04/05/16 14:42 IN HIVES sulfamethoxazole Allergy Intermediate BROKE OUT Verified 07/21/18 10:56 IN HIVES trimethoprim Allergy Intermediate BROKE OUT Verified 07/21/18 10:56 IN HIVES raloxifene Allergy Unknown UNKNOWN Verified 07/21/18 10:56 shark liver oil Allergy Unknown REDNESS, Verified 07/21/18 10:56 ITCHING, SWELLING Yeast Allergy Unknown REDNESS, Verified 07/21/18 10:56 ITCHING, SWELLING mivacurium AdvReac Mild VOMIT Verified 07/21/18 10:56 amoxicillin AdvReac Unknown GAVE Verified 07/21/18 10:56 PATIENT C-DIFF azithromycin [From Zithromax] AdvReac Unknown nausea/vomi Verified 07/21/18 10:56 ting benzonatate AdvReac Unknown Vomiting Verified 07/21/18 10:56 [From Tessalon Perles] lisinopril AdvReac Unknown dry cough Verified 07/21/18 10:56 ropinirole AdvReac Unknown unable to Verified 07/21/18 10:56 tolerate Liver Allergy Unknown REDNESS, Uncoded 07/21/18 10:56 ITCHING, SWELLING Phenylmercuric Nitrate Allergy Unknown REDNESS, Uncoded 07/21/18 10:56 ITCHING, SWELLING Consultations 07/21/18 17:03 Consult Case Management - Discharge Planning Routine Consult Hospitalist Routine 07/22/18 12:05 Consult Cardiology Routine Procedures Performed Operation Date: 07/21/18 12:45 Actual Procedures p Right Total Knee Arthroplasty(Right) - Ashok Ross MD Ordered Studies 07/21/18 05:00 US - OR guided needle placemen Routine Hospital Course (1) Primary osteoarthritis of right knee: Patient presented for same day admission following right total knee arthroplasty on 07/21/18. She tolerated procedure well. During surgery she had an abnormal rhythm and was admitted to telemetry for observation. Post-operatively, her activity was progressed and well tolerated. They participated in PT with ambulation distance of 250 feet. ROM of operative knee reached 92 degrees. Labs remained stable- lowest hemoglobin recorded: 11.1. Dr. Juan Carlos Colunga of medical service was consulted for medical management during admission. Dr. Ale Zavala of cardiology was also consulted due to events of tachycardia as well as new diagnosis of atrial fibrillation. She did autoconvert shortly after going into A-counts include [facility] beds at the [facility]. An echocardiogram was obtained and showed a low normal LV ejection fraction, otherwise benign. She was started on Metoprolol for rate control as well as Eliquis for anti coagulation. Pain controlled on oral medications. Please refer to daily progress notes and PT notes for complete details. After exam on 07/24/18, patient was felt to be stable for discharge home with home PT. Patient will f/u in the office in about 2 weeks for further evaluation including x-rays and incision check, sooner if having any issues or concerns. Lab Results 07/05/18 07/05/18 07/05/18 Range/Units 14:44 14:44 14:44 WBC 8.34 (4.8-10.8) K/uL RBC 4.51 (4.2-5.4) M/uL Hgb 13.5 (12.0-16.0) g/dL Hct 40.5 (37-47) % MCV 89.8 (80-100) fL MCH 29.9 (25-34) pg MCHC 33.3 (32-36) g/dL RDW Std Deviation 48.1 H (36.4-46.3) fL RDW Coeff of Antonino 14.6 H (11.5-14.5) % Plt Count 346 (130-400) K/uL MPV 9.4 (7.4-10.4) fL Immature Gran % (Auto) 0.2 % Neut % (Auto) 56.1 % Lymph % (Auto) 27.3 % Summers % (Auto) 9.8 % Eos % (Auto) 5.9 % Baso % (Auto) 0.7 % Immature Gran # (Auto) 0.02 (0.00-0.02) K/uL Neut # (Auto) 4.67 (1.4-6.5) K/uL Lymph # (Auto) 2.28 (1.2-3.4) K/uL Summers # (Auto) 0.82 H (0.11-0.59) K/uL Eos # (Auto) 0.49 (0-0.5) K/uL Baso # (Auto) 0.06 (0-0.2) K/uL PT 10.0 (9.0-12.0) Seconds INR 1.0 (0.9-1.1) APTT 27.3 (21.0-31.0) Seconds PTT Ratio 1.0 Sodium 142 (136-145) mmol/L Potassium 3.9 (3.5-5.1) mmol/L Chloride 106 (98-107) mmol/L Carbon Dioxide 31 (21-32) mmol/L Anion Gap 5.0 (3-11) BUN 14 (7-18) mg/dl Creatinine 0.84 (0.6-1.2) mg/dl Est Cr Clr Drug Dosing 84.9 ml/min Est GFR ( Amer) 82.2 Est GFR (Non-Af Amer) 70.9 BUN/Creatinine Ratio 16.4 (10-20) Glucose 95 (70-99) mg/dl POC Glucose (70-99) Estimat Average Glucose mg/dl Hemoglobin A1c (4.5-5.6) % Calcium 9.2 (8.5-10.1) mg/dl Phosphorus (2.5-4.9) mg/dl Magnesium (1.8-2.4) mg/dl Troponin I (0-0.045) ng/ml Albumin 3.7 (3.4-5.0) gm/dl TSH (0.300-4.500) uIu/ml Urine Color Urine Appearance (Clear) Urine pH (4.5-7.5) Ur Specific [place] (1.000-1.030) Urine Protein (Negative) Urine Glucose (UA) (Negative) Urine Ketones (Negative) Urine Blood (Negative) Urine Nitrite (Negative) Urine Bilirubin (Negative) Urine Urobilinogen (Negative) Ur Leukocyte Esterase (Negative) Blood Type Antibody Screen 07/05/18 07/05/18 07/05/18 Range/Units 14:44 14:44 Unknown WBC (4.8-10.8) K/uL RBC (4.2-5.4) M/uL Hgb (12.0-16.0) g/dL Hct (37-47) % MCV (80-100) fL MCH (25-34) pg MCHC (32-36) g/dL RDW Std Deviation (36.4-46.3) fL RDW Coeff of Antonino (11.5-14.5) % Plt Count (130-400) K/uL MPV (7.4-10.4) fL Immature Gran % (Auto) % Neut % (Auto) % Lymph % (Auto) % Summers % (Auto) % Eos % (Auto) % Baso % (Auto) % Immature Gran # (Auto) (0.00-0.02) K/uL Neut # (Auto) (1.4-6.5) K/uL Lymph # (Auto) (1.2-3.4) K/uL Summers # (Auto) (0.11-0.59) K/uL Eos # (Auto) (0-0.5) K/uL Baso # (Auto) (0-0.2) K/uL PT (9.0-12.0) Seconds INR (0.9-1.1) APTT (21.0-31.0) Seconds PTT Ratio Sodium (136-145) mmol/L Potassium (3.5-5.1) mmol/L Chloride (98-107) mmol/L Carbon Dioxide (21-32) mmol/L Anion Gap (3-11) BUN (7-18) mg/dl Creatinine (0.6-1.2) mg/dl Est Cr Clr Drug Dosing ml/min Est GFR ( Amer) Est GFR (Non-Af Amer) BUN/Creatinine Ratio (10-20) Glucose (70-99) mg/dl POC Glucose (70-99) Estimat Average Glucose 137 mg/dl Hemoglobin A1c 6.4 H (4.5-5.6) % Calcium (8.5-10.1) mg/dl Phosphorus (2.5-4.9) mg/dl Magnesium (1.8-2.4) mg/dl Troponin I (0-0.045) ng/ml Albumin (3.4-5.0) gm/dl TSH (0.300-4.500) uIu/ml Urine Color Yellow Urine Appearance Clear (Clear) Urine pH 7.0 (4.5-7.5) Ur Specific [place] 1.017 (1.000-1.030) Urine Protein Negative (Negative) Urine Glucose (UA) Negative (Negative) Urine Ketones Negative (Negative) Urine Blood Negative (Negative) Urine Nitrite Negative (Negative) Urine Bilirubin Negative (Negative) Urine Urobilinogen Negative (Negative) Ur Leukocyte Esterase Negative (Negative) Blood Type O Negative Antibody Screen NEGATIVE 07/21/18 07/21/18 07/21/18 Range/Units 11:03 14:44 17:27 WBC (4.8-10.8) K/uL RBC (4.2-5.4) M/uL Hgb (12.0-16.0) g/dL Hct (37-47) % MCV (80-100) fL MCH (25-34) pg MCHC (32-36) g/dL RDW Std Deviation (36.4-46.3) fL RDW Coeff of Antonino (11.5-14.5) % Plt Count (130-400) K/uL MPV (7.4-10.4) fL Immature Gran % (Auto) % Neut % (Auto) % Lymph % (Auto) % Summers % (Auto) % Eos % (Auto) % Baso % (Auto) % Immature Gran # (Auto) (0.00-0.02) K/uL Neut # (Auto) (1.4-6.5) K/uL Lymph # (Auto) (1.2-3.4) K/uL Summers # (Auto) (0.11-0.59) K/uL Eos # (Auto) (0-0.5) K/uL Baso # (Auto) (0-0.2) K/uL PT (9.0-12.0) Seconds INR (0.9-1.1) APTT (21.0-31.0) Seconds PTT Ratio Sodium (136-145) mmol/L Potassium (3.5-5.1) mmol/L Chloride (98-107) mmol/L Carbon Dioxide (21-32) mmol/L Anion Gap (3-11) BUN (7-18) mg/dl Creatinine (0.6-1.2) mg/dl Est Cr Clr Drug Dosing ml/min Est GFR ( Amer) Est GFR (Non-Af Amer) BUN/Creatinine Ratio (10-20) Glucose (70-99) mg/dl POC Glucose 112 H 103 H 136 H (70-99) Estimat Average Glucose mg/dl Hemoglobin A1c (4.5-5.6) % Calcium (8.5-10.1) mg/dl Phosphorus (2.5-4.9) mg/dl Magnesium (1.8-2.4) mg/dl Troponin I (0-0.045) ng/ml Albumin (3.4-5.0) gm/dl TSH (0.300-4.500) uIu/ml Urine Color Urine Appearance (Clear) Urine pH (4.5-7.5) Ur Specific [place] (1.000-1.030) Urine Protein (Negative) Urine Glucose (UA) (Negative) Urine Ketones (Negative) Urine Blood (Negative) Urine Nitrite (Negative) Urine Bilirubin (Negative) Urine Urobilinogen (Negative) Ur Leukocyte Esterase (Negative) Blood Type Antibody Screen 07/21/18 07/21/18 07/22/18 Range/Units 19:07 20:37 02:57 WBC 17.38 H (4.8-10.8) K/uL RBC 4.04 L (4.2-5.4) M/uL Hgb 11.7 L (12.0-16.0) g/dL Hct 35.5 L (37-47) % MCV 87.9 (80-100) fL MCH 29.0 (25-34) pg MCHC 33.0 (32-36) g/dL RDW Std Deviation 45.5 (36.4-46.3) fL RDW Coeff of Antonino 14.2 (11.5-14.5) % Plt Count 278 (130-400) K/uL MPV 8.9 (7.4-10.4) fL Immature Gran % (Auto) % Neut % (Auto) % Lymph % (Auto) % Summers % (Auto) % Eos % (Auto) % Baso % (Auto) % Immature Gran # (Auto) (0.00-0.02) K/uL Neut # (Auto) (1.4-6.5) K/uL Lymph # (Auto) (1.2-3.4) K/uL Summers # (Auto) (0.11-0.59) K/uL Eos # (Auto) (0-0.5) K/uL Baso # (Auto) (0-0.2) K/uL PT (9.0-12.0) Seconds INR (0.9-1.1) APTT (21.0-31.0) Seconds PTT Ratio Sodium (136-145) mmol/L Potassium (3.5-5.1) mmol/L Chloride (98-107) mmol/L Carbon Dioxide (21-32) mmol/L Anion Gap (3-11) BUN (7-18) mg/dl Creatinine (0.6-1.2) mg/dl Est Cr Clr Drug Dosing ml/min Est GFR ( Amer) Est GFR (Non-Af Amer) BUN/Creatinine Ratio (10-20) Glucose (70-99) mg/dl POC Glucose 141 H (70-99) Estimat Average Glucose mg/dl Hemoglobin A1c (4.5-5.6) % Calcium (8.5-10.1) mg/dl Phosphorus (2.5-4.9) mg/dl Magnesium (1.8-2.4) mg/dl Troponin I < 0.015 (0-0.045) ng/ml Albumin (3.4-5.0) gm/dl TSH (0.300-4.500) uIu/ml Urine Color Urine Appearance (Clear) Urine pH (4.5-7.5) Ur Specific [place] (1.000-1.030) Urine Protein (Negative) Urine Glucose (UA) (Negative) Urine Ketones (Negative) Urine Blood (Negative) Urine Nitrite (Negative) Urine Bilirubin (Negative) Urine Urobilinogen (Negative) Ur Leukocyte Esterase (Negative) Blood Type Antibody Screen 07/22/18 07/22/18 07/22/18 Range/Units 02:57 02:57 08:10 WBC (4.8-10.8) K/uL RBC (4.2-5.4) M/uL Hgb (12.0-16.0) g/dL Hct (37-47) % MCV (80-100) fL MCH (25-34) pg MCHC (32-36) g/dL RDW Std Deviation (36.4-46.3) fL RDW Coeff of Antonino (11.5-14.5) % Plt Count (130-400) K/uL MPV (7.4-10.4) fL Immature Gran % (Auto) % Neut % (Auto) % Lymph % (Auto) % Summers % (Auto) % Eos % (Auto) % Baso % (Auto) % Immature Gran # (Auto) (0.00-0.02) K/uL Neut # (Auto) (1.4-6.5) K/uL Lymph # (Auto) (1.2-3.4) K/uL Summers # (Auto) (0.11-0.59) K/uL Eos # (Auto) (0-0.5) K/uL Baso # (Auto) (0-0.2) K/uL PT (9.0-12.0) Seconds INR (0.9-1.1) APTT (21.0-31.0) Seconds PTT Ratio Sodium 138 (136-145) mmol/L Potassium 3.7 (3.5-5.1) mmol/L Chloride 107 (98-107) mmol/L Carbon Dioxide 25 (21-32) mmol/L Anion Gap 6.0 (3-11) BUN 21 H (7-18) mg/dl Creatinine 1.09 (0.6-1.2) mg/dl Est Cr Clr Drug Dosing 65.2 ml/min Est GFR ( Amer) 60.0 Est GFR (Non-Af Amer) 51.8 BUN/Creatinine Ratio 19.1 (10-20) Glucose 151 H (70-99) mg/dl POC Glucose 127 H (70-99) Estimat Average Glucose mg/dl Hemoglobin A1c (4.5-5.6) % Calcium 8.2 L (8.5-10.1) mg/dl Phosphorus (2.5-4.9) mg/dl Magnesium (1.8-2.4) mg/dl Troponin I < 0.015 (0-0.045) ng/ml Albumin (3.4-5.0) gm/dl TSH (0.300-4.500) uIu/ml Urine Color Urine Appearance (Clear) Urine pH (4.5-7.5) Ur Specific [place] (1.000-1.030) Urine Protein (Negative) Urine Glucose (UA) (Negative) Urine Ketones (Negative) Urine Blood (Negative) Urine Nitrite (Negative) Urine Bilirubin (Negative) Urine Urobilinogen (Negative) Ur Leukocyte Esterase (Negative) Blood Type Antibody Screen 07/22/18 07/22/18 07/22/18 Range/Units 10:45 10:45 12:10 WBC (4.8-10.8) K/uL RBC (4.2-5.4) M/uL Hgb (12.0-16.0) g/dL Hct (37-47) % MCV (80-100) fL MCH (25-34) pg MCHC (32-36) g/dL RDW Std Deviation (36.4-46.3) fL RDW Coeff of Antonino (11.5-14.5) % Plt Count (130-400) K/uL MPV (7.4-10.4) fL Immature Gran % (Auto) % Neut % (Auto) % Lymph % (Auto) % Summers % (Auto) % Eos % (Auto) % Baso % (Auto) % Immature Gran # (Auto) (0.00-0.02) K/uL Neut # (Auto) (1.4-6.5) K/uL Lymph # (Auto) (1.2-3.4) K/uL Summers # (Auto) (0.11-0.59) K/uL Eos # (Auto) (0-0.5) K/uL Baso # (Auto) (0-0.2) K/uL PT (9.0-12.0) Seconds INR (0.9-1.1) APTT (21.0-31.0) Seconds PTT Ratio Sodium (136-145) mmol/L Potassium (3.5-5.1) mmol/L Chloride (98-107) mmol/L Carbon Dioxide (21-32) mmol/L Anion Gap (3-11) BUN (7-18) mg/dl Creatinine (0.6-1.2) mg/dl Est Cr Clr Drug Dosing ml/min Est GFR ( Amer) Est GFR (Non-Af Amer) BUN/Creatinine Ratio (10-20) Glucose (70-99) mg/dl POC Glucose 105 H (70-99) Estimat Average Glucose mg/dl Hemoglobin A1c (4.5-5.6) % Calcium (8.5-10.1) mg/dl Phosphorus 3.1 (2.5-4.9) mg/dl Magnesium 1.9 (1.8-2.4) mg/dl Troponin I < 0.015 (0-0.045) ng/ml Albumin (3.4-5.0) gm/dl TSH (0.300-4.500) uIu/ml Urine Color Urine Appearance (Clear) Urine pH (4.5-7.5) Ur Specific [place] (1.000-1.030) Urine Protein (Negative) Urine Glucose (UA) (Negative) Urine Ketones (Negative) Urine Blood (Negative) Urine Nitrite (Negative) Urine Bilirubin (Negative) Urine Urobilinogen (Negative) Ur Leukocyte Esterase (Negative) Blood Type Antibody Screen 07/22/18 07/22/18 07/23/18 Range/Units 16:50 20:46 05:38 WBC (4.8-10.8) K/uL RBC (4.2-5.4) M/uL Hgb (12.0-16.0) g/dL Hct (37-47) % MCV (80-100) fL MCH (25-34) pg MCHC (32-36) g/dL RDW Std Deviation (36.4-46.3) fL RDW Coeff of Antonino (11.5-14.5) % Plt Count (130-400) K/uL MPV (7.4-10.4) fL Immature Gran % (Auto) % Neut % (Auto) % Lymph % (Auto) % Summers % (Auto) % Eos % (Auto) % Baso % (Auto) % Immature Gran # (Auto) (0.00-0.02) K/uL Neut # (Auto) (1.4-6.5) K/uL Lymph # (Auto) (1.2-3.4) K/uL Summers # (Auto) (0.11-0.59) K/uL Eos # (Auto) (0-0.5) K/uL Baso # (Auto) (0-0.2) K/uL PT (9.0-12.0) Seconds INR (0.9-1.1) APTT (21.0-31.0) Seconds PTT Ratio Sodium 144 (136-145) mmol/L Potassium 3.7 (3.5-5.1) mmol/L Chloride 111 H (98-107) mmol/L Carbon Dioxide 27 (21-32) mmol/L Anion Gap 6.0 (3-11) BUN 22 H (7-18) mg/dl Creatinine 1.03 (0.6-1.2) mg/dl Est Cr Clr Drug Dosing 70.2 ml/min Est GFR ( Amer) 64.2 Est GFR (Non-Af Amer) 55.4 BUN/Creatinine Ratio 21.4 H (10-20) Glucose 94 (70-99) mg/dl POC Glucose 109 H 98 (70-99) Estimat Average Glucose mg/dl Hemoglobin A1c (4.5-5.6) % Calcium 8.5 (8.5-10.1) mg/dl Phosphorus 3.5 (2.5-4.9) mg/dl Magnesium 2.0 (1.8-2.4) mg/dl Troponin I (0-0.045) ng/ml Albumin (3.4-5.0) gm/dl TSH 2.170 (0.300-4.500) uIu/ml Urine Color Urine Appearance (Clear) Urine pH (4.5-7.5) Ur Specific [place] (1.000-1.030) Urine Protein (Negative) Urine Glucose (UA) (Negative) Urine Ketones (Negative) Urine Blood (Negative) Urine Nitrite (Negative) Urine Bilirubin (Negative) Urine Urobilinogen (Negative) Ur Leukocyte Esterase (Negative) Blood Type Antibody Screen 07/23/18 07/23/18 07/23/18 Range/Units 07:40 09:55 11:31 WBC 13.15 H (4.8-10.8) K/uL RBC 3.83 L (4.2-5.4) M/uL Hgb 11.1 L (12.0-16.0) g/dL Hct 33.9 L (37-47) % MCV 88.5 (80-100) fL MCH 29.0 (25-34) pg MCHC 32.7 (32-36) g/dL RDW Std Deviation 47.9 H (36.4-46.3) fL RDW Coeff of Antonino 14.8 H (11.5-14.5) % Plt Count 280 (130-400) K/uL MPV 9.1 (7.4-10.4) fL Immature Gran % (Auto) 0.2 % Neut % (Auto) 58.2 % Lymph % (Auto) 26.1 % Summers % (Auto) 11.9 % Eos % (Auto) 3.2 % Baso % (Auto) 0.4 % Immature Gran # (Auto) 0.03 H (0.00-0.02) K/uL Neut # (Auto) 7.66 H (1.4-6.5) K/uL Lymph # (Auto) 3.43 H (1.2-3.4) K/uL Summers # (Auto) 1.56 H (0.11-0.59) K/uL Eos # (Auto) 0.42 (0-0.5) K/uL Baso # (Auto) 0.05 (0-0.2) K/uL PT (9.0-12.0) Seconds INR (0.9-1.1) APTT (21.0-31.0) Seconds PTT Ratio Sodium (136-145) mmol/L Potassium (3.5-5.1) mmol/L Chloride (98-107) mmol/L Carbon Dioxide (21-32) mmol/L Anion Gap (3-11) BUN (7-18) mg/dl Creatinine (0.6-1.2) mg/dl Est Cr Clr Drug Dosing ml/min Est GFR ( Amer) Est GFR (Non-Af Amer) BUN/Creatinine Ratio (10-20) Glucose (70-99) mg/dl POC Glucose 105 H 100 H (70-99) Estimat Average Glucose mg/dl Hemoglobin A1c (4.5-5.6) % Calcium (8.5-10.1) mg/dl Phosphorus (2.5-4.9) mg/dl Magnesium (1.8-2.4) mg/dl Troponin I (0-0.045) ng/ml Albumin (3.4-5.0) gm/dl TSH (0.300-4.500) uIu/ml Urine Color Urine Appearance (Clear) Urine pH (4.5-7.5) Ur Specific [place] (1.000-1.030) Urine Protein (Negative) Urine Glucose (UA) (Negative) Urine Ketones (Negative) Urine Blood (Negative) Urine Nitrite (Negative) Urine Bilirubin (Negative) Urine Urobilinogen (Negative) Ur Leukocyte Esterase (Negative) Blood Type Antibody Screen 07/23/18 07/23/18 07/24/18 Range/Units 16:00 20:09 08:43 WBC (4.8-10.8) K/uL RBC (4.2-5.4) M/uL Hgb (12.0-16.0) g/dL Hct (37-47) % MCV (80-100) fL MCH (25-34) pg MCHC (32-36) g/dL RDW Std Deviation (36.4-46.3) fL RDW Coeff of Antonino (11.5-14.5) % Plt Count (130-400) K/uL MPV (7.4-10.4) fL Immature Gran % (Auto) % Neut % (Auto) % Lymph % (Auto) % Summers % (Auto) % Eos % (Auto) % Baso % (Auto) % Immature Gran # (Auto) (0.00-0.02) K/uL Neut # (Auto) (1.4-6.5) K/uL Lymph # (Auto) (1.2-3.4) K/uL Summers # (Auto) (0.11-0.59) K/uL Eos # (Auto) (0-0.5) K/uL Baso # (Auto) (0-0.2) K/uL PT (9.0-12.0) Seconds INR (0.9-1.1) APTT (21.0-31.0) Seconds PTT Ratio Sodium (136-145) mmol/L Potassium (3.5-5.1) mmol/L Chloride (98-107) mmol/L Carbon Dioxide (21-32) mmol/L Anion Gap (3-11) BUN (7-18) mg/dl Creatinine (0.6-1.2) mg/dl Est Cr Clr Drug Dosing ml/min Est GFR ( Amer) Est GFR (Non-Af Amer) BUN/Creatinine Ratio (10-20) Glucose (70-99) mg/dl POC Glucose 93 101 H 164 H (70-99) Estimat Average Glucose mg/dl Hemoglobin A1c (4.5-5.6) % Calcium (8.5-10.1) mg/dl Phosphorus (2.5-4.9) mg/dl Magnesium (1.8-2.4) mg/dl Troponin I (0-0.045) ng/ml Albumin (3.4-5.0) gm/dl TSH (0.300-4.500) uIu/ml Urine Color Urine Appearance (Clear) Urine pH (4.5-7.5) Ur Specific [place] (1.000-1.030) Urine Protein (Negative) Urine Glucose (UA) (Negative) Urine Ketones (Negative) Urine Blood (Negative) Urine Nitrite (Negative) Urine Bilirubin (Negative) Urine Urobilinogen (Negative) Ur Leukocyte Esterase (Negative) Blood Type Antibody Screen 07/24/18 Range/Units 11:15 WBC (4.8-10.8) K/uL RBC (4.2-5.4) M/uL Hgb (12.0-16.0) g/dL Hct (37-47) % MCV (80-100) fL MCH (25-34) pg MCHC (32-36) g/dL RDW Std Deviation (36.4-46.3) fL RDW Coeff of Antonino (11.5-14.5) % Plt Count (130-400) K/uL MPV (7.4-10.4) fL Immature Gran % (Auto) % Neut % (Auto) % Lymph % (Auto) % Summers % (Auto) % Eos % (Auto) % Baso % (Auto) % Immature Gran # (Auto) (0.00-0.02) K/uL Neut # (Auto) (1.4-6.5) K/uL Lymph # (Auto) (1.2-3.4) K/uL Summers # (Auto) (0.11-0.59) K/uL Eos # (Auto) (0-0.5) K/uL Baso # (Auto) (0-0.2) K/uL PT (9.0-12.0) Seconds INR (0.9-1.1) APTT (21.0-31.0) Seconds PTT Ratio Sodium (136-145) mmol/L Potassium (3.5-5.1) mmol/L Chloride (98-107) mmol/L Carbon Dioxide (21-32) mmol/L Anion Gap (3-11) BUN (7-18) mg/dl Creatinine (0.6-1.2) mg/dl Est Cr Clr Drug Dosing ml/min Est GFR ( Amer) Est GFR (Non-Af Amer) BUN/Creatinine Ratio (10-20) Glucose (70-99) mg/dl POC Glucose 97 (70-99) Estimat Average Glucose mg/dl Hemoglobin A1c (4.5-5.6) % Calcium (8.5-10.1) mg/dl Phosphorus (2.5-4.9) mg/dl Magnesium (1.8-2.4) mg/dl Troponin I (0-0.045) ng/ml Albumin (3.4-5.0) gm/dl TSH (0.300-4.500) uIu/ml Urine Color Urine Appearance (Clear) Urine pH (4.5-7.5) Ur Specific [place] (1.000-1.030) Urine Protein (Negative) Urine Glucose (UA) (Negative) Urine Ketones (Negative) Urine Blood (Negative) Urine Nitrite (Negative) Urine Bilirubin (Negative) Urine Urobilinogen (Negative) Ur Leukocyte Esterase (Negative) Blood Type Antibody Screen (2) Atrial fibrillation: Total Time Total Time Spent Total Time Spent (In Minutes): 20 Discharge Plan Discharge Items Patient Disposition: Home - Home Health Services Reason For Visit: Unilateral Primary Osteoarthritis, Right Knee Discharge Diagnosis: Right knee osteoarthritis A-fib Discharge Goals: Decrease discomfort and Improve function Activity: Per 'Additional Instructions' section Non-emergency contact: Surgeon and Air Table Operator Call non-emergency contact if: you have any medication questions, your pain is not controlled, your pain is concerning for you, you have a fever, your temperature is above 101, your wound has increased redness and your wound has increased drainage Follow-up/Referrals: Bret Zavala MD [Physician] - (Please see Dr. Zavala in 3-4 weeks for follow up of your heart rhythm.) Sheila Acosta CRNP [Primary Care Provider] - 07/28/18 11:00 am (Please, follow up with Sheila AUGUST on TuesdayJuly 28 at 11:00 am. *If you need to change this appointment, call the office at [phone].) Diet: Carb Consistent or DM2 Addtl Provider Instructions: ACTIVITY RECOMMENDATIONS: SELF CARE INSTRUCTIONS AFTER TOTAL KNEE REPLACEMENT A. You may need to continue a physical therapy program after discharge from the hospital. There are several options available to you. Your doctor will assist you in selecting the best one for you. 1. An out-patient facility 2 to 3 times a week for therapy or home therapy. 2. Continue working on all exercises taught to you in the hospital. Your goals should be to increase bending of your knee to 90 degrees and beyond and to fully straighten your knee. B. You may progress at your own pace from walking with a walker or crutches to a cane; then to no assistive devices. C. Make walking a part of your daily routine. Be up as much as comfortable with rest periods throughout the day. Rest with leg elevation is very important. Use the ice wrap frequently for the first 3-4 weeks. D. There are no restrictions on activities. You may ride in a car, shop, participate in corrections unit supervisor and all social activities. E. Wear the long elastic stockings (DEMETRIUS hose) 20 hours a day for 2 weeks after surgery. They can be removed several times a day for laundering and for a bath. F. You may shower, no tub baths until cleared by your doctor. SPECIAL CARE INSTRUCTIONS: VERY IMPORTANT TO READ AND REVIEW A. There are a few signs you need to watch for after you are home. Call [facility] if you notice any of the followin. Increased severe knee pain. Some pain is expected especially when you exercise. 2. Increased swelling in your leg or knee; pain or swelling of the calf muscle in either lower leg. 3. Any fluid drainage from the incision. 4. Shortness of breath or chest pain. B. Please call [facility] at if you have any concerns or questions about your operation or recovery. The doctor or his nurse will return your call promptly. C. You must take antibiotics before dental work, bladder, bowel or other surgery. Your doctor will provide you with a permanent care to carry describing this precaution. IMPORTANT: * REMEMBER TO TAKE ASPIRIN, 81 MG, TWICE DAILY FOR 4 WEEKS UNLESS OTHERWISE DIRECTED. THIS IS YOUR BLOOD THINNER. * HIGH RISK PATIENTS MAY BE PRESCRIBED A STRONGER BLOOD THINNER. THIS WILL BE PROVIDED AT DISCHARGE. * CALL IF INCREASED PAIN, REDNESS, DRAINAGE OR FEVER GREATER THAT 101. * WEAR DEMETRIUS HOSE 20 HOURS PER DAY FOR 2 WEEKS. This is a large suction dressing covering your incision. This will help pull any excess drainage from the wound and allow your incision to heal properly. You may shower with this if you can keep the unit outside of the shower. If any bleeding or leakage is noted please call your doctor's office. This will remain on your incision for 7 days and then should be removed. This can be done yourself or by the home nursing staff if applicable. The entire unit is dis posable once removed. Once removed, keep incision clean and dry. If redness or drainage is noted, please call your surgeon. IF INCISION IS LEAKING THROUGH DRESSING, CALL THE OFFICE . FOLLOW UP VISIT: If appointment is not already scheduled: Please call [facility] to make a follow-up appointment for 2 weeks after your surgery at . Prescriptions: New acetaminophen [Tylenol Extra Strength] 500 mg Tablet 1,000 mg PO Q8H Qty: 60 RF: 0 oxycodone 5 mg Tablet 5 - 10 mg PO .Q4H-6H MDD 6 PRN (Reason: pain) Qty: 30 RF: 0 metoprolol tartrate 25 mg Tablet 25 mg PO BID Qty: 60 RF: 0 Eliquis 5 mg tablet 5 mg PO Q12H Qty: 60 RF: 0 Continued metformin 500 mg Tablet 500 mg PO BID RF: 0 venlafaxine 75 mg Tablet 75 mg PO QPM RF: 0 atorvastatin 10 mg Tablet 10 mg PO QPM RF: 0 clonazepam 1 mg Tablet 1 mg PO HS RF: 0 omeprazole 40 mg Capsule,Delayed Release(Dr/Ec) 40 mg PO QAM RF: 0 losartan-hydrochlorothiazide 100-25 mg Tablet 1 tab PO QAM RF: 0 venlafaxine 37.5 mg Tablet 37.5 mg PO QPM RF: 0 calcium carbonate [Tums] 200 mg calcium (500 mg) Tablet,Chewable 500 mg PO QAM RF: 0 fluocinonide 0.05 % Cream 1 applic TOPICAL UD PRN (Reason: Dry Skin) RF: 0 fluticasone propionate 50 mcg/actuation [place],Suspension 1 spray INTRANASAL DAILY PRN (Reason: Nasal Congestion) RF: 0 cholecalciferol (vitamin D3) [Vitamin D3] 2,000 unit Capsule 2,000 unit PO QAM RF: 0 Ocuvite Adult 50 Plus 250-5-1 mg Capsule 1 cap PO QAM RF: 0 apple cider vinegar 500 mg Tablet 500 mg PO DAILY RF: 0 Discontinued diclofenac sodium [Voltaren] 1 % Gel 2 g TOPICAL QID PRN (Reason: Pain) RF: 0 Stand-Alone Forms: [facility] Discharge Orders: Discharge Order (Routine); Ordered 07/24/18 Ordered By: Johann Perez Admission Data Admit Date/Time: 07/21/18 14:50 Attending Provider: Ashok Ross Admit Provider: Ashok Ross Primary Care Provider: Sheila Acosta I Other Providers: Bret Zavala ; Garrett Cesar Service: Telemetry Other Interventions: Discharge Summary Assessment (RN) Last Done: 07/24/18 13:42 DC Date/Time DO NOT enter until pt leaves facility: 07/24/18 14:35
== END 2018-07-24 14:35 | disposition home health service (06) | DRG 470 ==
LOC: ASU 10:39 → 2N 14:50 → 2S 07-22 18:38
DX: Z79.899 Other long term (current) drug therapy; K21.9 Gastro-esophageal reflux disease without esophagitis; F32.9 Major depressive disorder, single episode, unspecified; Z88.2 Allergy status to sulfonamides; I10 Essential (primary) hypertension; M17.11 Unilateral primary osteoarthritis, right knee; I45.10 Unspecified right bundle-branch block; E11.9 Type 2 diabetes mellitus without complications; Z88.0 Allergy status to penicillin; G47.33 Obstructive sleep apnea (adult) (pediatric); I47.2 Ventricular tachycardia; Z88.8 Allergy status to other drugs, medicaments and biological substances; Z88.1 Allergy status to other antibiotic agents; I49.1 Atrial premature depolarization; I48.91 Unspecified atrial fibrillation; Z87.828 Personal history of other (healed) physical injury and trauma; Z79.84 Long term (current) use of oral hypoglycemic drugs; R00.0 Tachycardia, unspecified

== ENCOUNTER 2021-06-18 10:40 | Observation (INO) ==
--- NOTE | 2021-06-08 11:55 | Anesthesiology Consultation ---
Date of Service June 08, 2021 Assessment & Plan (1) Encounter for pre-operative examination: Chart Review Chart Review: Acceptable Risk for Surgery (pending preop Covid testing results ) and Patient NOT seen in Pre Admission Testing Pt initially scheduled for surgery 02/26/21- rescheduled to 06/18/21 - Check coags AM DOS - Check BSG AM DOS Per Anticoagulation Clinic instructions scanned 06/01/21= Hold Coumadin starting 06/12/21- will check INR 06/18/21- DOS 06/18/21. Per nursing assessment 05/31/2021, patient denies any recent travel. Only wears mask when required. No known Covid infection in the past 90 days. Patient is fully vaccinated for Covid. No known Covid positive exposures or Covid related symptoms. Preop Covid testing scheduled 06/16/21= will await results -PCP office visit (02/04/21): "Pre-op for shoulder Replacement..Agree pt is appropriate for scheduled surgery.. No further Cardiac testing at this time. RCRI 0.. depression continue current medications, hoping for improvement with recovery and added mobility/activity.. 3-6 followed by Cardiology, no change in meds. Walks regularly 1.5 miles with no symptoms.. stable with most recent A1C 6.5, no insulin hx. controlled with metformin. stable kidney function." -Cardiology office visit (06/17/20): "Atrial fibrillation.. No clinical recurrence. No symptoms. she may have episodes of atrial fibrillation which are asymptomatic. This is not a clinical concern in the absence of documented high heart rates or symptoms. She is on appropriate anticoagulation with warfarin. We did discuss the option for a novel oral anticoagulant, she has inquired with her insurer previously and the cost is prohibitive.. Dyspnea.. Only mild in associated with at ascending hills. Fair exercise tolerance without concerning cardiac symptoms.. HTN (hypertension).. She appears to have good blood pressure control on her current medical regimen."F/U one year recommended. History Surgery Operation Date: 06/18/21 08:15 Proposed Procedures p Right Reversed Total Shoulder Arthroplasty - Daron Grant M.D. Height/Weight Height: 5 ft 7 in Weight: 120.202 kg Allergies Allergy/AdvReac Type Severity Reaction Status Date / Time cocoa butter Allergy Severe Rash Verified 06/08/21 09:38 [From Preparation H] glycerin [From Preparation H] Allergy Severe Rash Verified 06/08/21 09:38 mineral oil Allergy Severe Rash Verified 06/08/21 09:38 [From Preparation H] petrolatum,white Allergy Severe Rash Verified 06/08/21 09:38 [From Preparation H] phenylephrine Allergy Severe Rash Verified 06/08/21 09:38 [From Preparation H] Bactrim Allergy Intermediate BROKE OUT Verified 04/05/16 14:42 IN HIVES shark liver oil Allergy Intermediate Redness, Verified 06/08/21 09:38 itching, swelling sulfamethoxazole Allergy Intermediate Hives Verified 06/08/21 09:38 trimethoprim Allergy Intermediate Hives Verified 06/08/21 09:38 Yeast Allergy Intermediate Redness, Verified 06/08/21 09:38 itching, swelling chlorhexidine Allergy Unknown INCLUDES Verified 06/08/21 09:59 SOME OF SAME INGREDIENTS PREP H clavulanic acid Allergy Unknown Unknown Verified 06/08/21 09:38 [From Augmentin] raloxifene Allergy Unknown Unknown Verified 06/08/21 09:38 amoxicillin AdvReac Intermediate C. diff Verified 06/08/21 09:38 azithromycin [From Zithromax] AdvReac Mild N/V Verified 06/08/21 09:38 benzonatate AdvReac Mild Vomiting Verified 06/08/21 09:38 [From Tessalon Perles] lisinopril AdvReac Mild Dry cough Verified 06/08/21 09:38 ropinirole AdvReac Unknown Unable to Verified 06/08/21 09:38 tolerate Medications Home Medications Medication Instructions Recorded Confirmed Last Taken apple cider vinegar 500 mg tablet 500 mg PO BID 07/05/18 06/08/21 05/28/19 fluticasone propionate 50 1 spray INTRANASAL DAILY PRN #18.2 10/30/18 06/08/21 05/26/19 mcg/actuation nasal gm spray,suspension melatonin 5 mg tablet 5 mg PO HS 11/03/18 06/08/21 05/28/19 vit C,E,zinc,copper-[id number] 250 1 cap PO QAM 11/06/18 06/08/21 05/28/19 mg-lutein 5 mg-zeaxanthin 1 mg capsule (Ocuvite Adult 50 Plus) calcium carbonate 200 mg calcium 200 mg PO QAM 11/27/18 06/08/21 05/28/19 (500 mg) chewable tablet (Tums) cholecalciferol (vitamin D3) 50 2,000 unit PO QAM cap 11/27/18 06/08/21 05/28/19 mcg (2,000 unit) capsule (Vitamin D3) CPAP Machine #1 ea 01/08/19 05/19/21 Unknown warfarin 2 mg tablet See Rx Instructions PO UD #130 tab 07/28/20 06/08/21 Unknown hydrochlorothiazide 25 mg tablet 25 mg PO QAM #90 tab 10/27/20 06/08/21 Unknown losartan 100 mg tablet 100 mg PO QAM #90 tab 10/27/20 06/08/21 Unknown omeprazole 40 mg capsule,delayed 40 mg PO QAM #90 cap 01/06/21 06/08/21 Unknown release metformin 500 mg tablet 500 mg PO BID #180 tab 01/09/21 06/08/21 Unknown venlafaxine 37.5 mg 37.5 mg PO PM #90 cap 01/22/21 06/08/21 Unknown capsule,extended release 24 hr (Effexor XR) multivitamin (One Daily 1 tab PO QAM 02/04/21 06/08/21 Unknown Multivitamin) metoprolol tartrate 25 mg tablet 25 mg PO BID #180 tab 02/12/21 06/08/21 Unknown acetaminophen 500 mg tablet 500 mg PO BID PRN tab 03/16/21 06/08/21 Unknown (Tylenol Extra Strength) atorvastatin 10 mg tablet 10 mg PO QPM #90 tab 03/17/21 06/08/21 Unknown carboxymethylcellulose sodium 0.5 1 drp OPHTHALMIC (EYE) HS 04/14/21 06/08/21 Unknown % eye drops (Refresh Tears) venlafaxine 75 mg capsule,extended 75 mg PO QPM #90 cap 04/17/21 06/08/21 Unknown release 24 hr (Effexor XR) clonazepam 1 mg tablet 1 mg PO HS #30 tab 05/26/21 06/08/21 Unknown Past Medical History Medical History Atrial fibrillation ON WARFARIN Chronic back pain Crohns disease Stable Depression Diabetes NIDDM GERD (gastroesophageal reflux disease) Gout HTN (hypertension) Insomnia On anticoagulant therapy GENESIS (obstructive sleep apnea) CPAP (compliant) Osteoarthritis Restless legs syndrome (RLS) Treated with Klonopin Tremor Right hand Past Family History Family History Brother FHx: myocardial infarction, Onset Age: 64 Stroke, Onset Age: 64 Family hx colonic polyps Sister Breast cancer Mother Breast cancer Obstructive sleep apnea Arthritis Father Heart disease Family/Other Ovarian cancer Uncle Prostate cancer Other No family history of adverse response to anesthesia Denies family history of Lung cancer Colorectal cancer Past Surgical History Surgical History H/O tubal ligation History of arthroplasty of right knee History of carpal tunnel release R/L History of cataract surgery R/L History of colonoscopy 2019 History of esophagogastroduodenoscopy (EGD) History of surgery on left wrist For cyst History of tonsillectomy S/P foot surgery, right Lentz fracture repair Social History Smoking Status: Never smoker Do You Dip or Chew Tobacco: No Hx Alcohol Use: No Hx Substance Use: No substance use type: does not use Lab Results Anesthesia Preop Results Results Anesthesia Widget: WBC 9.36 K/uL (4.8-10.8) 05/19/21 Hgb 12.7 g/dL (12.0-16.0) 05/19/21 Hct 38.4 % (37-47) 05/19/21 Plt 398 K/uL (130-400) 05/19/21 Na 139 mmol/L (136-145) 05/19/21 K 4.0 mmol/L (3.5-5.1) 05/19/21 Cl 102 mmol/L (98-107) 05/19/21 CO2 30 mmol/L (21-32) 05/19/21 BUN 25 mg/dl (6-23) H 05/19/21 Creat 0.90 mg/dl (0.6-1.2) 05/19/21 Glucose Level 98 mg/dl (70-99(Fasting)) 05/19/21 PT 27.8 Seconds (9.0-12.0) H 05/19/21 PTT 52.7 Seconds (21.0-31.0) H* 05/19/21 INR 2.8 (0.9-1.1) H 05/19/21 HA1c 6.6 % (4.5-5.6) H 05/19/21 Urine Color Yellow 05/19/21 Urine Appearance Clear (Clear) 05/19/21 Urine pH 5.5 (4.5-7.5) 05/19/21 Urine Specific Mcdaniel 1.013 (1.000-1.030) 05/19/21 Urine Protein Negative (Negative) 05/19/21 Urine Glucose (UA) Negative (Negative) 05/19/21 Urine Ketones Negative (Negative) 05/19/21 Urine Blood 1+ (Negative) H 05/19/21 Urine Nitrite Negative (Negative) 05/19/21 Urine Bilirubin Negative (Negative) 05/19/21 Urine Urobilinogen Negative (Negative) 05/19/21 Urine Leukocyte Esterase Negative (Negative) 05/19/21 Urine WBC (Auto) 1-5 /hpf (0-5) 05/19/21 Urine RBC (Auto) 5-10 /hpf (0-4) H 05/19/21 Urine Hyaline Casts (Auto) 0 /lpf (0-5) 05/19/21 Urine Epithelial Cells (Auto) 5-10 /lpf (0-5) H 05/19/21 Urine Bacteria (Auto) Negative (Negative) 05/19/21 Testing Electrocardiogram Date: 01/29/21 NSR at 64bpm. RBBB with repolarization abnormality. When compared to EKG from July 23, 2018- no significant change per cardio Chest X-Ray Date: 01/29/21 Findings: + NAD Echocardiogram Date: 07/23/18 EF 50-55%. No regional motion abnormality. No significant valvular disease.
--- NOTE | 2021-06-17 09:18 | History & Physical Report ---
Date of Service June 17, 2021 Assessment & Plan (1) Primary osteoarthritis, right shoulder: Plan: She again has severe glenohumeral joint arthritis in her right shoulder, and has failed a course of conservative treatment including to steroid injections so far. She has gotten minimal improvement in her pain from these injections. She would like to proceed with shoulder replacement surgery, I think this is reasonable. We will have to wait until after February 05 to do her surgery due to her injection on November 05. We extensively discussed anatomic versus reverse total shoulder arthroplasty as the best treatment option for her. Her rotator cuff is largely intact, but she has a small full-thickness rotator cuff tear with a large calcium deposit and underlying large subchondral cyst, as well as a type III acromion. I am worried that if we tried an anatomic total shoulder, this rotator cuff tear may enlarge with time, and this would require revision to a reverse total shoulder. We mutually decided to proceed immediately to the reverse total shoulder with more predictable results. Risks, benefits, and alternatives of surgery were explained in detail. The surgical procedure, as well as postoperative recovery and rehabilitation, was also explained in detail. Risks include bleeding; infection; damage to surrounding structures such as nerves, blood vessels, and tendons that run in the area; persistent pain or stiffness; hardware failure; dislocation; brachial plexus palsy; blood clots; or need for further surgery. The patient understands all of this and wishes to proceed with surgery. Preoperative workup was completed today, and informed consent was obtained. History of Present Illness Chief Complaint: Right shoulder pain Primary Care Provider: Miguel Hurtado DO Ms. Padron returns for her right shoulder. Again, she is a 70-year-old female with right shoulder pain and decreased range of motion over many years with progressive worsening. This not related to any specific injury. This is gradually worsened over many years. She did not notice any improvement with a course of physical therapy. I initially saw her for this in February 2020, diagnosed her with severe glenohumeral joint arthritis, and gave her a shoulder joint steroid injection as first-line treatment for this. She notes partial improvement of her pain for several months. I repeated her injection on November 05. She reports that this gave her minimal improvement in her pain, and she called in to start the process for shoulder replacement surgery. We got her set up with an MRI to evaluate the integrity of her rotator cuff. She returns today for the results of this. Of note, she is on Coumadin for atrial fibrillation. She has had a colonoscopy in the past and stopped her Coumadin without bridge therapy. She has already talked to her applied mathematician about shoulder replacement surgery. Allergies Allergy/AdvReac Type Severity Reaction Status Date / Time cocoa butter Allergy Severe Rash Verified 06/08/21 09:38 [From Preparation H] glycerin [From Preparation H] Allergy Severe Rash Verified 06/08/21 09:38 mineral oil Allergy Severe Rash Verified 06/08/21 09:38 [From Preparation H] petrolatum,white Allergy Severe Rash Verified 06/08/21 09:38 [From Preparation H] phenylephrine Allergy Severe Rash Verified 06/08/21 09:38 [From Preparation H] Bactrim Allergy Intermediate BROKE OUT Verified 04/05/16 14:42 IN HIVES shark liver oil Allergy Intermediate Redness, Verified 06/08/21 09:38 itching, swelling sulfamethoxazole Allergy Intermediate Hives Verified 06/08/21 09:38 trimethoprim Allergy Intermediate Hives Verified 06/08/21 09:38 Yeast Allergy Intermediate Redness, Verified 06/08/21 09:38 itching, swelling chlorhexidine Allergy Unknown INCLUDES Verified 06/08/21 09:59 SOME OF SAME INGREDIENTS PREP H clavulanic acid Allergy Unknown Unknown Verified 06/08/21 09:38 [From Augmentin] raloxifene Allergy Unknown Unknown Verified 06/08/21 09:38 amoxicillin AdvReac Intermediate C. diff Verified 06/08/21 09:38 azithromycin [From Zithromax] AdvReac Mild N/V Verified 06/08/21 09:38 benzonatate AdvReac Mild Vomiting Verified 06/08/21 09:38 [From Tessalon Perles] lisinopril AdvReac Mild Dry cough Verified 06/08/21 09:38 ropinirole AdvReac Unknown Unable to Verified 06/08/21 09:38 tolerate Home Medications Medication Instructions Recorded Confirmed Type apple cider vinegar 500 mg tablet 500 mg PO BID 07/05/18 06/11/21 History fluticasone propionate 50 1 spray INTRANASAL DAILY PRN #18.2 10/30/18 06/11/21 Rx mcg/actuation nasal gm spray,suspension melatonin 5 mg tablet 5 mg PO HS 11/03/18 06/11/21 History vit C,E,zinc,copper-[id number] 250 1 cap PO QAM 11/06/18 06/11/21 History mg-lutein 5 mg-zeaxanthin 1 mg capsule (Ocuvite Adult 50 Plus) calcium carbonate 200 mg calcium 200 mg PO QAM 11/27/18 06/11/21 History (500 mg) chewable tablet (Tums) cholecalciferol (vitamin D3) 50 2,000 unit PO QAM cap 11/27/18 06/11/21 History mcg (2,000 unit) capsule (Vitamin D3) CPAP Machine #1 ea 01/08/19 06/11/21 Rx warfarin 2 mg tablet See Rx Instructions PO UD #130 tab 07/28/20 06/11/21 Rx hydrochlorothiazide 25 mg tablet 25 mg PO QAM #90 tab 10/27/20 06/11/21 Rx losartan 100 mg tablet 100 mg PO QAM #90 tab 10/27/20 06/11/21 Rx omeprazole 40 mg capsule,delayed 40 mg PO QAM #90 cap 01/06/21 06/11/21 Rx release metformin 500 mg tablet 500 mg PO BID #180 tab 01/09/21 06/11/21 Rx venlafaxine 37.5 mg 37.5 mg PO PM #90 cap 01/22/21 06/11/21 Rx capsule,extended release 24 hr (Effexor XR) multivitamin (One Daily 1 tab PO QAM 02/04/21 06/11/21 History Multivitamin) metoprolol tartrate 25 mg tablet 25 mg PO BID #180 tab 02/12/21 06/11/21 Rx acetaminophen 500 mg tablet 500 mg PO BID PRN tab 03/16/21 06/11/21 History (Tylenol Extra Strength) atorvastatin 10 mg tablet 10 mg PO QPM #90 tab 03/17/21 06/11/21 Rx carboxymethylcellulose sodium 0.5 1 drp OPHTHALMIC (EYE) HS 04/14/21 06/11/21 History % eye drops (Refresh Tears) venlafaxine 75 mg capsule,extended 75 mg PO QPM #90 cap 04/17/21 06/11/21 Rx release 24 hr (Effexor XR) clonazepam 1 mg tablet 1 mg PO HS #30 tab 05/26/21 06/11/21 Rx Past Med/Surg History Medical History Atrial fibrillation ON WARFARIN Chronic back pain Crohns disease Stable Depression Diabetes NIDDM GERD (gastroesophageal reflux disease) Gout HTN (hypertension) Insomnia On anticoagulant therapy GENESIS (obstructive sleep apnea) CPAP (compliant) Osteoarthritis Restless legs syndrome (RLS) Treated with Klonopin Tremor Right hand Surgical History H/O tubal ligation History of arthroplasty of right knee History of carpal tunnel release R/L History of cataract surgery R/L History of colonoscopy 2019 History of esophagogastroduodenoscopy (EGD) History of surgery on left wrist For cyst History of tonsillectomy S/P foot surgery, right Lentz fracture repair Family History Brother FHx: myocardial infarction, Onset Age: 64 Stroke, Onset Age: 64 Family hx colonic polyps Sister Breast cancer Mother Breast cancer Obstructive sleep apnea Arthritis Father Heart disease Family/Other Ovarian cancer Uncle Prostate cancer Other No family history of adverse response to anesthesia Denies family history of Lung cancer Colorectal cancer Social History Smoking Status: Never smoker Second Hand Exposure: No; Hx Alcohol Use: No Hx Substance Use: No Preferred Language: French Communication Ability: Effective Visual Impairment: Limited Hearing Ability: Use of Hearing Aid 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 Rotator cuff strength is well maintained. Results & Data ([facility]) Diagnostic Findings Previous outside x-rays of the right shoulder from January were reviewed. They show severe end-stage glenohumeral joint arthritis with very large osteophyte fo rmation and complete obliteration of the joint space. This does look like primary glenohumeral joint arthritis, but there is a very large calcification at the greater tuberosity insertion of the rotator cuff. MRI of the right shoulder from November 27 was reviewed. They again demonstrate severe glenohumeral joint arthritis with associated degenerative labral fraying. Majority of the rotator cuff tendon looks intact, but she has a very large calcification with an associated full-thickness tear in the anterior aspect of the supraspinatus. There is a very large subchondral cyst in the same area. Very mild fatty atrophy of the supraspinatus muscle belly. She has a type III acromion.
[~2021-06-18 10:40] MED LIST changes: -CeleBREX 200 MG CAP PO SCH; +GABAPENTIN 300 MG CAP PO SCH; -GABAPENTIN 300 MG PO SCH; +LR 15ML/HR IV SCH; -LR 500ML BOLUS, THEN 15ML/HR IV SCH; +METOCLOPRAMIDE HCL 10 MG TABLET PO SCH; -ROPIVACAINE 0.5% 5 MG/ML 30 ML VIAL ONE; -ROPIVACAINE 0.5% HCL/PF 150 MG, BUPIVACAINE 0.5% MPF 30 ML, EPINEPHrine 30MG/30ML (OR U... INFIL SCH; -TRANEXAMIC ACID 1,000 MG **IV Intra-op IV SCH; +VANCOMYCIN HCL 1,750 MG in SODIUM CHLORIDE 0.9% 500 ML IV SCH; +oxyCODONE HCL 10 MG TABCR (OxyCONTIN) PO SCH
[2021-06-18] MEDS ORDERED: fentaNYL citrate 100 MCG/2 ML VIAL ONE (10:57)
[2021-06-18] MEDS ORDERED: MIDAZOLAM HCL 1 MG/ML 2ML VIAL ONE (10:57)
[2021-06-18] MEDS ORDERED: PROPOFOL IV EMULSION 10 MG/ML 20 ML VIAL IV ONE (11:19)
[2021-06-18] MEDS ORDERED: GLYCOPYRROLATE 0.2 MG/ML VIAL ONE (11:19)
[2021-06-18] MEDS ORDERED: ROCURONIUM BROMIDE 10 MG/ML 5 ML VIAL IV ONE (11:19)
[2021-06-18] MEDS ORDERED: ONDANSETRON INJ 2 MG/ML 2 ML VIAL ONE (11:19)
[2021-06-18] MEDS ORDERED: DEXAMETHASONE SOD INJ 4 MG/ML VIAL ONE (11:19)
[2021-06-18] MEDS ORDERED: KETAMINE 50 MG/5 ML SYRINGE ONE (11:19)
[2021-06-18] MEDS ORDERED: LIDOCAINE 2% 2 ML VIAL/AMP(20MG/ML) INFIL ONE (11:19)
[2021-06-18 11:38] LABS: Partial Thromboplastin Time 28.6 Seconds (21.0-31.0); Prothrombin Time 10.7 Seconds (9.0-12.0)
--- NOTE | 2021-06-18 11:58 | History & Physical Bridge Note ---
Date of Service June 18, 2021 History & Physical Bridge Note I have examined the patient, reviewed the History & Physical and in the interval since the performance of the History & Physical I have noted the following changes of clinical significance: no changes noted
[2021-06-18] MEDS ORDERED: PHENYLEPHRINE 100MCG/ML 5ML SYR ONE (14:27)
--- NOTE | 2021-06-18 16:09 | Post Operative Brief Note ---
Immediate Post Op Note v1 Date of Surgery June 18, 2021 Pre & Post Diagnosis Operation Date: 06/18/21 13:05 Pre-Op Diagnosis: Right shoulder osteoarthritis with rotator cuff tear Post-Op Diagnosis: Right shoulder osteoarthritis with rotator cuff tear I identified the patient and participated in the time-out.: Yes Procedure Operation Date: 06/18/21 13:05 Actual Procedures Right Reverse Total Shoulder Arthroplasty with biceps tenodesis - Daron Grant M.D. Surgeon Daron Grant Wildlife Biology Technician Moise Magana PA-C Estimated Blood Loss 75 Findings Consistent with Post-Op Diagnosis
--- NOTE | 2021-06-18 16:13 | Operative Report ---
Post Operative Report Pre & Post Diagnosis Operation Date: 06/18/21 13:05 Pre-Op Diagnosis: Right shoulder osteoarthritis with rotator cuff tear Post-Op Diagnosis: Right shoulder osteoarthritis with rotator cuff tear I identified the patient and participated in the time-out.: Yes Procedure Operation Date: 06/18/21 13:05 Actual Procedures Right reverse total shoulder arthroplasty (96496) Open biceps tenodesis (11279) - Daron Grant M.D. Surgeon Daron Grant Industrial [employer] Moise Magana PA-C Estimated Blood Loss 75 Findings Consistent with Post-Op Diagnosis Specimens None Drains None Anesthesia Type General Regional Complications The drill guide for the standard 6.5 mm base plate central screw was not cleaned properly. There was a fairly large plug (about 1.5 cm) of tissue/bone from a previous patient within the lumen of the drill guide. This was discovered before use on this patient, and the drill guide and associated drill bit were passed off the field. Unfortunately, there were no other similar drill guides and drillbits sterile and available for use. It would have taken over an hour to wash and resterilized the drill guide and drill bit. I therefore eventually decided to upsize the central screw to a 9.5 mm central screw rather than prolong this patient's anesthesia any further. Disposition Disposition: Recovery Room Indications Ms. Padron is a 71-year old female with right shoulder pain and weakness. History, clinical exam, and imaging were consistent with the above diagnosis. Risks, benefits, and alternatives of surgery were explained in detail. The patient understood all this and wished to proceed. Description of Procedure Components Implanted: Tornier Reverse Total Shoulder implants Perform glenoid baseplate: 29mm, 15 degree full wedge with 9.5mm central screw and 5.0mm peripheral screws Glenosphere: 39mm standard Ascend Flex humeral stem: 5B Standard length (82mm) Humeral tray: 1.5 mm offset, +0mm thickness Polyethylene insert: 39mm, +6mm thickness Patient was identified in the preoperative holding area. Operative extremity was marked. Regional blockade was given by the Anesthesia Staff. Patient was then brought back to the operating room, and general anesthesia was induced without complication. Appropriate weight-based dose of Ancef was infused intravenously for antibiotic prophylaxis. The patient was then placed in the beachchair position. Right arm was then prepped and draped in a standard sterile fashion using Chlorhexidine prep. A standard deltopectoral incision was made through the skin and subcutaneous tissue. The cephalic vein was identified and retracted medially. Small branches to the deltoid were coagulated as necessary. The clavipectoral fascia was then incised and the subdeltoid space was opened. The rotator cuff was found to have a relatively small but full-thickness rotator cuff tear with a large calcification within the tendon tear, and I therefore decided to perform a reverse total shoulder arthroplasty as planned preoperatively. The biceps tendon was identified within the bicipital groove and tenodesed at the superior border of the pectoralis tendon with #2 FiberWire suture. The biceps tendon was then divided proximal to the tenodesis site and the rotator interval was opened. The proximal portion of the biceps tendon was excised. The remaining subscapularis tendon was elevated subperiosteally off of the lesser tuberosity. The glenohumeral joint was then dislocated, and large osteophytes were debrided with a ronguer. The humeral head cut was then made in the appropriate inclination and version using the cutting guide. The intramedullary canal of the humerus was then opened with a canal finder. The humeral canal was then sequentially broached to the appropriate size. A protective cap was then placed on top of the humeral trial. I then turned my attention to the glenoid. The proximal stump of the biceps tendon was excised, along with the labrum circumferentially around the glenoid. The Blueprint drill guide was then positioned on the glenoid, and the guidepin was then inserted. The 15 degree angled reamer was then inserted over the guidepin and an reamed to an appropriate depth. As noted in the complications section above, when I went to drill for the baseplate central screw, it was discovered that there was a fairly large plug of tissue/bone from a previous patient that was within the drill guide. Fortunately, this was discovered before use on this patient, and the drill guide and associated drill were passed off the field. Unfortunately, there is no other drill guide and drill bit sterilized and available for use. I attempted to use the drill bit for the peripheral screws as a substitute, but this was not quite large enough; I was unable to pass the tap for the 6.5mm central screw through this smaller hole. We discovered that it would take over an hour to wash and resterilize the drill guide and drill bit. Rather than prolong her anesthesia time any further, I decided to upsize the central screw to a 9.5mm screw. The central screw hole was drilled, and appropriate length 9.5mm central screw was selected. The baseplate was then implanted into place according to our preoperative Blueprint plan by tightening down the central screw. A peripheral 5mm nonlocking screw was placed postero-superiorly first for additional compression of the baseplate, and then additional locking 5 mm peripheral screws were placed to complete fixation of the baseplate. Glenosphere was then impacted and secured. A trial humeral tray and insert were placed on the trial humeral stem, and a trial reduction was carried out. Once I achieved acceptable joint stability and range of motion with the trial implants, the final humeral implants were assembled on the back table and then impacted into position. I then took the shoulder through full range of motion to ensure good stability and acceptable motion. Wound was then copiously irrigated with sterile saline. Deep fascia was closed with 0 V-lock suture. Subcutaneous tissue was closed with 2-0 V-lock, and skin was closed with 3-0 V-lock. Skin was then sealed with Dermabond. Sterile dressings were then applied with a waterproof silver-impregnated dressing, and the arm was placed into a sling. The patient was awakened from anesthesia and taken to the Post Anesthesia Care Unit in stable condition. There were no immediate complications from the procedure. I was present and scrubbed for the entire procedure, with the exception of final skin closure and dressing application. Due to the complex nature of the procedure, the entire surgery was performed with the operational assistance of Moise Magana PA-C. The critical care physician assistant, under direct supervision, was involved in the performance of all aspects of the surgical procedure including hemostasis, tissue incision and retraction, instrument management, patient positioning, and wound closure. I attest to the content of the Intraoperative Record and any orders documented therein. Any exceptions are noted below.
--- NOTE | 2021-06-18 16:57 | XRay Report ---
XR shoulder RT min 2V routine CLINICAL HISTORY: Post shoulder surgery COMPARISON: Right shoulder MRI February 26, 2021. Right shoulder radiographs February 04, 2020. FINDINGS: Alignment of the reverse total right shoulder arthroplasty is anatomic. There is no peripr osthetic fracture or unexpected radiopaque foreign body. IMPRESSION: Expected findings following reverse total right shoulder arthroplasty. ACT 112: Negative or not required by law. Electronically signed by: River Powell M.D. 06/18/2021 4:56 PM
[2021-06-18] MEDS ORDERED: bisacodyL 10 MG SUPP PR PRN (17:43)
[2021-06-18] MEDS ORDERED: ONDANSETRON INJ 2 MG/ML 2 ML VIAL IV PRN (17:43)
[2021-06-18] MEDS ORDERED: METOCLOPRAMIDE HCL INJ 5 MG/ML 2 ML VIAL IV PRN (17:43)
[2021-06-18] MEDS ORDERED: MAGNESIUM HYDROXIDE SUSP 30 ML UDC PO PRN (17:43)
[2021-06-18] MEDS ORDERED: VANCOMYCIN CONSULT ACTIVE PRN (17:43)
[2021-06-18] MEDS ORDERED: NALOXONE HCL 0.4 MG/1 ML VIAL/CARP IV PRN (17:43)
[2021-06-18] MEDS ORDERED: oxyCODONE HCL IR 5 MG TAB (IMMEDIATE RELEASE) PO PRN (17:43)
[2021-06-18] MEDS ORDERED: PHARMACY GLYCEMIC MGMT CONSULT PRN (17:43)
[2021-06-18] MEDS: SODIUM CHLORIDE 0.9% 1000ML 1,000 ML IV SCH (18:10)
[2021-06-18] MEDS ORDERED: CARBOHYDRATES FOR HYPOGLYCEMIA PO PRN (18:15)
[2021-06-18] MEDS ORDERED: GLUCAGON FOR INJ 1 MG VIAL IM PRN (18:15)
[2021-06-18] MEDS ORDERED: DEXTROSE 50% 50 ML SYRINGE IV PRN (18:15)
[2021-06-18] MEDS ORDERED: GLUCOSE 40% GEL 15 GM TUBE PO PRN (18:15)
[2021-06-18] MEDS ORDERED: GLUCOSE 10 TABS/TUBE PO PRN (18:15)
[2021-06-18] MEDS ORDERED: WARFARIN SOD 6 MG TAB PO SCH (20:00)
[2021-06-18] MEDS: DOCUSATE SODIUM 100 MG CAP PO SCH (20:58)
[2021-06-18] MEDS: METOPROLOL TARTRATE 25 MG TAB PO SCH (20:59)
[2021-06-18] MEDS ORDERED: SENNA 8.6 MG TAB PO SCH (21:00)
[2021-06-18] MEDS ORDERED: VENLAFAXINE HCL XR 37.5 MG CAPXR PO SCH (21:00)
[2021-06-18] MEDS ORDERED: ARTIFICIAL TEARS OPB SCH (21:00)
[2021-06-18] MEDS ORDERED: VENLAFAXINE HCL XR 75 MG CAPXR PO SCH (21:00)
[2021-06-18] MEDS ORDERED: ATORVASTATIN 10 MG TAB PO SCH (21:00)
[2021-06-18] MEDS ORDERED: clonazePAM 1 MG TAB PO SCH (21:00)
[2021-06-18] MEDS: ACETAMINOPHEN 500 MG TAB PO SCH (21:01)
[2021-06-18] MEDS ORDERED: MELATONIN 3 MG TAB PO SCH (22:00)
[2021-06-18] MEDS: INSULIN ASPART PER UNIT SC SCH ×2 (22:34)
[2021-06-18] MEDS: IBUPROFEN 600 MG TAB PO SCH (23:23)
[2021-06-18] MEDS: VANCOMYCIN HCL 1,750 MG in SODIUM CHLORIDE 0.9% 500 ML IV SCH (23:23)
[2021-06-19] MEDS: INSULIN ASPART PER UNIT SC SCH ×4 (00:04→12:51)
--- NOTE | 2021-06-19 01:15 | Anesthesiology Progress Note ---
Date of Service June 19, 2021 Anesthesia Post Procedure Vital Signs Vital Signs: Temp Pulse Pulse Resp BP Pulse Ox 06/19/21 00:27 36.4 C L 64 16 121/68 93 06/18/21 20:40 36.6 C 62 18 126/72 93 06/18/21 19:40 36.6 C 72 16 118/55 L 94 06/18/21 18:41 36.7 C 65 16 111/65 95 06/18/21 18:07 36.8 C 67 16 117/62 94 06/18/21 17:20 72 17 125/55 L 96 06/18/21 17:10 87 12 118/54 L 95 06/18/21 17:00 36.4 C L 67 14 126/61 94 06/18/21 16:50 67 20 131/62 98 06/18/21 16:40 69 20 112/75 97 06/18/21 16:30 36.2 C L 65 18 121/58 L 97 06/18/21 11:09 37 C 76 20 156/63 H 95 Transfer of Care Handoff Completed per policy Notes Mental Status: alert / awake / arousable and participated in evaluation Patient Amnestic to Procedure: Yes Nausea / Vomiting: adequately controlled Pain: adequately controlled Airway Patency, RR, SpO2: stable & adequate BP & HR: stable & adequate Hydration State: stable & adequate Anesthetic Complications: no major complications apparent and Pt Satisfied with anesthetic care
[2021-06-19] MEDS: SODIUM CHLORIDE 0.9% 1000ML 1,000 ML IV SCH (04:12)
[2021-06-19] MEDS: IBUPROFEN 600 MG TAB PO SCH ×2 (05:59→12:05)
[2021-06-19] MEDS: ACETAMINOPHEN 500 MG TAB PO SCH (06:00)
[2021-06-19 07:59] LABS: Basophils # (auto) 0.02 K/uL (0-0.2); Basophils % (auto) 0.1 %; Eosinophils # (auto) 0.02 K/uL (0-0.5); Eosinophils % (auto) 0.1 %; Hematocrit (blood only) 34.4 % (37-47); Hemoglobin 10.9 g/dL (12.0-16.0); Immature Granulocytes # (auto) 0.06 K/uL (0.00-0.02); Immature Granulocytes % (auto) 0.4 %; Lymphocytes # (auto) 1.28 K/uL (1.2-3.4); Lymphocytes % (auto) 8.4 %; Mean Corpuscular Hemoglobin 28.8 pg (25-34); Mean Corpuscular Hgb Conc 31.7 g/dL (32-36); Mean Corpuscular Volume 90.8 fL (80-100); Mean Platelet Volume 9.1 fL (7.4-10.4); Monocytes # (auto) 1.79 K/uL (0.11-0.59); Monocytes % (auto) 11.8 %; Neutrophils # (auto) 12.01 K/uL (1.4-6.5); Neutrophils % (auto) 79.2 %; Platelet Count 315 K/uL (130-400); RDW Coefficient of Variation 14.8 % (11.5-14.5); RDW Standard Deviation 48.9 fL (36.4-46.3); Red Blood Count 3.79 M/uL (4.2-5.4); White Blood Count 15.18 K/uL (4.8-10.8)
[2021-06-19 08:07] LABS: Prothrombin Time 10.9 Seconds (9.0-12.0)
--- NOTE | 2021-06-19 08:19 | Orthopedic Progress Note ---
Date of Service June 19, 2021 Assessment & Plan (1) Primary osteoarthritis, right shoulder: Plan: Postop day 1 status post reverse right total shoulder arthroplasty PT/OT protocols. DVT prophylaxis-warfarin, SCDs. Pain management as written. DC planning-planning for discharge home today. Admission and Anticipated Discharge Date Admission Date: June 18, 2021 Subjective Postop day 1 Patient sitting up in bed eating breakfast. No complaints this morning. Pain is controlled. Physical Exam Physical Exam: Silverlon dressing is clean, dry, and intact. Denies pain in the right elbow or wrist. She has good range of motion of her right wrist hand and fingers. She has continued decrease sensation in the thumb and index finger which she states is slowly resolving. Fingers 3 through 5 have good sensation. Sling is in place. Results & Data ([facility]) Vital Signs (Past 12 Hours) Vital Signs Temp Pulse Resp BP Pulse Ox 06/19/21 07:54 36.4 C L 62 16 111/64 96 06/19/21 02:46 36.5 C 60 16 113/69 95 06/19/21 00:27 36.4 C L 64 16 121/68 93 06/18/21 20:40 36.6 C 62 18 126/72 93 Laboratory Results Laboratory Results WBC 15.18 K/uL (4.8-10.8) H 06/19/21 07:21 RBC 3.79 M/uL (4.2-5.4) L 06/19/21 07:21 Hgb 10.9 g/dL (12.0-16.0) L 06/19/21 07:21 Hct 34.4 % (37-47) L 06/19/21 07:21 MCV 90.8 fL (80-100) 06/19/21 07:21 MCH 28.8 pg (25-34) 06/19/21 07:21 MCHC 31.7 g/dL (32-36) L 06/19/21 07:21 RDW Std Deviation 48.9 fL (36.4-46.3) H 06/19/21 07:21 RDW Coeff of Antonino 14.8 % (11.5-14.5) H 06/19/21 07:21 Plt Count 315 K/uL (130-400) 06/19/21 07:21 MPV 9.1 fL (7.4-10.4) 06/19/21 07:21 Immature Gran % (Auto) 0.4 % 06/19/21 07:21 Neut % (Auto) 79.2 % 06/19/21 07:21 Lymph % (Auto) 8.4 % 06/19/21 07:21 [place] % (Auto) 11.8 % 06/19/21 07:21 Eos % (Auto) 0.1 % 06/19/21 07:21 Baso % (Auto) 0.1 % 06/19/21 07:21 Neut # (Auto) 12.01 K/uL (1.4-6.5) H 06/19/21 07:21 Lymph # (Auto) 1.28 K/uL (1.2-3.4) 06/19/21 07:21 [place] # (Auto) 1.79 K/uL (0.11-0.59) H 06/19/21 07:21 Eos # (Auto) 0.02 K/uL (0-0.5) 06/19/21 07:21 Baso # (Auto) 0.02 K/uL (0-0.2) 06/19/21 07:21 Immature Gran # (Auto) 0.06 K/uL (0.00-0.02) H 06/19/21 07:21 PT 10.9 Seconds (9.0-12.0) 06/19/21 07:21 INR 1.0 (0.9-1.1) 06/19/21 07:21 APTT 28.6 Seconds (21.0-31.0) 06/18/21 11:07 PTT Ratio 1.0 06/18/21 11:07 Sodium 137 mmol/L (136-145) 06/19/21 07:21 Potassium 4.1 mmol/L (3.5-5.1) 06/19/21 07:21 Chloride 105 mmol/L (98-107) 06/19/21 07:21 Carbon Dioxide 26 mmol/L (21-32) 06/19/21 07:21 Anion Gap 6 (3-11) 06/19/21 07:21 BUN 28 mg/dl (6-23) H 06/19/21 07:21 Creatinine 1.06 mg/dl (0.6-1.2) 06/19/21 07:21 Est Cr Clr Drug Dosing 64.8 ml/min 06/19/21 07:21 Est GFR ( Amer) 60.8 ml/min 06/19/21 07:21 Est GFR (Non-Af Amer) 52.4 ml/min 06/19/21 07:21 BUN/Creatinine Ratio 26.4 (10-20) H 06/19/21 07:21 Glucose 119 mg/dl (70-99(Fasting)) H 06/19/21 07:21 POC Glucose 123 mg/dl (70-99) H 06/19/21 08:21 Calcium 8.0 mg/dl (8.5-10.1) L 06/19/21 07:21 SARS-CoV-2, RNA, NAAT NEGATIVE (NEGATIVE) 06/18/21 11:10 Blood Type O Negative 06/18/21 11:07 Antibody Screen NEGATIVE 06/18/21 11:07 Impressions Shoulder X-Ray 06/18/21 15:32 XR shoulder RT min 2V routine CLINICAL HISTORY: Post shoulder surgery COMPARISON: Right shoulder MRI February 26, 2021. Right shoulder radiographs February 04, 2020. FINDINGS: Alignment of the reverse total right shoulder arthroplasty is anatomic. There is no periprosthetic fracture or unexpected radiopaque foreign body. IMPRESSION: Expected findings following reverse total right shoulder arthroplasty. ACT 112: Negative or not required by law. Electronically signed by: River Powell M.D. 06/18/2021 4:56 PM
[2021-06-19] MEDS: DOCUSATE SODIUM 100 MG CAP PO SCH (08:24)
[2021-06-19] MEDS: METOPROLOL TARTRATE 25 MG TAB PO SCH (08:26)
[2021-06-19 08:27] LABS: BUN Creatinine Ratio 26.4 (10-20); Creatinine Clr Calc Pharmacy 64.8 ml/min; Est GFR (African American) 60.8 ml/min; Est GFR (Non-African American) 52.4 ml/min; Potassium 4.1 mmol/L (3.5-5.1)
[2021-06-19] MEDS ORDERED: PANTOprazole 40 MG TAB PO SCH (09:00)
[2021-06-19] MEDS ORDERED: LOSARTAN POTASSIUM 50 MG TAB PO SCH (09:00)
[2021-06-19] MEDS ORDERED: CALCIUM CARBONATE 500 MG CHEWABLE TAB PO SCH (09:00)
[2021-06-19] MEDS ORDERED: metFORMIN HCL 500 MG TAB PO SCH (09:00)
[2021-06-19] MEDS ORDERED: CHOLECALCIFEROL 1,000 UNITS 25 MCG TAB PO SCH (09:00)
[2021-06-19] MEDS ORDERED: MULTIVITAMIN PO SCH (09:00)
[2021-06-19] MEDS ORDERED: CEROVITE ADV FORMULA TAB PO SCH (09:00)
[2021-06-19] MEDS ORDERED: hydroCHLOROthiazide 25 MG TAB PO SCH (09:00)
[2021-06-19] MEDS ORDERED: MULTIVITAMIN TAB PO SCH (09:00)
[2021-06-19] MEDS: VANCOMYCIN HCL 1,750 MG in SODIUM CHLORIDE 0.9% 500 ML IV SCH (10:41)
== END 2021-06-19 14:07 | disposition home or self-care (01) ==
LOC: ASU 10:40 → INTOOBSV 15:32 → 3W 15:32
DX: M75.121 Complete rotator cuff tear or rupture of right shoulder, not specified as traumatic; Z79.84 Long term (current) use of oral hypoglycemic drugs; S46.111A Strain of muscle, fascia and tendon of long head of biceps, right arm, initial encounter; X58.XXXA Exposure to other specified factors, initial encounter; Z91.048 Other nonmedicinal substance allergy status; G47.33 Obstructive sleep apnea (adult) (pediatric); G25.81 Restless legs syndrome; Z98.49 Cataract extraction status, unspecified eye; Z79.01 Long term (current) use of anticoagulants; Z98.890 Other specified postprocedural states; M19.011 Primary osteoarthritis, right shoulder; I10 Essential (primary) hypertension; I48.91 Unspecified atrial fibrillation; Z88.1 Allergy status to other antibiotic agents; Z96.651 Presence of right artificial knee joint; Z88.2 Allergy status to sulfonamides; Z88.8 Allergy status to other drugs, medicaments and biological substances; Z91.013 Allergy to seafood; E11.9 Type 2 diabetes mellitus without complications; K21.9 Gastro-esophageal reflux disease without esophagitis; Z98.51 Tubal ligation status; Z79.899 Other long term (current) drug therapy; Z99.89 Dependence on other enabling machines and devices; Z91.018 Allergy to other foods